=== PATIENT | male | born 1945 | race Caucasian/White ===

== ENCOUNTER → 2017-07-12 12:26 | Outpatient (CLI) | payer OTHER, SELFPAY ==
--- NOTE | 2017-07-12 | DI.ECHO.S_ITS ---
[facility] +---------+ : : [address] : : : : [id number] : : : : Phone: [phone]+ Echocardiogram Report + + :Name: KAMALA STRANGE Study Date: 07/12/2017 Height: 67 in : :[facility] Weight: 193 lb : : Gender: Male BSA: 2.0 m2 : :: 1945 Age: 72 yrs BP: 110/68 mmHg: :Reason For Study: Murmur : :Ordering Physician: Dr. Vizcaino : :Sandrinege Performed By: Ade Romeo : + + Interpretation Summary The left ventricle is normal in size, wall thickness, and systolic function without any focal wall motion abnormalities. The ejection fraction is estimated to be 60-65%. Assessment of diastolic parameters indicates a relaxation abnormality of the left ventricle, consistent with normal filling pressures. The right ventricle is at the upper limits of normal in size. The right ventricular systolic function is normal. The right ventricular systolic pressure is estimated at 30 mmHg assuming a right atrial pressure of 8 mm Hg. There is mild biatrial enlargement. There is an eccentric jet of aortic insufficiency directed against the anterior mitral leaflet which makes it difficult to assess. There is aortic regurgitation probably in the range of moderate. There is no other significant valvular heart disease. The aortic root is mildly dilated. The ascending aorta is mild-moderately enlarged. The aortic arch is mildly enlarged. Procedure: A two-dimensional transthoracic echocardiogram with color flow and Doppler was performed. The study quality was technically adequate. There is no prior echocardiogram noted for this patient. The patient was in normal sinus rhythm during the exam. Left Ventricle: The left ventricle is normal in size, wall thickness, and systolic function without any focal wall motion abnormalities. The ejection fraction is estimated to be 60-65%. Assessment of diastolic parameters indicates a relaxation abnormality of the left ventricle, consistent with normal filling pressures. Right Ventricle: The right ventricle is at the upper limits of normal in size. The right ventricular systolic function is normal. Atria: There is mild biatrial enlargement. There is no Doppler evidence for an interatrial shunt. Mitral Valve: The mitral valve leaflets appear mildly thickened, but open well. There is trace mitral regurgitation. Aortic Valve: The aortic valve is trileaflet. The aortic valve opens well. There is an eccentric jet of aortic insufficiency directed against the anterior mitral leaflet. There is aortic regurgitation probably in the range of moderate. Tricuspid Valve: The tricuspid valve is normal in structure and function. There is a trace or physiologic amount of tricuspid regurgitation. The right ventricular systolic pressure is estimated at 30 mmHg assuming a right atrial pressure of 8 mm Hg. Pulmonic Valve: The pulmonic valve is not well visualized. There is a trace or physiologic amount of pulmonic regurgitation. There is no other significant valvular heart disease. Great Vessels: The aortic root is mildly dilated. The ascending aorta is mild-moderately enlarged. The aortic arch is mildly enlarged. The IVC is dilated (diameter is greater than 2.1 cm) yet it collapses greater than 50% with a sniff. This suggests a right atrial pressure of 8 mm Hg. Pericardium/ Pleura There is no pericardial effusion. MMode/2D Measurements & Calculations LVIDd: 4.5 cm LVOT diam: 2.3 cm LVIDs: 2.1 cm Ao root diam: 4.4 cm FS: 53.6 % Aortic Jxn: 3.1 cm EPSS: 0.23 cm asc Aorta Diam: 4.0 cm IVSd: 1.1 cm Ao Arch Diam (Prox Trans): 3.5 cm LVPWd: 0.90 cm LV ackerman. diameter/BSA (cm/m^2): 2.3 LV sys. diameter/BSA (cm/m^2): 1.0 LA A2 area: 24.0 cm2 RA long axis: 6.0 cm LA A4 area: 24.6 cm2 RA area: 21.5 cm2 LA length (vol): 6.1 cm RA vol: 65.3 ml LA vol: 81.7 ml RA : 32.8 ml/m2 LA vol index: 41.0 ml/m2 IVC diam: 2.9 cm RVD1 (basal): 4.3 cm RVD2 (mid): 2.9 cm TAPSE: 3.2 cm Doppler Measurements & Calculations Ao V2 max: 154.0 cm/sec LVOT Max Kirill: 129.4 cm/sec Ao V2 mean: 81.8 cm/sec LV V1 max P.7 mmHg Ao max P.5 mmHg LV V1 VTI: 23.3 cm Ao mean P.6 mmHg GAYLE(I,D): 3.8 cm2 Ao V2 VTI: 26.0 cm GAYLE(V,D): 3.6 cm2 sev ratio: 0.90 GAYLE indexed to BSA (cm^2/m^2): 1.9 MV E max kirill: 61.4 cm/sec TR max kirill: 233.0 cm/sec MV A max kirill: 72.0 cm/sec TR max P.7 mmHg MV E/A: 0.85 PA V2 max: 75.3 cm/sec Med Peak E' Kirill: 5.8 cm/sec PA V2 mean: 53.1 cm/sec E/E' med: 10.7 PA mean P.3 mmHg Lat Peak E' Kirill: 6.6 cm/sec PA Accel Time: 0.07 sec E/E' lat: 9.3 E/e' average: 10.0 MV dec time: 0.31 sec MV P1/2t: 91.7 msec MV P1/2t max kirill: 62.1 cm/sec MVA(P1/2t): 2.4 cm2 Reading Physician:JOVON
== END ==
PROVIDERS: Family Provider Family Medicine; PCP Family Medicine; Visit Provider Family Medicine
DX: R01.1 Cardiac murmur, unspecified (principal)
CPT/HCPCS: 93306

== ENCOUNTER → 2017-07-23 08:30 | Outpatient (CLI) | payer OTHER, SELFPAY ==
[2017-07-23 10:01] LABS: Add Manual Diff / Slide Review NO; Basophils Percent Auto 0.9 % (0-2); Hematocrit 41.5 % (41-53); Hemoglobin 14.3 g/dL (13.5-17.5); Lymphocytes Percent Auto 23.3 % (25-40); Mean Corpuscular HGB Conc 34.4 % (30-36); Mean Corpuscular Hemoglobin 31.4 PG (26-34); Mean Corpuscular Volume 91.4 fL (80-100); Monocytes Percent Auto 9.8 % (3-14); Neutrophils Absolute Auto 3900 /uL (3000-5900); Platelet Count 254 X10^3/uL (150-400); Red Blood Cell Count 4.54 X10^6/uL (4.5-5.9); Red Cell Distribution Width 13.7 % (11.6-14.8); White Blood Cell Count 6.3 X10^3/uL (4.5-11.0)
[2017-07-23 10:12] LABS: Alanine Aminotransferase 27 IU/L (21-72); Albumin 4.1 g/dL (3.5-5.0); Albumin Globulin Ratio 1.3 (1.0-2.8); Alkaline Phosphatase 48 U/L (38-126); Aspartate Aminotransferase 26 IU/L (17-59); Bilirubin Total 0.7 mg/dL (0.2-1.3); Blood Urea Nitrogen 18 mg/dL (9-20); Calcium 9.1 mg/dL (8.4-10.2); Carbon Dioxide 32 mmol/L (22-32); Chloride 101 mmol/L (98-107); Cholesterol 202 mg/dL (140-199); Estimated Glomerular Filt Rate > 60.0 mL/min (>60); Globulin 3.1 g/dL (1.7-4.1); Glucose 94 mg/dL (80-110); HDL Cholesterol 47 mg/dL (40-60); HEMOLYSIS < 15 (0-50); LDL Cholesterol Calculated 132 mg/dL (<100); Potassium 4.6 mmol/L (3.4-5.1); Sodium 140 mmol/L (137-145); Total Protein 7.2 g/dL (6.3-8.2); Triglycerides 114 mg/dL (35-150)
[2017-07-23 10:40] LABS: TSH w/ Reflex to FT4 1.86 uIU/mL (0.47-4.68)
[2017-07-23 10:42] LABS: Prostate Specific Antigen Scrn 1.69 ng/mL (0.1-4.0)
== END ==
PROVIDERS: PCP Family Medicine; Visit Provider Family Medicine
DX: Z12.5 Encounter for screening for malignant neoplasm of prostate (principal); E78.5 Hyperlipidemia, unspecified
CPT/HCPCS: 36415; 80053; 80061; 84443; 85025; G0103

== ENCOUNTER → 2018-08-12 12:45 | Outpatient (CLI) | payer OTHER, SELFPAY ==
[2018-08-12 13:26] LABS: Add Manual Diff / Slide Review NO; Basophils Absolute Auto 100 /uL (0-100); Basophils Percent Auto 0.9 % (0-2); Eosinophils Absolute Auto 300 /uL (0-450); Eosinophils Percent Auto 4.2 % (2-4); Hematocrit 43.1 % (41-53); Hemoglobin 14.5 g/dL (13.5-17.5); Lymphocytes Absolute Auto 1500 /uL (1100-4500); Lymphocytes Percent Auto 24.2 % (25-40); Mean Corpuscular HGB Conc 33.6 % (30-36); Mean Corpuscular Hemoglobin 31.1 PG (26-34); Mean Corpuscular Volume 92.6 fL (80-100); Monocytes Absolute Auto 700 /uL (0-900); Neutrophils Absolute Auto 3700 /uL (1500-7000); Neutrophils Percent Auto 59.7 % (50-75); Platelet Count 268 X10^3/uL (150-400); Red Blood Cell Count 4.66 X10^6/uL (4.5-5.9); Red Cell Distribution Width 13.7 % (11.6-14.8); White Blood Cell Count 6.3 X10^3/uL (4.5-11.0)
[2018-08-12 13:37] LABS: Bacteria Urine None Seen
[2018-08-12 13:58] LABS: Appearance Urine UA CLEAR; Bilirubin Urine UA NEGATIVE (NEGATIVE); Color Urine UA YELLOW; Glucose Urine UA NEGATIVE (Negative); Ketones Urine UA NEGATIVE (NEGATIVE); Leukocyte Esterase Urine UA TRACE (NEGATIVE); Nitrite Urine UA NEGATIVE (Negative); Occult Blood Urine UA TRACE-LYSED (Negative); Protein Urine UA NEGATIVE (Negative); Urobilinogen Urine UA 0.2 E.U./dL (0.2)
[2018-08-12 14:38] LABS: RBC Urine 1-5/HPF (0-5/HPF); WBC Urine 1-5/HPF (0-5/HPF)
[2018-08-12 14:39] LABS: Culture Indicated Urine Specimen Cultured
[2018-08-12 14:55] LABS: Prostate Specific Antigen Scrn 1.49 ng/mL (0.1-4.0)
[2018-08-12 15:45] LABS: TSH w/ Reflex to FT4 1.63 uIU/mL (0.47-4.68)
== END ==
PROVIDERS: Family Provider Family Medicine; PCP Family Medicine; Visit Provider Family Medicine
DX: E78.5 Hyperlipidemia, unspecified (principal); I35.0 Nonrheumatic aortic (valve) stenosis; K21.9 Gastro-esophageal reflux disease without esophagitis; N40.0 Benign prostatic hyperplasia without lower urinary tract symptoms
CPT/HCPCS: 36415; 81001; 84443; 85025; 87086; G0103

== ENCOUNTER 2018-12-10 07:33 | Day surgery (SDC) | payer OTHER, SELFPAY ==
[2018-12-08 10:41] VITALS: BMI 26.2
[2018-12-10] VITALS (12 sets, daily range): BP systolic 113–127; BP diastolic 57–64; PULSE 56–78; RESP 12–16; TEMP 36.2–37.7; O2SAT 92–99; BMI 26.2
--- NOTE | 2018-12-10 06:00 | DI.RAD.S_ITS ---
PROCEDURE: XR CHEST 1V INDICATIONS: pre operative TECHNIQUE: One view of the chest was acquired. COMPARISON: [facility], , CHEST 2 VIEW, 01/18/2010, 8:10. FINDINGS: Surgical changes and devices: None. Lungs and pleura: There is a linear opacity in the left midlung compatible with atelectasis or scarring. No definite acute consolidation. No pleural effusions or pneumothorax. Mediastinum: Mediastinal contours appear normal. Heart size is normal. Bones and chest wall: No suspicious bony lesions. Overlying soft tissues appear unremarkable. IMPRESSION: 1. No definite acute cardiopulmonary disease. Dictated by: Tim Negrete M.D. on 12/10/2018 at 9:25 Approved by: Tim Negrete M.D. on 12/10/2018 at 9:26
[2018-12-10] MEDS: LACTATED RINGERS 1,000 ML 100 ML IV (08:00)
--- NOTE | 2018-12-10 08:41 | PM.PREOP ---
Pre-operative Note Interval Note History & Physical reviewed/Exam performed by Physician: Yes Changes to H&P: No H&P completed within 30 days and has changed as indicated here:: No changes since last visit. Risks and benefits of laparoscopic, possible open right and possible left inguinal hernia were discussed. The patient desires to proceed with surgery.
[2018-12-10] MEDS: CEFAZOLIN 2 GM/100 ML FROZ.PIGGY IV (08:48)
--- NOTE | 2018-12-10 09:23 | SUR.OPER ---
Supine on padded OR bed, head on pillow, bilateral arms padded and tucked at side, legs uncrossed, safety belt at thigh, tape over blanket over lower legs .
[2018-12-10] MEDS: BUPIVACAINE 0.25% W/ EPI 30 ML VIAL INJ (09:47)
[2018-12-10] MEDS: LACTATED RINGERS 1,000 ML 42 ML IV (10:31)
[2018-12-10] MEDS: ACETAMINOPHEN IV 1,000 MG/100 ML VIAL 400 MG IV (11:30)
--- NOTE | 2018-12-10 11:58 | PM.OP.1 ---
Operative Date/Time/Diagnoses Date of procedure: 12/10/18 Time of procedure: 11:58 Pre-op diagnosis: right side recurrent inguinal hernia; left side possible inguinal hernia. Post-op diagnosis: other (right side recurrent indirect inguinal hernia; left side indirect inguinal hernia) Procedure & Clinicians Procedure: Laparoscopic repair of recurrent right inguinal hernia without obstruction or gangrene; laparoscopic repair of non recurrent left inguinal hernia without obstruction or gangrene Same procedure as scheduled: Yes Indications: Symptomatic right inguinal hernia, suspected left inguinal hernia Surgeon: Marisol Gomez Click Yes if Unassisted: Yes Anesthesia Type: General and Local Operative Notes Findings: Large right were current indirect inguinal hernia, moderate-sized left non her current indirect inguinal hernia Closure Type: primary Specimen(s): none sent Applied: catheter Estimated Blood Loss (mL): 15 Blood products transfused: none Procedure in detail: Patient was brought to the operating room and placed supine on the OR table. Appropriate perioperative antibiotics were given and sequential compression devices placed on both legs and turned on. General anesthesia was induced the patient was intubated by Dr. Barnhart. The patient was then positioned with both arms tucked, and a Villalba was placed in sterile fashion. The groin hair was clipped, and the abdomen and bilateral groins were prepped and draped in sterile fashion. Surgical time-out was conducted. Local anesthetic with cord% Marcaine with epi was injected just superior to the umbilicus. A 1 cm vertical incision was made in the skin at this site and the umbilical stalk was grasped with a Woo and elevated Veress needle was passed through the fascia and a saline drop test was performed which was consistent with intra-abdominal positioning without obstruction. The abdomen was then insufflated with CO2 up to 15 mm of mercury. The patient tolerated this well. Once adequate insufflation was achieved the supraumbilical port was placed using a 5 mm optical trocar with a 5 mm 30 degree scope inside of it. Once the initial port was in good position and used the camera to take a look around the abdomen there were no injuries from port placement. There were some adhesions seen down in the pelvis. There was a deep indirect hernia defect seen on the right and a moderate indirect hernia defect seen on the left. At this point a 2nd 5 mm port was placed in the same fashion in the right midclavicular line at the level of the umbilicus. The umbilical port was then upsized to a 12 mm port, and an additional 5 mm port was placed on the left side in the midclavicular line at the level of the umbilicus and in the same fashion. Once all of our ports were placed in the patient was put into Trendelenburg position local anesthetic was injected in the inguinal canal and in the area of the proposed peritoneal incision using 0.25% Marcaine with epi, 30 cc on each side. Metzenbaum scissors with cautery was then used to open the peritoneum about 10 cm superior to the ASIS. A transverse incision was made from the midline laterally across the abdominal wall. The peritoneal flap was then dissected down to the level of the internal ring. This is a significant amount of scarring in this area consistent with her current inguinal hernia. Tedious dissection was carried out for about another 45 minutes to dissect down the hernia sac and surrounding adhesions. Once the entire myopectineal orifice was exposed I was able to examine the direct and femoral spaces and there was not a hernia seen in either space. At this point a right-sided anatomical hydrophilic Covidien mesh was placed into the abdomen and positioned in the defect covering the entire myopectineal orifice completely. The absorbable tacking device was used to secure it to the pubic tubercle with 2 tacks. Attention was then turned to the left groin. Local anesthetic was infiltrated in the same manner. A transverse peritoneal incision was made using Metzenbaum scissors and cautery in the same fashion as was done on the right this flap was developed all the way down to the inguinal canal, and the indirect hernia defect was exposed. The hernia sac was dissected down with relative ease. There was not nearly as significant scarring and adhesions as on the recurrence side. Once the entire myopectineal orifice was exposed, we were able to see there was no direct defect or femoral defect. A large 3DMax lightweight mesh was brought into the field it was soaked in saline and then placed through the umbilical port in the left groin defect. It was secured to the pubic tubercle with 2 absorbable tacks it was spread out entirely covering all potential defects in the entire myopectineal orifice. I then closed both peritoneal flaps using the absorbable tacking device with good mesh coverage, no bleeding, and no exposed mesh. On the right side there was a significant hernia sac which was hanging out of the center of the peritoneal flap. Used to a PDS endoloop to secure the neck of the hernia sac so that it would not invaginate and make a placed for bowel to become incarcerated. At the conclusion of the case both flaps were in good position with good mesh coverage and good hemostasis. The umbilical port site was then closed using transfascial 0 Vicryl sutures. The abdomen was desufflated. Local anesthetic was infiltrated at this umbilical port site as well as the other 2 port sites. The skin was closed with 3 0 Vicryl and 4 0 Monocryl. The skin edges were sealed with Dermabond. The patient was then awakened from anesthesia and extubated. He was transferred to the PACU in stable condition. Needle, sponge, and instrument counts were correct x2 at the end of the case. The Villalba catheter was removed prior to transfer to the PACU. Complications: none Post-operative Condition: stable Disposition: PACU
[2018-12-10] MEDS: fentaNYL 100 MCG/2 ML INJ 50 MCG IV ×2 (12:25→12:30)
[2018-12-10] MEDS: OXYCODONE IR 5 MG TABLET PO (12:45)
[2018-12-10] MEDS: ONDANSETRON 4 MG/2 ML INJ IV (13:01)
[2018-12-10] MEDS: ALBUTEROL 2.5 MG/3 ML NEB (ADULT) INH (13:55)
== END 2018-12-10 15:57 | disposition home or self-care (01) ==
PROVIDERS: PCP Family Medicine; Visit Provider Surgery
PROC: 0YQ54ZZ Repair Right Inguinal Region, Percutaneous Endoscopic Approach (ICD-10-PCS; CPT 49651; principal; 2018-12-10 08:45)
DX: K40.21 Bilateral inguinal hernia, without obstruction or gangrene, recurrent (principal); N40.0 Benign prostatic hyperplasia without lower urinary tract symptoms; K21.9 Gastro-esophageal reflux disease without esophagitis
CPT/HCPCS: 49651; 71045; 94640; 94762; C1781; J0131; J0330; J0690; J1100; J1885; J2250; J2405; J2704; J3010; J7613

== ENCOUNTER 2018-12-13 00:16 | Emergency (ER) | payer OTHER, SELFPAY ==
[2018-12-13 00:25] VITALS: BP 137/69; PULSE 77; RESP 16; TEMP 36.6; O2SAT 99; BMI 24.3
--- NOTE | 2018-12-13 00:31 | ED_ITS ---
HPI - SOB/Dyspnea General Chief Complaint: Shortness of Breath/Dyspnea Stated Complaint: operation on wed/when lay down cant breathe Time Seen by Provider: 12/13/18 00:16 Source: patient Mode of arrival: Family Vehicle Limitations: no limitations History of Present Illness HPI Narrative: 73-year-old male former smoker with history of GERD presents with multiple family members in the chief complaint of some difficulty in breathing over the past few days. He was recently seen and a hernia repaired. In the aftermath he denies any fever chills nor any abdominal pain, he is passing gas and having bowel movements. He does state that any time he lays flat he has difficulty breathing, when more questions are asked it becomes clear that it is not trouble breathing as much as he feels like he is choking on his secretions. He did have a brief endotracheal intubation during his procedure. He denies any weight gain or lower extremity edema. He denies any chest pain. He denies any sore throat but feels like the secretions pool at the back of his throat when he lays flat. MD Complaint: shortness of breath Onset (ago): day(s) Severity: mild Consistency/Duration: intermittent Exacerbating factors: lying flat Associated symptoms: denies other symptoms Treatment prior to arrival: none Related Data Home Medications Medication Instructions Recorded Confirmed lansoprazole 15 mg capsule,delayed 15 mg PO DAILY 12/04/18 12/10/18 release alprazolam [Xanax] 25 mg PO DAILY PRN 12/09/18 12/10/18 hydrocodone-acetaminophen [Vicodin] 1 tab PO Q4-6H PRN 12/09/18 12/10/18 Previous Rx's Medication Instructions Recorded naproxen 500 mg tablet 500 mg PO BID PRN #60 tab 02/28/18 docusate sodium 100 mg PO BID #60 cap 12/10/18 oxycodone 5 mg PO Q4H PRN #30 cap MDD 12 12/10/18 prednisone 20 mg PO DAILY #5 tab 12/13/18 Allergies Allergy/AdvReac Type Severity Reaction Status Date / Time No Known Drug Allergies Allergy Verified 12/04/18 10:16 Review of Systems Constitutional Constitutional: Denies chills, Denies fatigue, Denies fever(s), Denies frequent falls, Denies lethargy and Denies weakness Eyes Eyes: Denies change in vision, Denies eye discharge, Denies irritation and Denies loss of vision ENT Ears, Nose, Mouth, and Throat: Denies change in voice, Denies dizziness, Denies neck pain, Denies sore throat and Denies throat swelling Comments: Choking sensation Cardiovascular Cardiovascular: Denies chest pain, Denies irregular heart rhythm, Denies lightheadedness, Denies palpitations, Denies dyspnea, Denies dyspnea on exertion and Denies orthopnea Respiratory Respiratory: Denies cough, Denies dyspnea, Denies dyspnea on exertion and Denies wheezing Gastrointestinal Gastrointestinal: Denies abdominal pain, Denies change in bowel habits, Denies diarrhea, Denies nausea and Denies vomiting Genitourinary Genitourinary: Denies hematuria, Denies flank pain, Denies urinary incontinence and Denies urinary urgency Musculoskeletal Musculoskeletal: Denies back pain, Denies muscle weakness, Denies neck pain, Denies numbness and Denies tingling Integumentary/Breasts Skin/Breast: Denies pruritus, Denies erythema, Denies rash and Denies wounds Neurologic Neurologic: Denies behavioral changes, Denies confusion, Denies dizziness, Denies frequent falls, Denies loss of vision, Denies numbness, Denies tingling and Denies weakness Psychiatric Psychiatric: Denies anxiety, Denies behavioral changes, Denies confusion, Denies depression, Denies homicidal ideation and Denies suicidal ideation Endocrine Endocrine: Denies fatigue, Denies flushing and Denies palpitations Hematologic/Lymphatic Hematologic/Lymphatic: Denies easy bruising Allergic/Immunologic Allergic/Immunologic: Denies urticaria, Denies throat swelling and Denies wheezing Patient History Medical History (Updated 12/13/18 @ 00:46 by Mohsen Cervantes DO) Cervical spine disease (Chronic) Degenerative joint disease (DJD) of lumbar spine (Chronic) GERD (gastroesophageal reflux disease) (Chronic) Pneumonia (Acute) Scoliosis (Chronic) Surgical History (Updated 12/08/18 @ 10:50 by Chantelle Zhao RN) Anesthesia (Resolved) Anesthesia (Resolved) Status post hernia repair (Resolved 1987) Family History Brother Age: 76 Malignant neoplasm of liver, unspecified liver malignancy type Father Macular degeneration Mother GERD (gastroesophageal reflux disease) Throat cancer Sister Age: 75 Abdominal aortic aneurysm (AAA) without rupture Heart disease Social History marital status: household members: spouse occupational status: previously employed Smoking Status: Former smoker alcohol intake: current substance use type: does not use Social History marital status: household members: spouse occupational status: previously employed Smoking Status: Former smoker alcohol intake: current substance use type: does not use alcohol intake frequency: 0-2 drinks per day Substance Use Type: does not use Exam Narrative Exam Narrative: GEN: AOx3 and in mild distress EYES: Pupils are equal, round, and reactive to light and accommodation. Extraoccular muscles are intact bilaterally. There is no subconjunctival hemorrhage or exudate. ENT: Mild edema of uvula, no tonsillar swelling. No pharyngeal edema CHEST: Lungs are clear to auscultation bilaterally and free of wheezes, rales, or rhonchi. Heart rate is regular rhythm, there are no murmurs, clicks, rubs, or gallops. There is no chest wall tenderness. ABD: Abdomen is soft and nontender. There is no guarding or rebound. Bowel sounds are normal in all 4 quadrants. There is no mass or organomegaly. EXT: Full painless ROM of all extremities with no loss of sensation or strength. SKIN: Warm, pink, and dry. No erythema or rash Initial Vital Signs Initial Vital Signs: Vital Signs Temperature 98 F 12/13/18 00:25 Pulse Rate 77 12/13/18 00:25 Respiratory Rate 16 12/13/18 00:25 Blood Pressure 137/69 12/13/18 00:25 Pulse Oximetry 99 12/13/18 00:25 Course Orders Ordered: ED Orders 12/13/18 00:31 EKG-12 Lead Routine Discontinued Medications Prednisone (Deltasone) 40 mg PO NOW ONE Stop: 12/13/18 00:45 Last Admin: 12/13/18 01:08 Dose: 40 mg Documented by: LISA Vital Signs Vital signs: Vital Signs - 8 hr 12/13/18 00:25 Temperature 98 F Pulse Rate 77 Respiratory Rate 16 Blood Pressure 137/69 Pulse Oximetry 99 MDM - SOB/Dyspnea MDM Narrative Medical decision making narrative: Initially patient complains of shortness of breath but after quick discussion he has a choking sensation when he lays flat. He has no pain and no true shortness of breath. On exam he has no crackles and no lower extremity edema. He does have a slightly swollen uvula and my suspicion is that he has some pharyngeal irritation after his intubation. He is very stable, has a reassuring exam. Return precautions given and questions answered to their apparent satisfaction Discharge Plan Departure Patient Disposition: Home Clinical Impression: Uvulitis Discharge Date/Time: 12/13/18 01:20 Instructions: DI for Uvulitis Activity Restrictions/Additional Instructions: *You have been diagnosed with [ choking sensation due to mildly swollen uvula ] *What to do: *Take medications as directed: Over the counter antihistamines, decongestants. [facility] *Follow up with your primary care provider in 2-3 days, call for an appointment. Let them know you were seen in the Emergency Department and that we ask that you be seen in follow up *Return to ER if you should have any new, worsening or concerning symptoms such as worsening trouble with swallowing, breathing or other troublesome sym ptoms Prescriptions: New prednisone 20 mg tablet 20 mg PO DAILY Qty: 5 RF: 0 No Action naproxen 500 mg tablet 500 mg PO BID PRN (Reason: pain) Qty: 60 RF: 5 lansoprazole 15 mg capsule,delayed release(DR/EC) 15 mg PO DAILY RF: 0 alprazolam [Xanax] 2 mg tablet 25 mg PO DAILY PRN (Reason: Anxiety) RF: 0 hydrocodone-acetaminophen [Vicodin] 5-300 mg Tablet 1 tab PO Q4-6H PRN (Reason: Pain) RF: 0 oxycodone 5 mg capsule 5 mg PO Q4H MDD 12 PRN (Reason: pain) Qty: 30 RF: 0 docusate sodium 100 mg capsule 100 mg PO BID Qty: 60 RF: 0 Referrals: Carrillo Roberts MD [Primary Care Provider] -
[2018-12-13] MEDS: predniSONE 20 MG TABLET 40 MG PO (01:08)
== END 2018-12-13 01:20 | disposition home or self-care (01) ==
PROVIDERS: Emergency Provider Emergency Medicine; PCP Family Medicine
DX: K12.2 Cellulitis and abscess of mouth (principal); R06.02 Shortness of breath
CPT/HCPCS: 93005; 99282; 99283

== ENCOUNTER → 2019-07-10 11:32 | Outpatient (CLI) | payer MEDICARE, SELFPAY ==
--- NOTE | 2019-07-10 12:04 | DI.CT.S_ITS ---
PROCEDURE: CT HEAD/BRAIN WO CON INDICATIONS: head injury with head TECHNIQUE: Noncontrast 4.5 mm thick angled axial sections acquired from the foramen magnum to the vertex, with coronal and sagittal reformats. For radiation dose reduction, the following was used: automated exposure control, adjustment of mA and/or kV according to patient size. COMPARISON: [facility], CT, HEAD WITHOUT CONTRAST, 12/27/2013, 19:57. FINDINGS: Image quality: Excellent. CSF spaces: Basal cisterns are patent. No extra-axial fluid collections. The ventricles are symmetric in size and shape. Brain: No intracranial bleeds or masses. There is cerebral volume loss for age, with resultant ventricular and sulcal prominence. There are periventricular and deep white matter chronic small vessel ischemic changes. There is intracranial internal carotid artery atherosclerosis. Skull and face: Calvarium and visualized facial bones appear intact, without suspicious lesions. Sinuses: Visualized sinuses and mastoids are clear. IMPRESSION: Normal for age, source of current persistent headaches symptoms is not seen. Dictated by: David Adair M.D. on 07/10/2019 at 12:30 Approved by: David Adair M.D. on 07/10/2019 at 12:31
== END ==
PROVIDERS: PCP Family Medicine; Referring Provider Family Medicine; Visit Provider Family Medicine
DX: S09.90XA Unspecified injury of head, initial encounter (principal); R51 Headache; X58.XXXA Exposure to other specified factors, initial encounter
CPT/HCPCS: 70450

== ENCOUNTER → 2019-11-27 09:16 | Outpatient (CLI) | payer MEDICARE, SELFPAY ==
[2019-11-29 09:27] LABS: COVID19 Sendout Not Detected (Not Detect)
== END ==
PROVIDERS: PCP Family Medicine; Visit Provider Physician Assistant
DX: Z11.59 Encounter for screening for other viral diseases (principal)
CPT/HCPCS: 87635

== ENCOUNTER → 2020-04-05 07:46 | Outpatient (CLI) | payer MEDICARE, SELFPAY ==
[2020-04-05 08:50] LABS: Add Manual Diff / Slide Review NO; Basophils Absolute Auto 100 /uL (0-100); Basophils Percent Auto 1.4 % (0-2); Eosinophils Absolute Auto 300 /uL (0-450); Eosinophils Percent Auto 5.5 % (2-4); Hematocrit 44.3 % (41-53); Hemoglobin 14.4 g/dL (13.5-17.5); Lymphocytes Absolute Auto 1800 /uL (1100-4500); Lymphocytes Percent Auto 31.9 % (25-40); Mean Corpuscular HGB Conc 32.6 % (30-36); Mean Corpuscular Hemoglobin 30.4 PG (26-34); Mean Corpuscular Volume 93.4 fL (80-100); Monocytes Absolute Auto 600 /uL (0-900); Neutrophils Absolute Auto 2900 /uL (1500-7000); Neutrophils Percent Auto 50.2 % (50-75); Platelet Count 276 X10^3/uL (150-400); Red Blood Cell Count 4.74 X10^6/uL (4.5-5.9); Red Cell Distribution Width 13.8 % (11.6-14.8); White Blood Cell Count 5.7 X10^3/uL (4.5-11.0)
[2020-04-05 08:56] LABS: Cholesterol 202 mg/dL (140-199); HDL Cholesterol 52 mg/dL (40-60); LDL Cholesterol Calculated 131 mg/dL (<100); Triglycerides 97 mg/dL (35-150)
[2020-04-05 09:26] LABS: Thyroid Stimulating Hormone 3.69 uIU/mL (0.47-4.68)
== END ==
PROVIDERS: PCP Family Medicine; Referring Provider Family Medicine; Visit Provider Family Medicine
DX: E78.5 Hyperlipidemia, unspecified (principal); N40.0 Benign prostatic hyperplasia without lower urinary tract symptoms; Z12.5 Encounter for screening for malignant neoplasm of prostate
CPT/HCPCS: 36415; 80061; 84443; 85025

== ENCOUNTER 2020-08-05 11:39 | Emergency (ER) | payer MEDICARE, SELFPAY ==
[2020-08-05 11:50] VITALS: BP 131/77; PULSE 71; RESP 14; TEMP 36.2; O2SAT 97; BMI 25.1
--- NOTE | 2020-08-05 12:26 | DI.RAD.S_ITS ---
PROCEDURE: XR ACUTE ABDOMEN SERIES INDICATIONS: abd pain TECHNIQUE: One view chest and two views of the abdomen were acquired. COMPARISON: [facility], CR, XR CHEST 1V, 12/10/2018, 7:45. FINDINGS: Surgical changes and devices: None. Chest: Left hemidiaphragm elevation and left basilar atelectasis. Lungs are clear. Heart size is normal. No pleural effusions. No pneumoperitoneum. Abdomen: Mildly distended small bowel loop is noted in left upper abdomen. There is paucity of distal small bowel gas and colonic gas. Moderate amount of stool in colon. No suspicious calcifications. Visualized solid organ contours appear normal. Bones: No suspicious bony lesions. Scoliosis and degenerative changes in thoracic and lumbar spine. IMPRESSION: Possible small bowel obstruction. Dictated by: Bailee Pierre M.D. on 08/05/2020 at 13:48 Approved by: Bailee Pierre M.D. on 08/05/2020 at 13:50
[2020-08-05 13:56] VITALS: BP 140/71; PULSE 58; O2SAT 98
--- NOTE | 2020-08-05 14:06 | ED.ABDPAIN ---
HPI - Abdominal Pain General Chief Complaint: Abdominal Pain Stated Complaint: bowel blockage/[facility] wants CT scan Time Seen by Provider: 08/05/20 14:06 Source: patient Mode of arrival: Ambulatory Limitations: no limitations History of Present Illness HPI narrative: 75-year-old male former smoker with history of aortic stenosis, hernia repair, hyperlipidemia, GERD presents with a chief complaint of lower abdominal pain over the past 5 days. He states the pain is become increasingly intense and seems to be intermittent without any obvious provocation or palliation. He denies radiation. His last bowel movement was this morning. He is nauseated but denies any vomiting. Denies any fever or chills. He has had no urinary complaints such as this urea, frequency or urgency. He was seen at the walk-in clinic and sent here for evaluation of a possible bowel obstruction MD complaint: abdominal pain Onset (ago): day(s) Pain Consistency: intermittent Location: RLQ Severity: moderate Quality: cramping and aching Radiation: none Migration to: no migration Relieving factors: nothing Exacerbating factors: nothing Associated symptoms: denies other symptoms Related Data Home Medications Medication Instructions Recorded Confirmed lansoprazole 15 mg capsule,delayed 15 mg PO DAILY 12/04/18 08/05/20 release cetirizine 10 mg capsule mg PO PRN 04/07/20 08/05/20 Previous Rx's Medication Instructions Recorded alprazolam 2 mg tablet 0.5 mg PO DAILY PRN #20 tab 11/10/19 naproxen 500 mg tablet 500 mg PO BID PRN #60 tab 04/07/20 tamsulosin 0.4 mg capsule 0.4 mg PO BEDTIME #60 cap 04/07/20 Allergies Allergy/AdvReac Type Severity Reaction Status Date / Time No Known Drug Allergies Allergy Verified 08/05/20 11:56 Review of Systems Constitutional Constitutional: Denies chills, Denies fatigue, Denies fever(s), Denies frequent falls, Denies lethargy and Denies weakness Eyes Eyes: Denies change in vision, Denies eye discharge, Denies irritation and Denies loss of vision ENT Ears, Nose, Mouth, and Throat: Denies change in voice, Denies dizziness, Denies neck pain, Denies sore throat and Denies throat swelling Cardiovascular Cardiovascular: Denies chest pain, Denies irregular heart rhythm, Denies lightheadedness, Denies palpitations, Denies dyspnea, Denies dyspnea on exertion and Denies orthopnea Respiratory Respiratory: Denies cough, Denies dyspnea, Denies dyspnea on exertion and Denies wheezing Gastrointestinal Gastrointestinal: Reports abdominal pain, Denies change in bowel habits, Denies diarrhea, Denies nausea and Denies vomiting Musculoskeletal Musculoskeletal: Denies neck pain and Denies numbness Integumentary/Breasts Skin/Breast: Denies pruritus, Denies erythema, Denies rash and Denies wounds Neurologic Neurologic: Denies behavioral changes, Denies confusion, Denies dizziness, Denies frequent falls, Denies loss of vision, Denies numbness and Denies weakness Psychiatric Psychiatric: Denies anxiety, Denies behavioral changes, Denies confusion, Denies depression, Denies homicidal ideation and Denies suicidal ideation Endocrine Endocrine: Denies fatigue, Denies flushing and Denies palpitations Hematologic/Lymphatic Hematologic/Lymphatic: Denies easy bruising Allergic/Immunologic Allergic/Immunologic: Denies urticaria, Denies throat swelling and Denies wheezing Patient History Medical History 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 GERD (gastroesophageal reflux disease) Pneumonia Scoliosis Surgical History Anesthesia Anesthesia Status post hernia repair (1987) Family History Brother Age: 78 Malignant neoplasm of liver, unspecified liver malignancy type Father Macular degeneration Mother GERD (gastroesophageal reflux disease) Throat cancer Sister Age: 77 Abdominal aortic aneurysm (AAA) without rupture Heart disease Social History marital status: household members: spouse occupational status: previously employed Smoking Status: Former smoker alcohol intake: current substance use type: does not use Smoking Status: Former smoker alcohol intake frequency: 0-2 drinks per day Substance Use Type: does not use Exam Narrative Exam Narrative: GENERAL: [75] year old patient appears stated age. Well-developed patient, in mild distress. HEAD: Atraumatic. Normocephalic. EYES: Pupils equal round and reactive. Extraocular motions intact. No scleral icterus. No injection or drainage. ENT: Nose without bleeding, purulent drainage. Throat without erythema, tonsillar hypertrophy or exudate. Airway patent. NECK: Trachea midline. Non tender CARDIOVASCULAR: Regular rate and rhythm without murmurs, gallops, or rubs. RESPIRATORY: Clear to auscultation. Breath sounds equal bilaterally. No wheezes, rales, or rhonchi. GASTROINTESTINAL: Abdomen soft, non-tender, nondistended. EXTREMITIES: No edema or joint tenderness. BACK: Nontender without deformity or crepitance. No flank tenderness. NEURO: AOx3. SKIN: No rash or erythema of visible areas Initial Vital Signs Initial Vital Signs: Vital Signs Temperature 97.2 F L 08/05/20 11:50 Pulse Rate 71 08/05/20 11:50 Respiratory Rate 14 08/05/20 11:50 Blood Pressure 131/77 08/05/20 11:50 Pulse Oximetry 97 08/05/20 11:50 Course Orders Ordered: Discontinued Medications Lactated Ringer's (Lactated Ringers) 1,000 mls @ 1,000 mls/hr IV BOLUS ONE Stop: 08/05/20 15:11 Last Infusion: 08/05/20 15:46 Dose: 0 mls/hr Documented by: [email or web address] Admin: 08/05/20 14:19 Dose: 1,000 mls/hr Documented by: [email or web address] Vital Signs Vital signs: Vital Signs - 8 hr 08/05/20 11:50 Temperature 97.2 F L Pulse Rate 71 Respiratory Rate 14 Blood Pressure 131/77 Pulse Oximetry 97 MDM - Abdominal Pain Lab Data Result diagrams: 08/05/20 14:07 08/05/20 14:07 Labs: Lab Results 08/05/20 08/05/20 Range/Units 14:07 14:07 WBC 7.6 (4.5-11.0) X10^3/uL RBC 4.90 (4.5-5.9) X10^6/uL Hgb 15.0 (13.5-17.5) g/dL Hct 45.1 (41-53) % MCV 92.1 (80-100) fL MCH 30.6 (26-34) PG MCHC 33.2 (30-36) % RDW 13.6 (11.6-14.8) % Plt Count 273 (150-400) X10^3/uL Neut % (Auto) 66.7 (50-75) % Lymph % (Auto) 19.3 L (25-40) % [place] % (Auto) 10.3 (3-14) % Eos % (Auto) 2.9 (2-4) % Baso % (Auto) 0.8 (0-2) % Neut # (Auto) 5100 (6801-2212) /uL Lymph # (Auto) 1500 (4235-1367) /uL [place] # (Auto) 800 (0-900) /uL Eos # (Auto) 200 (0-450) /uL Baso # (Auto) 100 (0-100) /uL Sodium 137 (137-145) mmol/L Potassium 4.3 (3.4-5.1) mmol/L Chloride 101 (98-107) mmol/L Carbon Dioxide 31 (22-32) mmol/L BUN 17 (9-20) mg/dL Creatinine 0.84 (0.66-1.25) mg/dL Estimated GFR > 60.0 (>60) mL/min BUN/Creatinine Ratio 20.2 (6-22) Glucose 89 (80-110) mg/dL Calcium 9.3 (8.4-10.2) mg/dL Total Bilirubin 0.6 (0.2-1.3) mg/dL AST 32 (17-59) IU/L ALT 19 (<50) IU/L Alkaline Phosphatase 48 (38-126) U/L Total Protein 7.7 (6.3-8.2) g/dL Albumin 4.3 (3.5-5.0) g/dL Globulin 3.4 (1.7-4.1) g/dL Albumin/Globulin Ratio 1.3 (1.0-2.8) Lipase 172 (23-300) U/L Point of care testing: Urine Dip Bedside Urine Glucose Negative Bedside Urine Bilirubin - Negative Bedside Urine Ketone - Negative Urine Specific [place] 1.030 Bedside Urine Occult Blood - Negative Bedside Urine pH 6 Bedside Urine Protein - Negative Bedside Urine Urobilinogen - Negative Bedside Urine Nitrite - Negative Bedside Urine Leukocytes - Negative Esterase Imaging Data Abdominal x-ray: Radiologist's Impression: Chart Viewer Diagnostics DATE TYPE STATUS REF RANGE/AUTHOR Hx Today 12:26 Yanet Pierre 07/10/19 12:04 David Adair 12/10/18 06:00 NegreteTim 07/12/17 00:00 Carlos EnriqueAdarsh Morton R 75, M0 1945 [facility] ER, Main ED R07 175.26cm 77.111kg BMI: 25.1kg/m? Abdominal Pain Search Chart No Data to Display ONSET Today 11:50 Adarsh Fritz 75 M [address] [address]HTdr ReportSigned Patient: Adarsh Fritz RMR#: [id number]: 5Acct:[id number]/Sex: 75 / MDate of Service: 08/05/20Loc: EDAccession Number: [id number] Procedure: XR acute abdomen series Ordering Provider: Elvira Mora D.O. PROCEDURE: XR ACUTE ABDOMEN SERIES INDICATIONS: abd pain TECHNIQUE: One view chest and two views of the abdomen were acquired. COMPARISON: [facility], CR, XR CHEST 1V, 12/10/2018, 7:45. FINDINGS: Surgical changes and devices: None. Chest: Left hemidiaphragm elevation and left basilar atelectasis. Lungs are clear. Heart size is normal. No pleural effusions. No pneumoperitoneum. Abdomen: Mildly distended small bowel loop is noted in left upper abdomen. There is paucity of distal small bowel gas and colonic gas. Moderate amount of stool in colon. No suspicious calcifications. Visualized solid organ contours appear normal. Bones: No suspicious bony lesions. Scoliosis and degenerative changes in thoracic and lumbar spine. IMPRESSION: Possible small bowel obstruction. Dictated by: Bailee Pierre M.D. on 08/05/2020 at 13:48 Approved by: Bailee Pierre M.D. on 08/05/2020 at 13:50 Discharge Plan Departure Patient Disposition: Home Clinical Impression: Abdominal pain Qualifiers: Abdominal location: generalized Qualified Code(s): R10.84 - Generalized abdominal pain Instructions: DI for Abdominal Pain-Adult Activity Restrictions/Additional Instructions: *You have been diagnosed with [abdominal pain. Your history, physical exam, labs and CT scan would suggest this is not a bowel obstruction and more likely another less concerning diagnosis called enteritis or ileus.] *What to do: *Please continue to take your regular medications as directed. [ ] New medication prescriptions sent to your pharmacy: [ ] [ ] New medication written as a paper prescription [x] No new medications given *Please follow up with your primary care provider in 2-3 days, call for an appointment. Let them know you were seen in the Emergency Department and that we ask that you be seen in follow up. We will electronically transmit a record of today's note if your PCP is in our system * please consider a clear liquid diet for the next 24-48 hours and then advance slowly as tolerated. *If you do not have a primary care provider please contact the [facility] Resource line at [phone]. They will ask some questions about your medical history and help get you set up with a doctor in the community. *Return to Emergency Department if you should have any new, worsening or concerning symptoms, such as [fever greater than 101 F, shaking chills, worsening pain, persistent vomiting or other bothersome symptoms] Prescriptions: No Action All Day Allergy (cetirizine) 10 mg capsule PO PRN (Reason: allergy symptoms) RF: 0 naproxen 500 mg tablet 500 mg PO BID PRN (Reason: pain) Qty: 60 RF: 1 tamsulosin [Flomax] 0.4 mg capsule 0.4 mg PO BEDTIME Qty: 60 RF: 3 alprazolam [Xanax] 2 mg tablet 0.5 mg PO DAILY PRN (Reason: Anxiety) Qty: 20 RF: 0 lansoprazole 15 mg capsule,delayed release(DR/EC) 15 mg PO DAILY RF: 0 Referrals: Carrillo Roberts MD [Primary Care Provider] -
--- NOTE | 2020-08-05 14:07 | DI.CT.S_ITS ---
PROCEDURE: CT ABDOMEN PELVIS W CON INDICATIONS: severe abdominal pain, concern for SBO TECHNIQUE: After the administration of intravenous contrast, 5 mm thick sections acquired from the diaphragm to the symphysis. 5 mm coronal and sagittal reformats were acquired. For radiation dose reduction, the following was used: automated exposure control, adjustment of mA and/or kV according to patient size. COMPARISON: [facility], CR, XR ACUTE ABDOMEN SERIES, 08/05/2020, 12:27. FINDINGS: Image quality: Excellent. ABDOMEN: Lung bases: 4 mm ground-glass nodule in the right lower lobe. Mild atelectatic change at the left lung base. Normal size heart. Small hiatal hernia. Solid organs: Liver is normal in size and enhancement. Gallbladder is unremarkable. Biliary system is non dilated. Pancreas enhances normally. Spleen is normal in size and enhancement. No adrenal nodules. Kidneys demonstrate normal size and enhancement, without hydronephrosis. Peritoneum and bowel: . There are few loops of mildly prominent central small bowel which demonstrate normal wall thickness and air-fluid levels. Increased quantity of solid stool is present in the proximal colon. No free fluid or air. Normal appendix. Nodes and vessels: No retroperitoneal or mesenteric adenopathy by size criteria. Subtle, nonspecific haziness in the central small bowel mesentery. No significant adenopathy. Aorta and inferior vena cava are normal in size. Mild abdominal aortic atherosclerotic calcification. Miscellaneous: No ventral hernias. PELVIS: Genitourinary: Bladder wall thickness is normal. Mild prostatomegaly. Probable prior left hernia repair. Miscellaneous: No inguinal hernias or adenopathy. Bones: No suspicious bony lesions. Moderate degenerative change in the hip joints, left worse than right and mild degenerative changes throughout the spine. No vertebral body compression fractures. IMPRESSION: 1. Air-fluid levels in minimally prominent distal small bowel loops but without wall thickening. Findings are most likely due to enteritis or ileus. Early or partial small bowel obstruction is less likely given lack of acute transition point or more proximal dilated bowel loops. 2. Increased colonic stool proximally. 3. Non-specific 4 mm ground-glass right lower lobe lung nodule. Recommend routine chest CT as an outpatient. 4. Prostatomegaly. 5. Hiatal hernia. Dictated by: Mehreen Anand M.D. on 08/05/2020 at 15:07 Approved by: Mehreen Anand M.D. on 08/05/2020 at 15:16
[2020-08-05 14:13] LABS: Add Manual Diff / Slide Review NO; Basophils Absolute Auto 100 /uL (0-100); Basophils Percent Auto 0.8 % (0-2); Eosinophils Absolute Auto 200 /uL (0-450); Eosinophils Percent Auto 2.9 % (2-4); Hematocrit 45.1 % (41-53); Lymphocytes Absolute Auto 1500 /uL (1100-4500); Lymphocytes Percent Auto 19.3 % (25-40); Mean Corpuscular HGB Conc 33.2 % (30-36); Mean Corpuscular Hemoglobin 30.6 PG (26-34); Mean Corpuscular Volume 92.1 fL (80-100); Monocytes Absolute Auto 800 /uL (0-900); Monocytes Percent Auto 10.3 % (3-14); Neutrophils Absolute Auto 5100 /uL (1500-7000); Neutrophils Percent Auto 66.7 % (50-75); Platelet Count 273 X10^3/uL (150-400); Red Cell Distribution Width 13.6 % (11.6-14.8); White Blood Cell Count 7.6 X10^3/uL (4.5-11.0)
[2020-08-05] MEDS: LACTATED RINGERS 1,000 ML 1000 ML IV (14:19)
[2020-08-05 14:31] LABS: Alanine Aminotransferase 19 IU/L (<50); Albumin 4.3 g/dL (3.5-5.0); Albumin Globulin Ratio 1.3 (1.0-2.8); Alkaline Phosphatase 48 U/L (38-126); Aspartate Aminotransferase 32 IU/L (17-59); BUN Creatinine Ratio 20.2 (6-22); Bilirubin Total 0.6 mg/dL (0.2-1.3); Blood Urea Nitrogen 17 mg/dL (9-20); Calcium 9.3 mg/dL (8.4-10.2); Carbon Dioxide 31 mmol/L (22-32); Chloride 101 mmol/L (98-107); Estimated Glomerular Filt Rate > 60.0 mL/min (>60); Globulin 3.4 g/dL (1.7-4.1); Glucose 89 mg/dL (80-110); HEMOLYSIS 25 (0-50); Lipase 172 U/L (23-300); Potassium 4.3 mmol/L (3.4-5.1); Sodium 137 mmol/L (137-145); Total Protein 7.7 g/dL (6.3-8.2)
== END 2020-08-05 15:51 | disposition home or self-care (01) ==
PROVIDERS: Emergency Medicine; Emergency Provider Emergency Medicine; PCP Family Medicine
DX: R10.84 Generalized abdominal pain (principal); R11.0 Nausea
CPT/HCPCS: 36415; 74022; 74177; 80053; 81003; 83690; 85025; 96360; 99284

== ENCOUNTER → 2021-03-09 10:50 | Outpatient (CLI) | payer MEDICARE, SELFPAY ==
[2021-03-09 11:33] LABS: Add Manual Diff / Slide Review NO; Basophils Absolute Auto 0 /uL (0-100); Basophils Percent Auto 0.8 % (0-2); Eosinophils Absolute Auto 200 /uL (0-450); Eosinophils Percent Auto 3.7 % (2-4); Hematocrit 42.4 % (41-53); Hemoglobin 14.3 g/dL (13.5-17.5); Lymphocytes Absolute Auto 1400 /uL (1100-4500); Lymphocytes Percent Auto 23.9 % (25-40); Mean Corpuscular HGB Conc 33.8 % (30-36); Mean Corpuscular Hemoglobin 30.8 PG (26-34); Monocytes Absolute Auto 600 /uL (0-900); Monocytes Percent Auto 10.1 % (3-14); Neutrophils Absolute Auto 3600 /uL (1500-7000); Neutrophils Percent Auto 61.5 % (50-75); Platelet Count 289 X10^3/uL (150-400); Red Blood Cell Count 4.66 X10^6/uL (4.5-5.9); Red Cell Distribution Width 13.9 % (11.6-14.8); White Blood Cell Count 5.9 X10^3/uL (4.5-11.0)
[2021-03-09 11:53] LABS: Alanine Aminotransferase 16 IU/L (<50); Albumin 4.3 g/dL (3.5-5.0); Albumin Globulin Ratio 1.4 (1.0-2.8); Alkaline Phosphatase 48 U/L (38-126); Aspartate Aminotransferase 25 IU/L (17-59); BUN Creatinine Ratio 15.2 (6-22); Bilirubin Total 0.5 mg/dL (0.2-1.3); Blood Urea Nitrogen 15 mg/dL (9-20); Calcium 9.4 mg/dL (8.4-10.2); Carbon Dioxide 30 mmol/L (22-32); Chloride 105 mmol/L (98-107); Cholesterol 241 mg/dL (140-199); Estimated Glomerular Filt Rate > 60.0 mL/min (>60); Glucose 107 mg/dL (80-110); HDL Cholesterol 57 mg/dL (40-60); HEMOLYSIS < 15 (0-50); LDL Cholesterol Calculated 147 mg/dL (<100); Potassium 4.2 mmol/L (3.4-5.1); Sodium 139 mmol/L (137-145); Total Protein 7.3 g/dL (6.3-8.2); Triglycerides 183 mg/dL (35-150)
[2021-03-09 12:23] LABS: Prostate Specific Antigen Scrn 1.86 ng/mL (0.1-4.0)
[2021-03-09 12:38] LABS: Thyroid Stimulating Hormone 1.94 uIU/mL (0.47-4.68)
== END ==
PROVIDERS: PCP Family Medicine; Referring Provider Family Medicine; Visit Provider Family Medicine
DX: E78.2 Mixed hyperlipidemia (principal); Z12.5 Encounter for screening for malignant neoplasm of prostate; N40.1 Benign prostatic hyperplasia with lower urinary tract symptoms; R35.0 Frequency of micturition
CPT/HCPCS: 36415; 80053; 80061; 84443; 85025; G0103

== ENCOUNTER → 2021-12-20 13:08 | Outpatient (CLI) | payer MEDICARE, SELFPAY ==
--- NOTE | 2022-01-03 10:11 | PM.CARDMON.1 ---
[facility] Report Referral & Results Date Patient Seen: 12/20/21 Requesting provider: Carrillo Roberts Indication: Dizziness Duration of monitoring (days): 7 Diary information: There were 2 patient triggered events associated with sinus rhythm and PVCs Data: Minimum heart rate identified was 45 beats per minute at 02:02 on 12/23/2021 Maximum sinus heart rate was 145 beats per minute at 17:28 on 12/20/2021 Maximum overall heart rate was 160 beats per minute at 13:36 on 12/14/2021 during a run of SVT Less than 1% of identified beats were ventricular or supraventricular ectopic in origin, which would classify them as rare. There were 7 runs of SVT the fastest being a 7 beat run at the above rate of 160 beats per minute, the longest lasting 14 beats at a rate of 108 beats per minute which suggest more atrial tachycardia rather than true SVT There were no episodes of atrial fibrillation or pauses of 3 seconds or longer identified on this study Impression: 6+ day quality assurance monitor body demonstrating rare brief runs of SVT as well as rare PACs and PVCs No clear etiology for dizziness identified on this study but clinical correlation is suggested
== END ==
PROVIDERS: PCP Family Medicine; Referring Provider Family Medicine; Visit Provider Family Medicine
DX: R42 Dizziness and giddiness (principal)
CPT/HCPCS: 93242; 93244

== ENCOUNTER → 2022-05-01 07:41 | Outpatient (CLI) | payer MEDICARE, SELFPAY ==
[2022-05-01 09:24] LABS: Add Manual Diff / Slide Review NO; Basophils Absolute Auto 100 /uL (0-100); Eosinophils Absolute Auto 200 /uL (0-450); Hematocrit 42.2 % (41-53); Lymphocytes Absolute Auto 1400 /uL (1100-4500); Mean Corpuscular HGB Conc 33.2 % (30-36); Mean Corpuscular Hemoglobin 30.6 PG (26-34); Mean Corpuscular Volume 92.2 fL (80-100); Monocytes Absolute Auto 700 /uL (0-900); Monocytes Percent Auto 12.8 % (3-14); Neutrophils Absolute Auto 2900 /uL (1500-7000); Neutrophils Percent Auto 55.2 % (50-75); Platelet Count 288 X10^3/uL (150-400); Red Blood Cell Count 4.57 X10^6/uL (4.5-5.9); Red Cell Distribution Width 13.7 % (11.6-14.8); White Blood Cell Count 5.3 X10^3/uL (4.5-11.0)
[2022-05-01 09:29] LABS: Alanine Aminotransferase 23 IU/L (<50); Albumin Globulin Ratio 1.4 (1.0-2.8); Alkaline Phosphatase 49 U/L (38-126); Aspartate Aminotransferase 29 IU/L (17-59); BUN Creatinine Ratio 18.8 (6-22); Bilirubin Total 0.8 mg/dL (0.2-1.3); Blood Urea Nitrogen 16 mg/dL (9-20); Calcium 8.9 mg/dL (8.4-10.2); Carbon Dioxide 29 mmol/L (22-32); Chloride 101 mmol/L (98-107); Cholesterol 202 mg/dL (140-199); Estimated Glomerular Filt Rate > 60 mL/min (>60); Globulin 2.8 g/dL (1.7-4.1); Glucose 87 mg/dL (80-110); HDL Cholesterol 60 mg/dL (40-60); HEMOLYSIS < 15 (0-50); LDL Cholesterol Calculated 129 mg/dL (<100); Potassium 4.2 mmol/L (3.4-5.1); Sodium 137 mmol/L (137-145); Total Protein 6.8 g/dL (6.3-8.2); Triglycerides 66 mg/dL (35-150)
[2022-05-01 10:26] LABS: TSH w/ Reflex to FT4 2.49 uIU/mL (0.47-4.68)
== END ==
PROVIDERS: PCP Family Medicine; Referring Provider Family Medicine; Visit Provider Family Medicine
DX: E78.2 Mixed hyperlipidemia (principal)
CPT/HCPCS: 36415; 80053; 80061; 84443; 85025

== ENCOUNTER → 2022-07-27 07:28 | Outpatient (CLI) | payer MEDICARE, SELFPAY ==
--- NOTE | 2022-07-27 07:29 | DI.RAD.S_ITS ---
PROCEDURE: XR LUMBAR SPINE 2-3V INDICATIONS: low back pain with radiculopathy TECHNIQUE: 3 views of the lumbar spine were acquired. COMPARISON: [facility], , L-SPINE 2-3 VIEWS, 07/16/2013, 4:23. FINDINGS: Bones: 5 [id number] vertebrae are present. There is normal bony alignment. No vertebral body compression fractures. No suspicious bony lesions. Convex left lumbar scoliosis present. Degenerative disc space narrowing hypertrophic facet joints noted throughout the exam particularly in the lower lumbar spine. Soft tissues: Overlying bowel gas pattern is normal. No suspicious soft tissue calcifications. IMPRESSION: Degenerative disc disease, arthropathy and lumbar levoscoliosis Approved by: Elian Baeza M.D. on 07/27/2022 at 10:42
== END ==
PROVIDERS: PCP Family Medicine; Referring Provider Family Medicine; Visit Provider Family Medicine
DX: M51.16 Intervertebral disc disorders with radiculopathy, lumbar region (principal); M47.26 Other spondylosis with radiculopathy, lumbar region; M41.9 Scoliosis, unspecified; M54.50 Low back pain, unspecified
CPT/HCPCS: 72100

== ENCOUNTER → 2023-05-07 08:35 | Outpatient (CLI) | payer MEDICARE, SELFPAY ==
[2023-05-07 09:05] LABS: Add Manual Diff / Slide Review NO; Basophils Absolute Auto 100 /uL (0-100); Basophils Percent Auto 1.4 % (0-2); Eosinophils Absolute Auto 300 /uL (0-450); Eosinophils Percent Auto 5.1 % (2-4); Hematocrit 41.1 % (41-53); Lymphocytes Absolute Auto 1800 /uL (1100-4500); Lymphocytes Percent Auto 32.1 % (25-40); Mean Corpuscular HGB Conc 34.1 % (30-36); Mean Corpuscular Hemoglobin 30.9 PG (26-34); Mean Corpuscular Volume 90.6 fL (80-100); Monocytes Absolute Auto 700 /uL (0-900); Monocytes Percent Auto 12.6 % (3-14); Neutrophils Absolute Auto 2700 /uL (1500-7000); Neutrophils Percent Auto 48.8 % (50-75); Platelet Count 304 X10^3/uL (150-400); Red Blood Cell Count 4.54 X10^6/uL (4.5-5.9); Red Cell Distribution Width 13.8 % (11.6-14.8); White Blood Cell Count 5.5 X10^3/uL (4.5-11.0)
[2023-05-07 09:18] LABS: HEMOLYSIS < 15 (0-50)
[2023-05-07 09:25] LABS: Alanine Aminotransferase 22 IU/L (<50); Albumin 3.9 g/dL (3.5-5.0); Albumin Globulin Ratio 1.2 (1.0-2.8); Alkaline Phosphatase 49 U/L (38-126); Aspartate Aminotransferase 31 IU/L (17-59); BUN Creatinine Ratio 22.6 (6-22); Bilirubin Total 0.6 mg/dL (0.2-1.3); Blood Urea Nitrogen 21 mg/dL (9-20); Calcium 9.6 mg/dL (8.4-10.2); Carbon Dioxide 33 mmol/L (22-32); Chloride 104 mmol/L (98-107); Cholesterol 208 mg/dL (140-199); Estimated Glomerular Filt Rate > 60 mL/min (>60); Globulin 3.2 g/dL (1.7-4.1); Glucose 86 mg/dL (80-110); HDL Cholesterol 58 mg/dL (40-60); LDL Cholesterol Calculated 136 mg/dL (<100); Potassium 4.4 mmol/L (3.4-5.1); Sodium 139 mmol/L (137-145); Total Protein 7.1 g/dL (6.3-8.2); Triglycerides 71 mg/dL (35-150)
[2023-05-07 09:57] LABS: Prostate Specific Antigen Scrn 2.32 ng/mL (0.1-4.0)
[2023-05-07 10:03] LABS: TSH w/ Reflex to FT4 2.37 uIU/mL (0.47-4.68)
== END ==
PROVIDERS: PCP Family Medicine; Referring Provider Family Medicine; Visit Provider Family Medicine
DX: Z12.5 Encounter for screening for malignant neoplasm of prostate (principal); E78.2 Mixed hyperlipidemia; N40.1 Benign prostatic hyperplasia with lower urinary tract symptoms; R35.0 Frequency of micturition
CPT/HCPCS: 36415; 80053; 80061; 84443; 85025; G0103

== ENCOUNTER → 2023-12-26 11:29 | Outpatient (CLI) | payer MEDICARE, SELFPAY ==
--- NOTE | 2023-12-26 11:30 | DI.RAD.S_ITS ---
PROCEDURE: XR KNEE RT 3V INDICATIONS: rt knee pain TECHNIQUE: 3 views of the knee were acquired. COMPARISON: None. FINDINGS: Bones: There are no osseous abnormalities. Joints: Mild degeneration of the medial tibial femoral joint appreciated. There is severe lateral facet of the patellofemoral joint degeneration of the lateral facet patellofemoral Facet of the patellofemoral joint. Small effusion noted. Soft tissues: Normal IMPRESSION: Degeneration. Small effusion Dictated by: Scott Quintero M.D. on 12/27/2023 at 8:15 Approved by: Scott Quintero M.D. on 12/27/2023 at 8:16
== END ==
PROVIDERS: Family Provider Family Medicine; PCP Family Medicine; Referring Provider Family Medicine; Visit Provider Family Medicine
DX: M17.11 Unilateral primary osteoarthritis, right knee (principal); M25.561 Pain in right knee; M25.461 Effusion, right knee
CPT/HCPCS: 73562

== ENCOUNTER 2023-12-31 08:15 | Outpatient (RCR) | payer MEDICARE, SELFPAY ==
--- NOTE | 2023-10-02 13:50 | PT.OTN ---
Current Diagnoses Other chronic pain (10/01/23) Pain in unspecified knee (10/01/23) Other spondylosis with radiculopathy, lumbar region (10/01/23) Low back pain, unspecified (10/01/23) Physical Therapy Treatment Note PT-OP-A Visit Information Start: 09/30/23 16:22 Freq: Status: Active Protocol: Document 10/01/23 08:13 [facility] (Rec: 10/01/23 09:11 [facility] [id number]) Out-Patient Physical Therapy Visit Information Visit Information Visit Type Initial Evaluation Visit Start Time 08:13 Visit Number 1 Evaluation Information Evaluation Date 10/01/23 PT-OP-B Current Condition Start: 09/30/23 16:22 Freq: Status: Active Protocol: Document 10/01/23 08:13 [facility] (Rec: 10/01/23 09:11 [facility] [id number]) Current Condition History of Current Condition Onset Date 3 years Current Complaints back pain, knee pain History of Current Condition Gradual onset back pain 3 years ago. Pain sharp at times, inc when stands up from sitting takes about 30 seconds for him to be comfortable. Pain starts often in left lower leg and runs all the way up to his back, numbness and occasional tingling. Left leg has occasionally given way, on stairs has to hold on very tightly. Right knee bothers him as well, especially on stairs; injured knee while riding motorized scooter and was pushing off with right leg to get up a hill and fell over in excrutiating pain 8-9 years ago. Right knee occasionally gives out. Never pursued any evaluation or treatment right knee. Now feels intensely going up and down stairs. Occasionally PMH: Levoscoliosis Pneumonia Reports diagnosed with scoliosis when he was 19 in the service, states 3 years painful. 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 Cervical spine disease Status post hernia repair ( 1987) Prior Treatments and Tests x-rays of spine: Degenerative disc disease, arthropathy and lumbar levoscoliosis Treatment Goals Patient/Caregiver Goals Decrease pain, improve function Prior Functional Status Baseline Function- ADL's Independent Baseline Function- Mobility Independent Baseline Function- Gait indep no device Baseline Function- Work/School retired Baseline Function- Other scoliosis Current Functional Impairments (Reported) Functional Limitations- ADL's painful Functional Limitations- Mobility/Gait decreased distance due to pain Functional Limitations- Work/School retired PT-OP-C Subjective Start: 09/30/23 16:22 Freq: Status: Active Protocol: Document 10/01/23 08:13 [facility] (Rec: 10/01/23 09:11 [facility] [id number]) Patient Questionnaires Lower Extremity Functional Scale LEFS Score 58 Oswestry Low Back Index Oswestry Score 42 OP-PT Pain Assessment Pain Assessment Grid Paper Pain Assessment Grid Completed Yes Location left lumbar spine and post/lat left leg Intensity 5 Description Aching,Radiating,Sharp Frequency Frequent Pain Aggravating Factors Changing Position,Activity, Exercise,Walking Pain Alleviating Factors Inactivity Pain Behaviors Pain Behaviors Facial Grimacing,Wincing PT-OP-G Mobility & Gait Start: 09/30/23 16:22 Freq: Status: Active Protocol: Document 10/01/23 08:13 [facility] (Rec: 10/02/23 13:49 [facility] [id number]) OP Mobility Evaluation Bed Mobility Rolling cues for logroll Transfers Sit to Stand decreased weight bearing right Floor Transfers unable Functional Movements Squats decreased weight bearing right OP Gait Assessment Gait Gait Assistance Required: Independent Assistive Devices Assistive Device None Gait Deviations General Gait Pattern Antalgic,Decreased Stride Length,Decreased Feet Clearance,Flexed Trunk Factors Limiting Gait Function Factors Limiting Gait Function Decreased Strength,Pain Stair Climbing Evaluation Evaluation Level of Assist On Stairs Independent Devices Stair Climbing Assistive Devices Left Railing,Right Railing Technique/Endurance Stair Climbing Technique Step Over Step PT-OP-H Neuro Start: 09/30/23 16:22 Freq: Status: Active Protocol: Document 10/01/23 08:13 [facility] (Rec: 10/02/23 13:49 [facility] [id number]) Sensation Evaluation Gross Sensation Gross Sensation WNL PT-OP-J Posture/Palpation/Skin Start: 09/30/23 16:22 Freq: Status: Active Protocol: Document 10/01/23 08:13 [facility] (Rec: 10/01/23 09:11 [facility] [id number]) Posture Evaluation Position Standing Head/C-Spine Posture Forward Head T-Spine Posture Increased Kyphosis L-Spine Posture Fixed Scoliosis on (L),Fixed Scoliosis on (R),Shifted Left Shoulder Posture (L) Rounded,(R) Rounded Weight Distribution Weight Shifted Left Hip Posture (L) Externally Rotated,(R) Externally Rotated Knee Posture (R) Genu Valgus Palpation Assessment Location left lumbar Palpation Findings Soft Tissue Tightness, Tenderness Palpation Details paraspinals, QL PT-OP-K Range of Motion Start: 09/30/23 16:22 Freq: Status: Active Protocol: Document 10/01/23 08:13 [facility] (Rec: 10/02/23 13:49 [facility] [id number]) Lumbar Spine Range of Motion Lumbar Spine Active Testing Position Standing Flexion 40 Extension 10 Rotation Left 30 Rotation Right 30 Lateral Flexion Left 25 Lateral Flexion Right 20 ROM Limitations Soft Tissue Tightness Hip Goniometric Range of Motion Hip acrloz Testing Position Supine Flexion w/Knee Flexed 100 Straight Leg Raise 50 Extension 0 Abduction 20 Internal Rotation 10 External Rotation 45 Hip ROM Limitations Hip ROM Limitations Soft Tissue Tightness,Pain PT-OP-L Special Tests Start: 09/30/23 16:22 Freq: Status: Active Protocol: Document 10/01/23 08:13 [facility] (Rec: 10/02/23 13:49 [facility] [id number]) Special Tests Lumbar Spine Special Tests Straight Leg Raise Test Results - Slump Test Results + inc pain Compression Test Results + inc pain Knee Special Tests Varus- 0 Degrees Test Results - Valgus- 0 Degrees Test Results - Mcgregor Chondromalacia Test Results - Anterior Draw Test Results - Neural Special Tests- Lower Body Sciatic Nerve Tension Test Results + L PT-OP-M Strength Start: 09/30/23 16:22 Freq: Status: Active Protocol: Document 10/01/23 08:13 [facility] (Rec: 10/02/23 13:49 [facility] [id number]) Trunk Strength Trunk Manual Muscle Testing Flexion 3+ Fair+ Extension 3- Fair- Core Stabilization poor Hip Strength Hip Manual Muscle Testing Left Flexion (L2) 4- Good- Extension (S1) 3- Fair- Abduction 3+ Fair+ External Rotation 4- Good- Internal Rotation 4- Good- Right Flexion (L2) 4 Good Extension (S1) 3- Fair- Abduction 3+ Fair+ External Rotation 3+ Fair+ Internal Rotation 4- Good- Knee Strength Knee Manual Muscle Testing Right Flexion (S2) 4 Good Extension (L3) 4 Good Left Flexion (S2) 4+ Good+ Extension (L3) 4+ Good+ Ankle/Foot Strength Ankle and Foot Manual Muscle Testing carloz Dorsiflexion (L4) 4+ Good+ Plantarflexion (S1) 4+ Good+ PT-OP-Q Treatments Start: 09/30/23 16:22 Freq: Status: Active Protocol: Document 10/01/23 08:13 [facility] (Rec: 10/02/23 13:50 [facility] [id number]) Self-Care/Home Management Treatment Education Patient Education Home Exercise Program,Posture PT-OP-T Assessment and Plan Start: 09/30/23 16:22 Freq: Status: Active Protocol: Document 10/01/23 08:13 [facility] (Rec: 10/01/23 09:11 [facility] [id number]) Physical Therapy Assessment Rehab Potential Rehabilitation Potential Good Evaluation Complexity Number of Personal Factors/Comorbidities 1-2 Number of Body Systems Impaired 3 Clinical Presentation at Evaluation Evolving Impairments Impairments Activity Tolerance,Gait,Pain, ROM,Strength Assessment Summary Assessment Patient presents to PT with function-limiting pain in his left lower back and SI with radicular symptoms posterior/ lateral left LE to ankle. Evaluation reveals scoliosis with left convexity lumbar, right thoracic with imparments in flexibility and strength throughout his trunk and LE's. Feel he will benefit from PT to address his impairments and help him return to more active and painfree function at home and in the community. POC was discussed and patient was in agreement. Physical Therapy Plan Frequency and Duration Frequency of Treatment 2x/Week Duration of treatment (weeks) 8 Plan of Care Start Date 10/01/23 Plan of Care End Date 12/01/23 Therapeutic Interventions Therapeutic Interventions Gait Training,Home Exercise Program,Manual Therapy, Neuromuscular Re-education, Patient/Caregiver Education, Self-Care/Home Management,Soft Tissue Mobilization,Taping, Therapeutic Activities, Therapeutic Exercises Modalities Cold Pack/Ice Massage,Electric Stimulation,Hot Packs, Infrared Therapy,Iontophoresis ,Ultrasound Next Visit Focus/Plan Next Note Type Treatment Note Next Visit Plan Review HEP, progress with ther ex for core and LE strengthening and flexibility, update written HEP as indicated.
--- NOTE | 2023-10-02 13:52 | PT.OPPOC ---
Physical, Occupational & Speech Therapy At [facility] Current Diagnoses Other chronic pain (10/01/23) Pain in unspecified knee (10/01/23) Other spondylosis with radiculopathy, lumbar region (10/01/23) Low back pain, unspecified (10/01/23) Visit Care Team Role Provider Type Carrillo Roberts MD Attending Provider Physician Family Provider Primary Care Provider Referring Provider Specialty: Family Practice Address: [address] [place] [address], [address], [facility] Email: [email or web address] Plan Of Care PT-OP-B Current Condition Start: 09/30/23 16:22 Freq: Status: Active Protocol: Document 10/01/23 08:13 JULIA (Rec: 10/01/23 09:11 SAK [id number]) Current Condition History of Current Condition Onset Date 3 years Current Complaints back pain, knee pain History of Current Condition Gradual onset back pain 3 years ago. Pain sharp at times, inc when stands up from sitting takes about 30 seconds for him to be comfortable. Pain starts often in left lower leg and runs all the way up to his back, numbness and occasional tingling. Left leg has occasionally given way, on stairs has to hold on very tightly. Right knee bothers him as well, especially on stairs; injured knee while riding motorized scooter and was pushing off with right leg to get up a hill and fell over in excrutiating pain 8-9 years ago. Right knee occasionally gives out. Never pursued any evaluation or treatment right knee. Now feels intensely going up and down stairs. Occasionally PMH: Levoscoliosis Pneumonia Reports diagnosed with scoliosis when he was 19 in the service, states 3 years painful. 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 Cervical spine disease Status post hernia repair ( 1987) Prior Treatments and Tests x-rays of spine: Degenerative disc disease, arthropathy and lumbar levoscoliosis Treatment Goals Patient/Caregiver Goals Decrease pain, improve function Prior Functional Status Baseline Function- ADL's Independent Baseline Function- Mobility Independent Baseline Function- Gait indep no device Baseline Function- Work/School retired Baseline Function- Other scoliosis Current Functional Impairments (Reported) Functional Limitations- ADL's painful Functional Limitations- Mobility/Gait decreased distance due to pain Functional Limitations- Work/School retired PT-OP-T Assessment and Plan Start: 09/30/23 16:22 Freq: Status: Active Protocol: Document 10/01/23 08:13 [facility] (Rec: 10/01/23 09:11 [facility] [id number]) Physical Therapy Assessment Rehab Potential Rehabilitation Potential Good Evaluation Complexity Number of Personal Factors/Comorbidities 1-2 Number of Body Systems Impaired 3 Clinical Presentation at Evaluation Evolving Impairments Impairments Activity Tolerance,Gait,Pain, ROM,Strength Assessment Summary Assessment Patient presents to PT with function-limiting pain in his left lower back and SI with radicular symptoms posterior/ lateral left LE to ankle. Evaluation reveals scoliosis with left convexity lumbar, right thoracic with imparments in flexibility and strength throughout his trunk and LE's. Feel he will benefit from PT to address his impairments and help him return to more active and painfree function at home and in the community. POC was discussed and patient was in agreement. Physical Therapy Plan Frequency and Duration Frequency of Treatment 2x/Week Duration of treatment (weeks) 8 Plan of Care Start Date 10/01/23 Plan of Care End Date 12/01/23 Therapeutic Interventions Therapeutic Interventions Gait Training,Home Exercise Program,Manual Therapy, Neuromuscular Re-education, Patient/Caregiver Education, Self-Care/Home Management,Soft Tissue Mobilization,Taping, Therapeutic Activities, Therapeutic Exercises Modalities Cold Pack/Ice Massage,Electric Stimulation,Hot Packs, Infrared Therapy,Iontophoresis ,Ultrasound Next Visit Focus/Plan Next Note Type Treatment Note Next Visit Plan Review HEP, progress with ther ex for core and LE strengthening and flexibility, update written HEP as indicated. Plan of Care Dates Plan of Care Start Date 10/01/23 Plan of Care End Date 12/01/23 Electronically Signed by: Betty De La Torre, PT 10/02/23 [id number] If you are in agreement with this Plan of Care, please return a signed and dated copy. I have reviewed this Plan of Care and certify that the skilled therapy services above are required to meet the patient?s needs. Physician Signature Date Printed Name and Credentials Clinical Instructor Signature Printed Name and Credentials
--- NOTE | 2023-10-02 14:24 | PT.OPPOC ---
Physical, Occupational & Speech Therapy At [facility] Current Diagnoses Other chronic pain (10/01/23) Pain in unspecified knee (10/01/23) Other spondylosis with radiculopathy, lumbar region (10/01/23) Low back pain, unspecified (10/01/23) Visit Care Team Role Provider Type Carrillo Roberts MD Attending Provider Physician Family Provider Primary Care Provider Referring Provider Specialty: Family Practice Address: [address] [place] [address], [address], [facility] Email: [email or web address] Plan Of Care PT-OP-B Current Condition Start: 09/30/23 16:22 Freq: Status: Active Protocol: Document 10/01/23 08:13 JULIA (Rec: 10/01/23 09:11 SAK [id number]) Current Condition History of Current Condition Onset Date 3 years Current Complaints back pain, knee pain History of Current Condition Gradual onset back pain 3 years ago. Pain sharp at times, inc when stands up from sitting takes about 30 seconds for him to be comfortable. Pain starts often in left lower leg and runs all the way up to his back, numbness and occasional tingling. Left leg has occasionally given way, on stairs has to hold on very tightly. Right knee bothers him as well, especially on stairs; injured knee while riding motorized scooter and was pushing off with right leg to get up a hill and fell over in excrutiating pain 8-9 years ago. Right knee occasionally gives out. Never pursued any evaluation or treatment right knee. Now feels intensely going up and down stairs. Occasionally PMH: Levoscoliosis Pneumonia Reports diagnosed with scoliosis when he was 19 in the service, states 3 years painful. 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 Cervical spine disease Status post hernia repair ( 1987) Prior Treatments and Tests x-rays of spine: Degenerative disc disease, arthropathy and lumbar levoscoliosis Treatment Goals Patient/Caregiver Goals Decrease pain, improve function Prior Functional Status Baseline Function- ADL's Independent Baseline Function- Mobility Independent Baseline Function- Gait indep no device Baseline Function- Work/School retired Baseline Function- Other scoliosis Current Functional Impairments (Reported) Functional Limitations- ADL's painful Functional Limitations- Mobility/Gait decreased distance due to pain Functional Limitations- Work/School retired PT-OP-T Assessment and Plan Start: 09/30/23 16:22 Freq: Status: Active Protocol: Document 10/01/23 08:13 [facility] (Rec: 10/01/23 09:11 [facility] [id number]) Physical Therapy Assessment Rehab Potential Rehabilitation Potential Good Evaluation Complexity Number of Personal Factors/Comorbidities 1-2 Number of Body Systems Impaired 3 Clinical Presentation at Evaluation Evolving Impairments Impairments Activity Tolerance,Gait,Pain, ROM,Strength Goals Four Impairment LEFS-lower extremity functional scale score 58% Short Term Goal (STG) Improve LEFS to at least 68% as measure of improved function and quality of life STG Duration 11/15/23 Linderman Machine Operator Goal (LTG) Improve LEFS to at least 80% as measure of improved function and quality of life LTG Duration 01/01/24 Three Impairment Oswestry disability index score 42% Short Term Goal (STG) Decrease Oswestry to no greater than 30% STG Duration 11/15/23 Alf Goal (LTG) Decrease Oswestry to no greater than 20% Two Impairment Impairments in strength, flexibility, and posture Short Term Goal (STG) Patient to be instructed in HEP for purposes of strength, flexibility, and postural correction STG Duration 11/15/23 Alf Goal (LTG) Patient to be independent and compliant with HEP and demonstrate improved postural awareness and ability to self correct without cues LTG Duration 01/01/24 One Impairment pain lumbar spine, SI with radicular symptoms left LE Short Term Goal (STG) Decrease pain by at least 50% with all ususal activities STG Duration 11/15/23 Alf Goal (LTG) Decrease pain by at least 75% with all usual activities. LTG Duration 01/01/24 Assessment Summary Assessment Patient presents to PT with function-limiting pain in his left lower back and SI with radicular symptoms posterior/ lateral left LE to ankle. Evaluation reveals scoliosis with left convexity lumbar, right thoracic with imparments in flexibility and strength throughout his trunk and LE's. Feel he will benefit from PT to address his impairments and help him return to more active and painfree function at home and in the community. POC was discussed and patient was in agreement. Physical Therapy Plan Frequency and Duration Frequency of Treatment 2x/Week Duration of treatment (weeks) 8 Plan of Care Start Date 10/01/23 Plan of Care End Date 12/01/23 Therapeutic Interventions Therapeutic Interventions Gait Training,Home Exercise Program,Manual Therapy, Neuromuscular Re-education, Patient/Caregiver Education, Self-Care/Home Management,Soft Tissue Mobilization,Taping, Therapeutic Activities, Therapeutic Exercises Modalities Cold Pack/Ice Massage,Electric Stimulation,Hot Packs, Infrared Therapy,Iontophoresis ,Ultrasound Next Visit Focus/Plan Next Note Type Treatment Note Next Visit Plan Review HEP, progress with ther ex for core and LE strengthening and flexibility, update written HEP as indicated. Plan of Care Dates Plan of Care Start Date 10/01/23 Plan of Care End Date 12/01/23 Electronically Signed by: Betty De La Torre, PT 10/02/23 1041 If you are in agreement with this Plan of Care, please return a signed and dated copy. I have reviewed this Plan of Care and certify that the skilled therapy services above are required to meet the patient?s needs. Physician Signature Date Printed Name and Credentials Clinical Instructor Signature Printed Name and Credentials
--- NOTE | 2023-10-15 09:02 | PT.OTN ---
Current Diagnoses Other chronic pain (10/15/23) Pain in unspecified knee (10/15/23) Other spondylosis with radiculopathy, lumbar region (10/15/23) Low back pain, unspecified (10/15/23) Physical Therapy Treatment Note PT-OP-A Visit Information Start: 09/30/23 16:22 Freq: Status: Active Protocol: Document 10/15/23 08:15 [facility] (Rec: 10/15/23 09:02 [facility] [id number]) Out-Patient Physical Therapy Visit Information Visit Information Visit Type Treatment Note Visit Start Time 08:16 Visit Number 2 Evaluation Information Evaluation Date 10/01/23 PT-OP-B Current Condition Start: 09/30/23 16:22 Freq: Status: Active Protocol: Document 10/15/23 08:15 SAK (Rec: 10/15/23 09:02 [facility] [id number]) Current Condition History of Current Condition Onset Date 3 years Current Complaints back pain, knee pain History of Current Condition Gradual onset back pain 3 years ago. Pain sharp at times, inc when stands up from sitting takes about 30 seconds for him to be comfortable. Pain starts often in left lower leg and runs all the way up to his back, numbness and occasional tingling. Left leg has occasionally given way, on stairs has to hold on very tightly. Right knee bothers him as well, especially on stairs; injured knee while riding motorized scooter and was pushing off with right leg to get up a hill and fell over in excrutiating pain 8-9 years ago. Right knee occasionally gives out. Never pursued any evaluation or treatment right knee. Now feels intensely going up and down stairs. Occasionally PMH: Levoscoliosis Pneumonia Reports diagnosed with scoliosis when he was 19 in the service, states 3 years painful. 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 Has been doing the exercises, also a couple exercises from a friend who is a PT. Feels he needs to make lsure he understands the exercises but states when he does the exercises he is more comfortable all day. PT-OP-G Mobility & Gait Start: 09/30/23 16:22 Freq: Status: Active Protocol: Document 10/01/23 08:13 [facility] (Rec: 10/02/23 13:49 [facility] [id number]) OP Mobility Evaluation Bed Mobility Rolling cues for logroll Transfers Sit to Stand decreased weight bearing right Floor Transfers unable Functional Movements Squats decreased weight bearing right OP Gait Assessment Gait Gait Assistance Required: Independent Assistive Devices Assistive Device None Gait Deviations General Gait Pattern Antalgic,Decreased Stride Length,Decreased Feet Clearance,Flexed Trunk Factors Limiting Gait Function Factors Limiting Gait Function Decreased Strength,Pain Stair Climbing Evaluation Evaluation Level of Assist On Stairs Independent Devices Stair Climbing Assistive Devices Left Railing,Right Railing Technique/Endurance Stair Climbing Technique Step Over Step PT-OP-H Neuro Start: 09/30/23 16:22 Freq: Status: Active Protocol: Document 10/01/23 08:13 [facility] (Rec: 10/02/23 13:49 [facility] [id number]) Sensation Evaluation Gross Sensation Gross Sensation WNL PT-OP-J Posture/Palpation/Skin Start: 09/30/23 16:22 Freq: Status: Active Protocol: Document 10/01/23 08:13 [facility] (Rec: 10/01/23 09:11 [facility] [id number]) Posture Evaluation Position Standing Head/C-Spine Posture Forward Head T-Spine Posture Increased Kyphosis L-Spine Posture Fixed Scoliosis on (L),Fixed Scoliosis on (R),Shifted Left Shoulder Posture (L) Rounded,(R) Rounded Weight Distribution Weight Shifted Left Hip Posture (L) Externally Rotated,(R) Externally Rotated Knee Posture (R) Genu Valgus Palpation Assessment Location left lumbar Palpation Findings Soft Tissue Tightness, Tenderness Palpation Details paraspinals, QL PT-OP-K Range of Motion Start: 09/30/23 16:22 Freq: Status: Active Protocol: Document 10/01/23 08:13 [facility] (Rec: 10/02/23 13:49 [facility] [id number]) Lumbar Spine Range of Motion Lumbar Spine Active Testing Position Standing Flexion 40 Extension 10 Rotation Left 30 Rotation Right 30 Lateral Flexion Left 25 Lateral Flexion Right 20 ROM Limitations Soft Tissue Tightness Hip Goniometric Range of Motion Hip carloz Testing Position Supine Flexion w/Knee Flexed 100 Straight Leg Raise 50 Extension 0 Abduction 20 Internal Rotation 10 External Rotation 45 Hip ROM Limitations Hip ROM Limitations Soft Tissue Tightness,Pain PT-OP-L Special Tests Start: 09/30/23 16:22 Freq: Status: Active Protocol: Document 10/01/23 08:13 [facility] (Rec: 10/02/23 13:49 [facility] [id number]) Special Tests Lumbar Spine Special Tests Straight Leg Raise Test Results - Slump Test Results + inc pain Compression Test Results + inc pain Knee Special Tests Varus- 0 Degrees Test Results - Valgus- 0 Degrees Test Results - Mcgregor Chondromalacia Test Results - Anterior Draw Test Results - Neural Special Tests- Lower Body Sciatic Nerve Tension Test Results + L PT-OP-M Strength Start: 09/30/23 16:22 Freq: Status: Active Protocol: Document 10/01/23 08:13 [facility] (Rec: 10/02/23 13:49 [facility] [id number]) Trunk Strength Trunk Manual Muscle Testing Flexion 3+ Fair+ Extension 3- Fair- Core Stabilization poor Hip Strength Hip Manual Muscle Testing Left Flexion (L2) 4- Good- Extension (S1) 3- Fair- Abduction 3+ Fair+ External Rotation 4- Good- Internal Rotation 4- Good- Right Flexion (L2) 4 Good Extension (S1) 3- Fair- Abduction 3+ Fair+ External Rotation 3+ Fair+ Internal Rotation 4- Good- Knee Strength Knee Manual Muscle Testing Right Flexion (S2) 4 Good Extension (L3) 4 Good Left Flexion (S2) 4+ Good+ Extension (L3) 4+ Good+ Ankle/Foot Strength Ankle and Foot Manual Muscle Testing carloz Dorsiflexion (L4) 4+ Good+ Plantarflexion (S1) 4+ Good+ PT-OP-Q Treatments Start: 09/30/23 16:22 Freq: Status: Active Protocol: Document 10/15/23 08:15 [facility]AK (Rec: 10/15/23 09:02 [facility] [id number]) Cardio Equipment Recumbent Stepper (Sci-Fit) Duration (Minutes) 5 Resistance 1 Seat Position 12 Other cues for neutral LE alignment Gym Equipment Shuttle Recovery Unilateral Squats Details pain right knee, dec to 25# Resistance 37 Reps/Time 10x2 Bilateral Squats Resistance 50 Reps/Time 10x2 Therapeutic Exercises Supine Exercises IT band stretch Reps/Minutes 2x30 Comments strap hamstring stretch Reps/Minutes 2x30 Comments with ankle pumps PPT Reps/Minutes 10x Sidelying Exercises sidebend stretch Sidelying Exercise Name laying on right, arm overhead Equipment Used towel roll under right side Reps/Minutes 2x30 Standing Exercises HC stretch Reps/Minutes 30 x 2 hamstring curl Reps/Minutes 10x Comments cues for upright posture, thighs parallel Manual Therapy Treatment Consent Patient gave verbal consent for manual Yes treatment Soft Tissue Mobilization left IT band, lateral quad Mobilization Type Instrument Assisted Body Position right sidelying Comments rolling pin Self-Care/Home Management Treatment Education Patient Education Home Exercise Program,Posture Other Education review HEP, with cues for correct performance, written cues on patient HEP PT-OP-T Assessment and Plan Start: 09/30/23 16:22 Freq: Status: Active Protocol: Document 10/15/23 08:15 [facility] (Rec: 10/15/23 09:02 [facility] [id number]) Physical Therapy Assessment Evaluation Complexity Clinical Presentation at Evaluation Evolving Impairments Impairments Activity Tolerance,Gait,Pain, ROM,Strength Goals Four Impairment LEFS-lower extremity functional scale score 58% Short Term Goal (STG) Improve LEFS to at least 68% as measure of improved function and quality of life STG Duration 11/15/23 Residential Goal (LTG) Improve LEFS to at least 80% as measure of improved function and quality of life LTG Duration 01/01/24 Three Impairment Oswestry disability index score 42% Short Term Goal (STG) Decrease Oswestry to no greater than 30% STG Duration 11/15/23 Residential Goal (LTG) Decrease Oswestry to no greater than 20% Two Impairment Impairments in strength, flexibility, and posture Short Term Goal (STG) Patient to be instructed in HEP for purposes of strength, flexibility, and postural correction STG Duration 11/15/23 Residential Goal (LTG) Patient to be independent and compliant with HEP and demonstrate improved postural awareness and ability to self correct without cues LTG Duration 01/01/24 One Impairment pain lumbar spine, SI with radicular symptoms left LE Short Term Goal (STG) Decrease pain by at least 50% with all ususal activities STG Duration 11/15/23 Supervisor Painting Shipyard Goal (LTG) Decrease pain by at least 75% with all usual activities. LTG Duration 01/01/24 Assessment Summary Assessment Patient needed moderate cues and corrections to HEP, improved understanding after review. Trial STM left IT band and lateral quad with rolling pin with good tolerance, patient expressing that it felt good and he will try to get one at [employer] store today. Physical Therapy Plan Frequency and Duration Frequency of Treatment 2x/Week Duration of treatment (weeks) 8 Plan of Care Start Date 10/01/23 Plan of Care End Date 12/01/23 Therapeutic Interventions Therapeutic Interventions Gait Training,Home Exercise Program,Manual Therapy, Neuromuscular Re-education, Patient/Caregiver Education, Self-Care/Home Management,Soft Tissue Mobilization,Taping, Therapeutic Activities, Therapeutic Exercises Modalities Cold Pack/Ice Massage,Electric Stimulation,Hot Packs, Infrared Therapy,Iontophoresis ,Ultrasound Next Visit Focus/Plan Next Note Type Treatment Note Next Visit Plan Assess response to today's treatment, progress as indicated with core strengthening, flexibility, and soft tissue mobilization
--- NOTE | 2023-10-17 09:07 | PT.OTN ---
Current Diagnoses Other chronic pain (10/17/23) Pain in unspecified knee (10/17/23) Other spondylosis with radiculopathy, lumbar region (10/17/23) Low back pain, unspecified (10/17/23) Physical Therapy Treatment Note PT-OP-A Visit Information Start: 09/30/23 16:22 Freq: Status: Active Protocol: Document 10/17/23 08:14 SAK (Rec: 10/17/23 08:59 SAK [id number]) Out-Patient Physical Therapy Visit Information Visit Information Visit Type Treatment Note Visit Start Time 08:15 Visit Number 3 Evaluation Information Evaluation Date 10/01/23 PT-OP-B Current Condition Start: 09/30/23 16:22 Freq: Status: Active Protocol: Document 10/17/23 08:14 SAK (Rec: 10/17/23 08:59 SAK [id number]) Current Condition History of Current Condition Onset Date 3 years Current Complaints back pain, knee pain History of Current Condition Gradual onset back pain 3 years ago. Pain sharp at times, inc when stands up from sitting takes about 30 seconds for him to be comfortable. Pain starts often in left lower leg and runs all the way up to his back, numbness and occasional tingling. Left leg has occasionally given way, on stairs has to hold on very tightly. Right knee bothers him as well, especially on stairs; injured knee while riding motorized scooter and was pushing off with right leg to get up a hill and fell over in excrutiating pain 8-9 years ago. Right knee occasionally gives out. Never pursued any evaluation or treatment right knee. Now feels intensely going up and down stairs. Occasionally PMH: Levoscoliosis Pneumonia Reports diagnosed with scoliosis when he was 19 in the service, states 3 years painful. 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 Got his rolling pin our, definitely feels need for it more on left side vs right. PT-OP-G Mobility & Gait Start: 09/30/23 16:22 Freq: Status: Active Protocol: Document 10/01/23 08:13 [facility] (Rec: 10/02/23 13:49 [facility] [id number]) OP Mobility Evaluation Bed Mobility Rolling cues for logroll Transfers Sit to Stand decreased weight bearing right Floor Transfers unable Functional Movements Squats decreased weight bearing right OP Gait Assessment Gait Gait Assistance Required: Independent Assistive Devices Assistive Device None Gait Deviations General Gait Pattern Antalgic,Decreased Stride Length,Decreased Feet Clearance,Flexed Trunk Factors Limiting Gait Function Factors Limiting Gait Function Decreased Strength,Pain Stair Climbing Evaluation Evaluation Level of Assist On Stairs Independent Devices Stair Climbing Assistive Devices Left Railing,Right Railing Technique/Endurance Stair Climbing Technique Step Over Step PT-OP-H Neuro Start: 09/30/23 16:22 Freq: Status: Active Protocol: Document 10/01/23 08:13 [facility] (Rec: 10/02/23 13:49 [facility] [id number]) Sensation Evaluation Gross Sensation Gross Sensation WNL PT-OP-J Posture/Palpation/Skin Start: 09/30/23 16:22 Freq: Status: Active Protocol: Document 10/01/23 08:13 [facility] (Rec: 10/01/23 09:11 [facility] [id number]) Posture Evaluation Position Standing Head/C-Spine Posture Forward Head T-Spine Posture Increased Kyphosis L-Spine Posture Fixed Scoliosis on (L),Fixed Scoliosis on (R),Shifted Left Shoulder Posture (L) Rounded,(R) Rounded Weight Distribution Weight Shifted Left Hip Posture (L) Externally Rotated,(R) Externally Rotated Knee Posture (R) Genu Valgus Palpation Assessment Location left lumbar Palpation Findings Soft Tissue Tightness, Tenderness Palpation Details paraspinals, QL PT-OP-K Range of Motion Start: 09/30/23 16:22 Freq: Status: Active Protocol: Document 10/01/23 08:13 [facility] (Rec: 10/02/23 13:49 [facility] [id number]) Lumbar Spine Range of Motion Lumbar Spine Active Testing Position Standing Flexion 40 Extension 10 Rotation Left 30 Rotation Right 30 Lateral Flexion Left 25 Lateral Flexion Right 20 ROM Limitations Soft Tissue Tightness Hip Goniometric Range of Motion Hip carloz Testing Position Supine Flexion w/Knee Flexed 100 Straight Leg Raise 50 Extension 0 Abduction 20 Internal Rotation 10 External Rotation 45 Hip ROM Limitations Hip ROM Limitations Soft Tissue Tightness,Pain PT-OP-L Special Tests Start: 09/30/23 16:22 Freq: Status: Active Protocol: Document 10/01/23 08:13 [facility] (Rec: 10/02/23 13:49 [facility] [id number]) Special Tests Lumbar Spine Special Tests Straight Leg Raise Test Results - Slump Test Results + inc pain Compression Test Results + inc pain Knee Special Tests Varus- 0 Degrees Test Results - Valgus- 0 Degrees Test Results - Mcgregor Chondromalacia Test Results - Anterior Draw Test Results - Neural Special Tests- Lower Body Sciatic Nerve Tension Test Results + L PT-OP-M Strength Start: 09/30/23 16:22 Freq: Status: Active Protocol: Document 10/01/23 08:13 [facility]AK (Rec: 10/02/23 13:49 [facility] [id number]) Trunk Strength Trunk Manual Muscle Testing Flexion 3+ Fair+ Extension 3- Fair- Core Stabilization poor Hip Strength Hip Manual Muscle Testing Left Flexion (L2) 4- Good- Extension (S1) 3- Fair- Abduction 3+ Fair+ External Rotation 4- Good- Internal Rotation 4- Good- Right Flexion (L2) 4 Good Extension (S1) 3- Fair- Abduction 3+ Fair+ External Rotation 3+ Fair+ Internal Rotation 4- Good- Knee Strength Knee Manual Muscle Testing Right Flexion (S2) 4 Good Extension (L3) 4 Good Left Flexion (S2) 4+ Good+ Extension (L3) 4+ Good+ Ankle/Foot Strength Ankle and Foot Manual Muscle Testing carloz Dorsiflexion (L4) 4+ Good+ Plantarflexion (S1) 4+ Good+ PT-OP-Q Treatments Start: 09/30/23 16:22 Freq: Status: Active Protocol: Document 10/17/23 08:14 [facility]AK (Rec: 10/17/23 08:59 [facility] [id number]) Cardio Equipment Recumbent Stepper (Sci-Fit) Duration (Minutes) 6 Resistance 2 Seat Position 12 Other cues for neutral LE alignment Gym Equipment Cable Column (Body Solid) HS curl Resistance 40 Reps/Time 10x2 Shuttle Recovery Unilateral Squats Resistance 37 Reps/Time 10x2 Bilateral Squats Resistance 62 Reps/Time 10x2 Therapeutic Exercises Supine Exercises tarik stretch Reps/Minutes 2x30 bridge Reps/Minutes 10x SAQ Reps/Minutes 10x SLR Reps/Minutes 10x Sidelying Exercises hip ab Reps/Minutes 10x Comments cues for core activation, leg lift straight up Self-Care/Home Management Treatment Education Patient Education Home Exercise Program,Posture Other Education self massage with use of tennis ball PT-OP-T Assessment and Plan Start: 09/30/23 16:22 Freq: Status: Active Protocol: Document 10/17/23 08:14 [facility] (Rec: 10/17/23 08:59 [facility] [id number]) Physical Therapy Assessment Impairments Impairments Activity Tolerance,Gait,Pain, ROM,Strength Goals Four Impairment LEFS-lower extremity functional scale score 58% Short Term Goal (STG) Improve LEFS to at least 68% as measure of improved function and quality of life STG Duration 11/15/23 [facility] Goal (LTG) Improve LEFS to at least 80% as measure of improved function and quality of life LTG Duration 01/01/24 Three Impairment Oswestry disability index score 42% Short Term Goal (STG) Decrease Oswestry to no greater than 30% STG Duration 11/15/23 [facility] Goal (LTG) Decrease Oswestry to no greater than 20% Two Impairment Impairments in strength, flexibility, and posture Short Term Goal (STG) Patient to be instructed in HEP for purposes of strength, flexibility, and postural correction STG Duration 11/15/23 Knife Setter Goal (LTG) Patient to be independent and compliant with HEP and demonstrate improved postural awareness and ability to self correct without cues LTG Duration 01/01/24 One Impairment pain lumbar spine, SI with radicular symptoms left LE Short Term Goal (STG) Decrease pain by at least 50% with all ususal activities STG Duration 11/15/23 Knife Setter Goal (LTG) Decrease pain by at least 75% with all usual activities. LTG Duration 01/01/24 Assessment Summary Assessment Good tolerance for progression of ther ex, demonstrated good understanding of new exercises and self massage. Physical Therapy Plan Frequency and Duration Frequency of Treatment 2x/Week Duration of treatment (weeks) 8 Plan of Care Start Date 10/01/23 Plan of Care End Date 12/01/23 Therapeutic Interventions Therapeutic Interventions Gait Training,Home Exercise Program,Manual Therapy, Neuromuscular Re-education, Patient/Caregiver Education, Self-Care/Home Management,Soft Tissue Mobilization,Taping, Therapeutic Activities, Therapeutic Exercises Modalities Cold Pack/Ice Massage,Electric Stimulation,Hot Packs, Infrared Therapy,Iontophoresis ,Ultrasound Next Visit Focus/Plan Next Note Type Treatment Note Next Visit Plan Continue ther ex progression as tolerated. REview new HEP from last sesison.
--- NOTE | 2023-10-17 09:08 | PT.OTN ---
Current Diagnoses Other chronic pain (10/17/23) Pain in unspecified knee (10/17/23) Other spondylosis with radiculopathy, lumbar region (10/17/23) Low back pain, unspecified (10/17/23) Physical Therapy Treatment Note PT-OP-A Visit Information Start: 09/30/23 16:22 Freq: Status: Active Protocol: Document 10/17/23 08:14 [facility] (Rec: 10/17/23 08:59 SAK [id number]) Out-Patient Physical Therapy Visit Information Visit Information Visit Type Treatment Note Visit Start Time 08:15 Visit Number 3 Evaluation Information Evaluation Date 10/01/23 PT-OP-B Current Condition Start: 09/30/23 16:22 Freq: Status: Active Protocol: Document 10/17/23 08:14 [facility]AK (Rec: 10/17/23 08:59 SAK [id number]) Current Condition History of Current Condition Onset Date 3 years Current Complaints back pain, knee pain History of Current Condition Gradual onset back pain 3 years ago. Pain sharp at times, inc when stands up from sitting takes about 30 seconds for him to be comfortable. Pain starts often in left lower leg and runs all the way up to his back, numbness and occasional tingling. Left leg has occasionally given way, on stairs has to hold on very tightly. Right knee bothers him as well, especially on stairs; injured knee while riding motorized scooter and was pushing off with right leg to get up a hill and fell over in excrutiating pain 8-9 years ago. Right knee occasionally gives out. Never pursued any evaluation or treatment right knee. Now feels intensely going up and down stairs. Occasionally PMH: Levoscoliosis Pneumonia Reports diagnosed with scoliosis when he was 19 in the service, states 3 years painful. 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 Got his rolling pin our, definitely feels need for it more on left side vs right. PT-OP-G Mobility & Gait Start: 09/30/23 16:22 Freq: Status: Active Protocol: Document 10/01/23 08:13 [facility] (Rec: 10/02/23 13:49 [facility] [id number]) OP Mobility Evaluation Bed Mobility Rolling cues for logroll Transfers Sit to Stand decreased weight bearing right Floor Transfers unable Functional Movements Squats decreased weight bearing right OP Gait Assessment Gait Gait Assistance Required: Independent Assistive Devices Assistive Device None Gait Deviations General Gait Pattern Antalgic,Decreased Stride Length,Decreased Feet Clearance,Flexed Trunk Factors Limiting Gait Function Factors Limiting Gait Function Decreased Strength,Pain Stair Climbing Evaluation Evaluation Level of Assist On Stairs Independent Devices Stair Climbing Assistive Devices Left Railing,Right Railing Technique/Endurance Stair Climbing Technique Step Over Step PT-OP-H Neuro Start: 09/30/23 16:22 Freq: Status: Active Protocol: Document 10/01/23 08:13 [facility] (Rec: 10/02/23 13:49 [facility] [id number]) Sensation Evaluation Gross Sensation Gross Sensation WNL PT-OP-J Posture/Palpation/Skin Start: 09/30/23 16:22 Freq: Status: Active Protocol: Document 10/01/23 08:13 [facility] (Rec: 10/01/23 09:11 [facility] [id number]) Posture Evaluation Position Standing Head/C-Spine Posture Forward Head T-Spine Posture Increased Kyphosis L-Spine Posture Fixed Scoliosis on (L),Fixed Scoliosis on (R),Shifted Left Shoulder Posture (L) Rounded,(R) Rounded Weight Distribution Weight Shifted Left Hip Posture (L) Externally Rotated,(R) Externally Rotated Knee Posture (R) Genu Valgus Palpation Assessment Location left lumbar Palpation Findings Soft Tissue Tightness, Tenderness Palpation Details paraspinals, QL PT-OP-K Range of Motion Start: 09/30/23 16:22 Freq: Status: Active Protocol: Document 10/01/23 08:13 [facility] (Rec: 10/02/23 13:49 [facility] [id number]) Lumbar Spine Range of Motion Lumbar Spine Active Testing Position Standing Flexion 40 Extension 10 Rotation Left 30 Rotation Right 30 Lateral Flexion Left 25 Lateral Flexion Right 20 ROM Limitations Soft Tissue Tightness Hip Goniometric Range of Motion Hip carloz Testing Position Supine Flexion w/Knee Flexed 100 Straight Leg Raise 50 Extension 0 Abduction 20 Internal Rotation 10 External Rotation 45 Hip ROM Limitations Hip ROM Limitations Soft Tissue Tightness,Pain PT-OP-L Special Tests Start: 09/30/23 16:22 Freq: Status: Active Protocol: Document 10/01/23 08:13 [facility] (Rec: 10/02/23 13:49 [facility] [id number]) Special Tests Lumbar Spine Special Tests Straight Leg Raise Test Results - Slump Test Results + inc pain Compression Test Results + inc pain Knee Special Tests Varus- 0 Degrees Test Results - Valgus- 0 Degrees Test Results - Mcgregor Chondromalacia Test Results - Anterior Draw Test Results - Neural Special Tests- Lower Body Sciatic Nerve Tension Test Results + L PT-OP-M Strength Start: 09/30/23 16:22 Freq: Status: Active Protocol: Document 10/01/23 08:13 [facility] (Rec: 10/02/23 13:49 [facility] [id number]) Trunk Strength Trunk Manual Muscle Testing Flexion 3+ Fair+ Extension 3- Fair- Core Stabilization poor Hip Strength Hip Manual Muscle Testing Left Flexion (L2) 4- Good- Extension (S1) 3- Fair- Abduction 3+ Fair+ External Rotation 4- Good- Internal Rotation 4- Good- Right Flexion (L2) 4 Good Extension (S1) 3- Fair- Abduction 3+ Fair+ External Rotation 3+ Fair+ Internal Rotation 4- Good- Knee Strength Knee Manual Muscle Testing Right Flexion (S2) 4 Good Extension (L3) 4 Good Left Flexion (S2) 4+ Good+ Extension (L3) 4+ Good+ Ankle/Foot Strength Ankle and Foot Manual Muscle Testing carloz Dorsiflexion (L4) 4+ Good+ Plantarflexion (S1) 4+ Good+ PT-OP-Q Treatments Start: 09/30/23 16:22 Freq: Status: Active Protocol: Document 10/17/23 08:14 [facility] (Rec: 10/17/23 08:59 [facility] [id number]) Cardio Equipment Recumbent Stepper (Sci-Fit) Duration (Minutes) 6 Resistance 2 Seat Position 12 Other cues for neutral LE alignment Gym Equipment Cable Column (Body Solid) HS curl Resistance 40 Reps/Time 10x2 Shuttle Recovery Unilateral Squats Resistance 37 Reps/Time 10x2 Bilateral Squats Resistance 62 Reps/Time 10x2 Therapeutic Exercises Supine Exercises marlon stretch Reps/Minutes 2x30 Comments side of table, PT manual stretch, try end of table next session bridge Reps/Minutes 10x SAQ Reps/Minutes 10x SLR Reps/Minutes 10x Sidelying Exercises hip ab Reps/Minutes 10x Comments cues for core activation, leg lift straight up sidebend stretch Sidelying Exercise Name HEP Self-Care/Home Management Treatment Education Patient Education Home Exercise Program,Posture Other Education self massage with use of tennis ball PT-OP-T Assessment and Plan Start: 09/30/23 16:22 Freq: Status: Active Protocol: Document 10/17/23 08:14 [facility] (Rec: 10/17/23 08:59 [facility] [id number]) Physical Therapy Assessment Impairments Impairments Activity Tolerance,Gait,Pain, ROM,Strength Goals Four Impairment LEFS-lower extremity functional scale score 58% Short Term Goal (STG) Improve LEFS to at least 68% as measure of improved function and quality of life STG Duration 11/15/23 Master Control Engineer Goal (LTG) Improve LEFS to at least 80% as measure of improved function and quality of life LTG Duration 01/01/24 Three Impairment Oswestry disability index score 42% Short Term Goal (STG) Decrease Oswestry to no greater than 30% STG Duration 11/15/23 [facility] Goal (LTG) Decrease Oswestry to no greater than 20% Two Impairment Impairments in strength, flexibility, and posture Short Term Goal (STG) Patient to be instructed in HEP for purposes of strength, flexibility, and postural correction STG Duration 11/15/23 Master Control Engineer Goal (LTG) Patient to be independent and compliant with HEP and demonstrate improved postural awareness and ability to self correct without cues LTG Duration 01/01/24 One Impairment pain lumbar spine, SI with radicular symptoms left LE Short Term Goal (STG) Decrease pain by at least 50% with all ususal activities STG Duration 11/15/23 [facility] Goal (LTG) Decrease pain by at least 75% with all usual activities. LTG Duration 01/01/24 Assessment Summary Assessment Good tolerance for progression of ther ex, demonstrated good understanding of new exercises and self massage. Physical Therapy Plan Frequency and Duration Frequency of Treatment 2x/Week Duration of treatment (weeks) 8 Plan of Care Start Date 10/01/23 Plan of Care End Date 12/01/23 Therapeutic Interventions Therapeutic Interventions Gait Training,Home Exercise Program,Manual Therapy, Neuromuscular Re-education, Patient/Caregiver Education, Self-Care/Home Management,Soft Tissue Mobilization,Taping, Therapeutic Activities, Therapeutic Exercises Modalities Cold Pack/Ice Massage,Electric Stimulation,Hot Packs, Infrared Therapy,Iontophoresis ,Ultrasound Next Visit Focus/Plan Next Note Type Treatment Note Next Visit Plan Continue ther ex progression as tolerated. REview new HEP from last sesison. Try Marlon stretch end of table. Consider trial
--- NOTE | 2023-10-21 16:30 | PT.OTN ---
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 Pain sharp at times, inc when stands up from sitting takes about 30 seconds for him to be comfortable. Pain starts often in left lower leg and runs all the way up to his back, numbness and occasional tingling. Left leg has occasionally given way, on stairs has to hold on very tightly. Right knee bothers him as well, especially on stairs; injured knee while riding motorized scooter and was pushing off with right leg to get up a hill and fell over in excrutiating pain 8-9 years ago. Right knee occasionally gives out. Never pursued any evaluation or treatment right knee. Now feels intensely going up and down stairs. Occasionally PMH: Levoscoliosis Pneumonia Reports diagnosed with scoliosis when he was 19 in the service, states 3 years painful. 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 Patient reports he has not had the pain in his left side like it was before, reports pain is once in a while and not as bad. PT-OP-G Mobility & Gait Start: 09/30/23 16:22 Freq: Status: Active Protocol: Document 10/01/23 08:13 SAK (Rec: 10/02/23 13:49 SAK [id number]) OP Mobility Evaluation Bed Mobility Rolling cues for logroll Transfers Sit to Stand decreased weight bearing right Floor Transfers unable Functional Movements Squats decreased weight bearing right OP Gait Assessment Gait Gait Assistance Required: Independent Assistive Devices Assistive Device None Gait Deviations General Gait Pattern Antalgic,Decreased Stride Length,Decreased Feet Clearance,Flexed Trunk Factors Limiting Gait Function Factors Limiting Gait Function Decreased Strength,Pain Stair Climbing Evaluation Evaluation Level of Assist On Stairs Independent Devices Stair Climbing Assistive Devices Left Railing,Right Railing Technique/Endurance Stair Climbing Technique Step Over Step PT-OP-H Neuro Start: 09/30/23 16:22 Freq: Status: Active Protocol: Document 10/01/23 08:13 SAK (Rec: 10/02/23 13:49 [facility] [id number]) Sensation Evaluation Gross Sensation Gross Sensation WNL PT-OP-J Posture/Palpation/Skin Start: 09/30/23 16:22 Freq: Status: Active Protocol: Document 10/01/23 08:13 SAK (Rec: 10/01/23 09:11 SAK [id number]) Posture Evaluation Position Standing Head/C-Spine Posture Forward Head T-Spine Posture Increased Kyphosis L-Spine Posture Fixed Scoliosis on (L),Fixed Scoliosis on (R),Shifted Left Shoulder Posture (L) Rounded,(R) Rounded Weight Distribution Weight Shifted Left Hip Posture (L) Externally Rotated,(R) Externally Rotated Knee Posture (R) Genu Valgus Palpation Assessment Location left lumbar Palpation Findings Soft Tissue Tightness, Tenderness Palpation Details paraspinals, QL PT-OP-K Range of Motion Start: 09/30/23 16:22 Freq: Status: Active Protocol: Document 10/01/23 08:13 SAK (Rec: 10/02/23 13:49 SAK [id number]) Lumbar Spine Range of Motion Lumbar Spine Active Testing Position Standing Flexion 40 Extension 10 Rotation Left 30 Rotation Right 30 Lateral Flexion Left 25 Lateral Flexion Right 20 ROM Limitations Soft Tissue Tightness Hip Goniometric Range of Motion Hip carloz Testing Position Supine Flexion w/Knee Flexed 100 Straight Leg Raise 50 Extension 0 Abduction 20 Internal Rotation 10 External Rotation 45 Hip ROM Limitations Hip ROM Limitations Soft Tissue Tightness,Pain PT-OP-L Special Tests Start: 09/30/23 16:22 Freq: Status: Active Protocol: Document 10/01/23 08:13 SAK (Rec: 10/02/23 13:49 SAK [id number]) Special Tests Lumbar Spine Special Tests Straight Leg Raise Test Results - Slump Test Results + inc pain Compression Test Results + inc pain Knee Special Tests Varus- 0 Degrees Test Results - Valgus- 0 Degrees Test Results - Mcgregor Chondromalacia Test Results - Anterior Draw Test Results - Neural Special Tests- Lower Body Sciatic Nerve Tension Test Results + L PT-OP-M Strength Start: 09/30/23 16:22 Freq: Status: Active Protocol: Document 10/01/23 08:13 [facility] (Rec: 10/02/23 13:49 [facility] [id number]) Trunk Strength Trunk Manual Muscle Testing Flexion 3+ Fair+ Extension 3- Fair- Core Stabilization poor Hip Strength Hip Manual Muscle Testing Left Flexion (L2) 4- Good- Extension (S1) 3- Fair- Abduction 3+ Fair+ External Rotation 4- Good- Internal Rotation 4- Good- Right Flexion (L2) 4 Good Extension (S1) 3- Fair- Abduction 3+ Fair+ External Rotation 3+ Fair+ Internal Rotation 4- Good- Knee Strength Knee Manual Muscle Testing Right Flexion (S2) 4 Good Extension (L3) 4 Good Left Flexion (S2) 4+ Good+ Extension (L3) 4+ Good+ Ankle/Foot Strength Ankle and Foot Manual Muscle Testing carloz Dorsiflexion (L4) 4+ Good+ Plantarflexion (S1) 4+ Good+ PT-OP-Q Treatments Start: 09/30/23 16:22 Freq: Status: Active Protocol: Document 10/21/23 08:05 AB (Rec: 10/21/23 09:49 AB [id number]) Therapeutic Exercises Supine Exercises marlon stretch Supine Exercise Name HEP Reps/Minutes 2x60 side of bed 60 X 1 edge of bed Comments With AROM knee flex X 10 bridge Reps/Minutes 10x SLR Reps/Minutes 10x hamstring stretch Reps/Minutes 1x30 Comments with ankle pumps Sidelying Exercises sidebend stretch Sidelying Exercise Name HEP Equipment Used towel roll under right side Reps/Minutes 1x30 Sitting Exercises seated hip abd with band Sitting Exercise Name HEP Side bilateral Resistance level 2 band Reps/Minutes one min x1 Standing Exercises hamstring curl Reps/Minutes 10x Comments cues for upright posture, thighs parallel Manual Therapy Treatment Soft Tissue Mobilization left IT band, lateral quad Body Location left quad and hip flexor at groin Mobilization Type Cross-Friction,Rolling PT-OP-T Assessment and Plan Start: 09/30/23 16:22 Freq: Status: Active Protocol: Document 10/21/23 08:05 AB (Rec: 10/21/23 09:49 AB [id number]) Physical Therapy Assessment Goals Four Impairment LEFS-lower extremity functional scale score 58% Short Term Goal (STG) Improve LEFS to at least 68% as measure of improved function and quality of life STG Duration 11/15/23 Transportation Security Screener Goal (LTG) Improve LEFS to at least 80% as measure of improved function and quality of life LTG Duration 01/01/24 Three Impairment Oswestry disability index score 42% Short Term Goal (STG) Decrease Oswestry to no greater than 30% STG Duration 11/15/23 Half-Way Goal (LTG) Decrease Oswestry to no greater than 20% Two Impairment Impairments in strength, flexibility, and posture Short Term Goal (STG) Patient to be instructed in HEP for purposes of strength, flexibility, and postural correction STG Duration 11/15/23 Transportation Security Screener Goal (LTG) Patient to be independent and compliant with HEP and demonstrate improved postural awareness and ability to self correct without cues LTG Duration 01/01/24 One Impairment pain lumbar spine, SI with radicular symptoms left LE Short Term Goal (STG) Decrease pain by at least 50% with all ususal activities STG Duration 11/15/23 Half-Way Goal (LTG) Decrease pain by at least 75% with all usual activities. LTG Duration 01/01/24 Assessment Summary Assessment Patient report having no pain end of session, good celina to Marlon stretches. Physical Therapy Plan Frequency and Duration Frequency of Treatment 2x/Week Duration of treatment (weeks) 8 Plan of Care Start Date 10/01/23 Plan of Care End Date 12/01/23 Next Visit Focus/Plan Next Note Type Treatment Note Next Visit Plan Continue ther ex progression as tolerated. REview new HEP from last session. assess to to HEP Marlon stretch end of table vs edge of bed. Consider trial sit to stand with band
--- NOTE | 2023-10-24 09:03 | PT.OTN ---
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 Pain sharp at times, inc when stands up from sitting takes about 30 seconds for him to be comfortable. Pain starts often in left lower leg and runs all the way up to his back, numbness and occasional tingling. Left leg has occasionally given way, on stairs has to hold on very tightly. Right knee bothers him as well, especially on stairs; injured knee while riding motorized scooter and was pushing off with right leg to get up a hill and fell over in excrutiating pain 8-9 years ago. Right knee occasionally gives out. Never pursued any evaluation or treatment right knee. Now feels intensely going up and down stairs. Occasionally PMH: Levoscoliosis Pneumonia Reports diagnosed with scoliosis when he was 19 in the service, states 3 years painful. 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 But many times pain would go into lower leg but not today. PT-OP-G Mobility & Gait Start: 09/30/23 16:22 Freq: Status: Active Protocol: Document 10/01/23 08:13 SAK (Rec: 10/02/23 13:49 [facility] [id number]) OP Mobility Evaluation Bed Mobility Rolling cues for logroll Transfers Sit to Stand decreased weight bearing right Floor Transfers unable Functional Movements Squats decreased weight bearing right OP Gait Assessment Gait Gait Assistance Required: Independent Assistive Devices Assistive Device None Gait Deviations General Gait Pattern Antalgic,Decreased Stride Length,Decreased Feet Clearance,Flexed Trunk Factors Limiting Gait Function Factors Limiting Gait Function Decreased Strength,Pain Stair Climbing Evaluation Evaluation Level of Assist On Stairs Independent Devices Stair Climbing Assistive Devices Left Railing,Right Railing Technique/Endurance Stair Climbing Technique Step Over Step PT-OP-H Neuro Start: 09/30/23 16:22 Freq: Status: Active Protocol: Document 10/01/23 08:13 SAK (Rec: 10/02/23 13:49 [facility] [id number]) Sensation Evaluation Gross Sensation Gross Sensation WNL PT-OP-J Posture/Palpation/Skin Start: 09/30/23 16:22 Freq: Status: Active Protocol: Document 10/01/23 08:13 SAK (Rec: 10/01/23 09:11 [facility] [id number]) Posture Evaluation Position Standing Head/C-Spine Posture Forward Head T-Spine Posture Increased Kyphosis L-Spine Posture Fixed Scoliosis on (L),Fixed Scoliosis on (R),Shifted Left Shoulder Posture (L) Rounded,(R) Rounded Weight Distribution Weight Shifted Left Hip Posture (L) Externally Rotated,(R) Externally Rotated Knee Posture (R) Genu Valgus Palpation Assessment Location left lumbar Palpation Findings Soft Tissue Tightness, Tenderness Palpation Details paraspinals, QL PT-OP-K Range of Motion Start: 09/30/23 16:22 Freq: Status: Active Protocol: Document 10/01/23 08:13 SAK (Rec: 10/02/23 13:49 [facility] [id number]) Lumbar Spine Range of Motion Lumbar Spine Active Testing Position Standing Flexion 40 Extension 10 Rotation Left 30 Rotation Right 30 Lateral Flexion Left 25 Lateral Flexion Right 20 ROM Limitations Soft Tissue Tightness Hip Goniometric Range of Motion Hip carloz Testing Position Supine Flexion w/Knee Flexed 100 Straight Leg Raise 50 Extension 0 Abduction 20 Internal Rotation 10 External Rotation 45 Hip ROM Limitations Hip ROM Limitations Soft Tissue Tightness,Pain PT-OP-L Special Tests Start: 09/30/23 16:22 Freq: Status: Active Protocol: Document 10/01/23 08:13 SAK (Rec: 10/02/23 13:49 SAK [id number]) Special Tests Lumbar Spine Special Tests Straight Leg Raise Test Results - Slump Test Results + inc pain Compression Test Results + inc pain Knee Special Tests Varus- 0 Degrees Test Results - Valgus- 0 Degrees Test Results - Mcgregor Chondromalacia Test Results - Anterior Draw Test Results - Neural Special Tests- Lower Body Sciatic Nerve Tension Test Results + L PT-OP-M Strength Start: 09/30/23 16:22 Freq: Status: Active Protocol: Document 10/01/23 08:13 SAK (Rec: 10/02/23 13:49 [facility] [id number]) Trunk Strength Trunk Manual Muscle Testing Flexion 3+ Fair+ Extension 3- Fair- Core Stabilization poor Hip Strength Hip Manual Muscle Testing Left Flexion (L2) 4- Good- Extension (S1) 3- Fair- Abduction 3+ Fair+ External Rotation 4- Good- Internal Rotation 4- Good- Right Flexion (L2) 4 Good Extension (S1) 3- Fair- Abduction 3+ Fair+ External Rotation 3+ Fair+ Internal Rotation 4- Good- Knee Strength Knee Manual Muscle Testing Right Flexion (S2) 4 Good Extension (L3) 4 Good Left Flexion (S2) 4+ Good+ Extension (L3) 4+ Good+ Ankle/Foot Strength Ankle and Foot Manual Muscle Testing carolz Dorsiflexion (L4) 4+ Good+ Plantarflexion (S1) 4+ Good+ PT-OP-Q Treatments Start: 09/30/23 16:22 Freq: Status: Active Protocol: Document 10/24/23 08:18 SP (Rec: 10/24/23 09:05 SP [id number]) Therapeutic Exercises Supine Exercises marlon stretch Supine Exercise Name HEP Side left Reps/Minutes 2x60 side of bed 60 X 1 edge of bed Comments RLE into KTC bridge Reps/Minutes 5 SH x10 Comments ed TA and not arch LB recruitment-good response IT band stretch Side left Equipment Used strap Reps/Minutes 2x30 Comments cues for knee straight, ankle neutral for isolateion ITB hamstring stretch Side left Reps/Minutes 1x30 then AP Comments with ankle pumps Sitting Exercises sit to stands Sitting Exercise Name initiated in PT- asked to perform- hand written on pre Reps/Minutes 5 reps Comments cued scoot fwd, hip hindge sit slower descend. Other Exercises quadruped child's pose /c SB Other Exercise Name reviewed self Side bilateral Reps/Minutes 30 Manual Therapy Treatment Consent Patient gave verbal consent for manual Yes treatment Soft Tissue Mobilization L hip Body Location glut med, piriformis Mobilization Type Rolling Self-Care/Home Management Treatment Education Patient Education Home Exercise Program,Joint Protection,Pain Management, Posture Other Education Ed side sleeping use pillow between BLEs for pelvic and hip neutral positioning for back health. Good response more comfortable PT-OP-T Assessment and Plan Start: 09/30/23 16:22 Freq: Status: Active Protocol: Document 10/24/23 08:18 SP (Rec: 10/24/23 09:05 SP [id number]) Physical Therapy Assessment Goals Four Impairment LEFS-lower extremity functional scale score 58% Short Term Goal (STG) Improve LEFS to at least 68% as measure of improved function and quality of life STG Duration 11/15/23 Senior Care Goal (LTG) Improve LEFS to at least 80% as measure of improved function and quality of life LTG Duration 01/01/24 Three Impairment Oswestry disability index score 42% Short Term Goal (STG) Decrease Oswestry to no greater than 30% STG Duration 11/15/23 [employer] Wheeler Goal (LTG) Decrease Oswestry to no greater than 20% Two Impairment Impairments in strength, flexibility, and posture Short Term Goal (STG) Patient to be instructed in HEP for purposes of strength, flexibility, and postural correction STG Duration 11/15/23 [employer] Wheeler Goal (LTG) Patient to be independent and compliant with HEP and demonstrate improved postural awareness and ability to self correct without cues LTG Duration 01/01/24 One Impairment pain lumbar spine, SI with radicular symptoms left LE Short Term Goal (STG) Decrease pain by at least 50% with all ususal activities STG Duration 11/15/23 Senior Care Goal (LTG) Decrease pain by at least 75% with all usual activities. LTG Duration 01/01/24 Assessment Summary Assessment Pt responded well to stretching HEP review. Reports decreased tension and more mobility post manual and stretching review for carryover home proficiency. Pt would benefit from addition of band to STS. Physical Therapy Plan Frequency and Duration Frequency of Treatment 2x/Week Duration of treatment (weeks) 8 Plan of Care Start Date 10/01/23 Plan of Care End Date 12/01/23 Therapeutic Interventions Therapeutic Interventions Gait Training,Home Exercise Program,Manual Therapy, Neuromuscular Re-education, Patient/Caregiver Education, Self-Care/Home Management,Soft Tissue Mobilization,Taping, Therapeutic Activities, Therapeutic Exercises Modalities Cold Pack/Ice Massage,Electric Stimulation,Hot Packs, Infrared Therapy,Iontophoresis ,Ultrasound Next Visit Focus/Plan Next Note Type Treatment Note Next Visit Plan Continue ther ex progression as tolerated. REview new HEP from last session. assess to to HEP Marlon stretch end of table vs edge of bed. Consider trial sit to stand with band PRogress functional progression ther ex with proper body mechanics
--- NOTE | 2023-10-29 12:30 | PT.OTN ---
Current Diagnoses Other chronic pain (10/29/23) Pain in unspecified knee (10/29/23) Other spondylosis with radiculopathy, lumbar region (10/29/23) Low back pain, unspecified (10/29/23) Physical Therapy Treatment Note PT-OP-A Visit Information Start: 09/30/23 16:22 Freq: Status: Active Protocol: Document 10/29/23 08:11 SAK (Rec: 10/29/23 09:03 SAK [id number]) Out-Patient Physical Therapy Visit Information Visit Information Visit Type Treatment Note Visit Start Time 08:12 Visit Number 6 Number of NEIGHBORHOOD CONSERVATION OFFICER Visits 0 Evaluation Information Evaluation Date 10/01/23 PT-OP-B Current Condition Start: 09/30/23 16:22 Freq: Status: Active Protocol: Document 10/29/23 08:11 SAK (Rec: 10/29/23 09:03 SAK [id number]) Current Condition History of Current Condition Onset Date 3 years Current Complaints back pain, knee pain History of Current Condition Gradual onset back pain 3 years ago. Pain sharp at times, inc when stands up from sitting takes about 30 seconds for him to be comfortable. Pain starts often in left lower leg and runs all the way up to his back, numbness and occasional tingling. Left leg has occasionally given way, on stairs has to hold on very tightly. Right knee bothers him as well, especially on stairs; injured knee while riding motorized scooter and was pushing off with right leg to get up a hill and fell over in excrutiating pain 8-9 years ago. Right knee occasionally gives out. Never pursued any evaluation or treatment right knee. Now feels intensely going up and down stairs. Occasionally PMH: Levoscoliosis Pneumonia Reports diagnosed with scoliosis when he was 19 in the service, states 3 years painful. 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 Overall improved. Reporting slight pain in his left foot/ ankle. Using a rolling pin on thigh PT-OP-G Mobility & Gait Start: 09/30/23 16:22 Freq: Status: Active Protocol: Document 10/01/23 08:13 [facility] (Rec: 10/02/23 13:49 [facility] [id number]) OP Mobility Evaluation Bed Mobility Rolling cues for logroll Transfers Sit to Stand decreased weight bearing right Floor Transfers unable Functional Movements Squats decreased weight bearing right OP Gait Assessment Gait Gait Assistance Required: Independent Assistive Devices Assistive Device None Gait Deviations General Gait Pattern Antalgic,Decreased Stride Length,Decreased Feet Clearance,Flexed Trunk Factors Limiting Gait Function Factors Limiting Gait Function Decreased Strength,Pain Stair Climbing Evaluation Evaluation Level of Assist On Stairs Independent Devices Stair Climbing Assistive Devices Left Railing,Right Railing Technique/Endurance Stair Climbing Technique Step Over Step PT-OP-H Neuro Start: 09/30/23 16:22 Freq: Status: Active Protocol: Document 10/01/23 08:13 [facility] (Rec: 10/02/23 13:49 [facility] [id number]) Sensation Evaluation Gross Sensation Gross Sensation WNL PT-OP-J Posture/Palpation/Skin Start: 09/30/23 16:22 Freq: Status: Active Protocol: Document 10/01/23 08:13 [facility] (Rec: 10/01/23 09:11 [facility] [id number]) Posture Evaluation Position Standing Head/C-Spine Posture Forward Head T-Spine Posture Increased Kyphosis L-Spine Posture Fixed Scoliosis on (L),Fixed Scoliosis on (R),Shifted Left Shoulder Posture (L) Rounded,(R) Rounded Weight Distribution Weight Shifted Left Hip Posture (L) Externally Rotated,(R) Externally Rotated Knee Posture (R) Genu Valgus Palpation Assessment Location left lumbar Palpation Findings Soft Tissue Tightness, Tenderness Palpation Details paraspinals, QL PT-OP-K Range of Motion Start: 09/30/23 16:22 Freq: Status: Active Protocol: Document 10/01/23 08:13 [facility] (Rec: 10/02/23 13:49 [facility] [id number]) Lumbar Spine Range of Motion Lumbar Spine Active Testing Position Standing Flexion 40 Extension 10 Rotation Left 30 Rotation Right 30 Lateral Flexion Left 25 Lateral Flexion Right 20 ROM Limitations Soft Tissue Tightness Hip Goniometric Range of Motion Hip carloz Testing Position Supine Flexion w/Knee Flexed 100 Straight Leg Raise 50 Extension 0 Abduction 20 Internal Rotation 10 External Rotation 45 Hip ROM Limitations Hip ROM Limitations Soft Tissue Tightness,Pain PT-OP-L Special Tests Start: 09/30/23 16:22 Freq: Status: Active Protocol: Document 10/01/23 08:13 [facility] (Rec: 10/02/23 13:49 [facility] [id number]) Special Tests Lumbar Spine Special Tests Straight Leg Raise Test Results - Slump Test Results + inc pain Compression Test Results + inc pain Knee Special Tests Varus- 0 Degrees Test Results - Valgus- 0 Degrees Test Results - Mcgregor Chondromalacia Test Results - Anterior Draw Test Results - Neural Special Tests- Lower Body Sciatic Nerve Tension Test Results + L PT-OP-M Strength Start: 09/30/23 16:22 Freq: Status: Active Protocol: Document 10/01/23 08:13 [facility] (Rec: 10/02/23 13:49 [facility] [id number]) Trunk Strength Trunk Manual Muscle Testing Flexion 3+ Fair+ Extension 3- Fair- Core Stabilization poor Hip Strength Hip Manual Muscle Testing Left Flexion (L2) 4- Good- Extension (S1) 3- Fair- Abduction 3+ Fair+ External Rotation 4- Good- Internal Rotation 4- Good- Right Flexion (L2) 4 Good Extension (S1) 3- Fair- Abduction 3+ Fair+ External Rotation 3+ Fair+ Internal Rotation 4- Good- Knee Strength Knee Manual Muscle Testing Right Flexion (S2) 4 Good Extension (L3) 4 Good Left Flexion (S2) 4+ Good+ Extension (L3) 4+ Good+ Ankle/Foot Strength Ankle and Foot Manual Muscle Testing carloz Dorsiflexion (L4) 4+ Good+ Plantarflexion (S1) 4+ Good+ PT-OP-Q Treatments Start: 09/30/23 16:22 Freq: Status: Active Protocol: Document 10/29/23 08:11 [facility] (Rec: 10/29/23 09:03 [facility] [id number]) Cardio Equipment Recumbent Stepper (Sci-Fit) Duration (Minutes) 8 Resistance 2 Seat Position 12 Other cues for neutral LE alignment Gym Equipment Sport Cord green cord Exercise Details fwd, side Cord/Resistance green Reps/Duration 5x ea Comments cues for neutral posture, core activation Therapeutic Exercises Supine Exercises bridge Reps/Minutes 5 SH x10 Comments ed TA and not arch LB recruitment-good response Sidelying Exercises hip ab Sidelying Exercise Name added HEP Reps/Minutes 10x Comments cues for core activation, leg lift straight up sidebend stretch Sidelying Exercise Name HEP Equipment Used towel roll under right side Reps/Minutes 1x30 Sitting Exercises seated hamstring stretch Reps/Minutes 2x30 sit to stands Sitting Exercise Name added to HEP Resistance L2 band distal thighs Reps/Minutes 10x Comments cued scoot fwd, hip hindge sit slower descend. seated hip abd with band Reps/Minutes 2x30 Standing Exercises goalpost arms Reps/Minutes 2x5 trunk SB ro right Standing Exercise Name overhead reach, and right SB Reps/Minutes 2x30 Manual Therapy Treatment Soft Tissue Mobilization L hip Body Location glut med, piriformis Mobilization Type Rolling Self-Care/Home Management Treatment Education Patient Education Home Exercise Program,Joint Protection,Pain Management, Posture Other Education Ed side sleeping use pillow between BLEs for pelvic and hip neutral positioning for back health. Good response more comfortable PT-OP-T Assessment and Plan Start: 09/30/23 16:22 Freq: Status: Active Protocol: Document 10/29/23 08:11 [facility] (Rec: 10/29/23 09:03 [facility] [id number]) Physical Therapy Assessment Goals Four Impairment LEFS-lower extremity functional scale score 58% Short Term Goal (STG) Improve LEFS to at least 68% as measure of improved function and quality of life STG Duration 11/15/23 Long-Term Goal (LTG) Improve LEFS to at least 80% as measure of improved function and quality of life LTG Duration 01/01/24 Three Impairment Oswestry disability index score 42% Short Term Goal (STG) Decrease Oswestry to no greater than 30% STG Duration 11/15/23 Long-Term Goal (LTG) Decrease Oswestry to no greater than 20% Two Impairment Impairments in strength, flexibility, and posture Short Term Goal (STG) Patient to be instructed in HEP for purposes of strength, flexibility, and postural correction STG Duration 11/15/23 Learning Disabilities Resource Teacher Goal (LTG) Patient to be independent and compliant with HEP and demonstrate improved postural awareness and ability to self correct without cues LTG Duration 01/01/24 One Impairment pain lumbar spine, SI with radicular symptoms left LE Short Term Goal (STG) Decrease pain by at least 50% with all ususal activities STG Duration 11/15/23 Long-Term Goal (LTG) Decrease pain by at least 75% with all usual activities. LTG Duration 01/01/24 Assessment Summary Assessment Patient exhibiting improving understanding of HEP and ways to relieve his symptoms (right sidebending, stretching), and given seated options for stretching) Trial moist heat today to hip and buttock. Physical Therapy Plan Frequency and Duration Frequency of Treatment 2x/Week Duration of treatment (weeks) 8 Plan of Care Start Date 10/01/23 Plan of Care End Date 12/01/23 Therapeutic Interventions Therapeutic Interventions Gait Training,Home Exercise Program,Manual Therapy, Neuromuscular Re-education, Patient/Caregiver Education, Self-Care/Home Management,Soft Tissue Mobilization,Taping, Therapeutic Activities, Therapeutic Exercises Modalities Cold Pack/Ice Massage,Electric Stimulation,Hot Packs, Infrared Therapy,Iontophoresis ,Ultrasound Next Visit Focus/Plan Next Note Type Treatment Note Next Visit Plan Continue to progress ther ex for postural correction, flexibility through hips, core stab.
--- NOTE | 2023-10-31 16:30 | PT.OTN ---
Current Diagnoses Other chronic pain (10/31/23) Pain in unspecified knee (10/31/23) Other spondylosis with radiculopathy, lumbar region (10/31/23) Low back pain, unspecified (10/31/23) Physical Therapy Treatment Note PT-OP-A Visit Information Start: 09/30/23 16:22 Freq: Status: Active Protocol: Document 10/31/23 16:20 SAK (Rec: 10/31/23 16:29 [facility] [id number]) Out-Patient Physical Therapy Visit Information Visit Information Visit Type Treatment Note Visit Start Time 14:32 Visit Stop Time 15:30 Visit Number 7 Number of DEEP SUBMERGENCE VEHICLE OPERATOR Visits 0 Evaluation Information Evaluation Date 10/01/23 PT-OP-B Current Condition Start: 09/30/23 16:22 Freq: Status: Active Protocol: Document 10/31/23 16:20 SAK (Rec: 10/31/23 16:29 [facility] [id number]) Current Condition History of Current Condition Onset Date 3 years Current Complaints back pain, knee pain History of Current Condition Gradual onset back pain 3 years ago. Pain sharp at times, inc when stands up from sitting takes about 30 seconds for him to be comfortable. Pain starts often in left lower leg and runs all the way up to his back, numbness and occasional tingling. Left leg has occasionally given way, on stairs has to hold on very tightly. Right knee bothers him as well, especially on stairs; injured knee while riding motorized scooter and was pushing off with right leg to get up a hill and fell over in excrutiating pain 8-9 years ago. Right knee occasionally gives out. Never pursued any evaluation or treatment right knee. Now feels intensely going up and down stairs. Occasionally PMH: Levoscoliosis Pneumonia Reports diagnosed with scoliosis when he was 19 in the service, states 3 years painful. 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 States he feels he has a lot of exercises and agreed to bring them to next session to go through and discuss most important, consider eliminating some. Patient Reported Progress Improving PT-OP-G Mobility & Gait Start: 09/30/23 16:22 Freq: Status: Active Protocol: Document 10/01/23 08:13 SAK (Rec: 10/02/23 13:49 [facility] [id number]) OP Mobility Evaluation Bed Mobility Rolling cues for logroll Transfers Sit to Stand decreased weight bearing right Floor Transfers unable Functional Movements Squats decreased weight bearing right OP Gait Assessment Gait Gait Assistance Required: Independent Assistive Devices Assistive Device None Gait Deviations General Gait Pattern Antalgic,Decreased Stride Length,Decreased Feet Clearance,Flexed Trunk Factors Limiting Gait Function Factors Limiting Gait Function Decreased Strength,Pain Stair Climbing Evaluation Evaluation Level of Assist On Stairs Independent Devices Stair Climbing Assistive Devices Left Railing,Right Railing Technique/Endurance Stair Climbing Technique Step Over Step PT-OP-H Neuro Start: 09/30/23 16:22 Freq: Status: Active Protocol: Document 10/01/23 08:13 [facility]AK (Rec: 10/02/23 13:49 [facility] [id number]) Sensation Evaluation Gross Sensation Gross Sensation WNL PT-OP-J Posture/Palpation/Skin Start: 09/30/23 16:22 Freq: Status: Active Protocol: Document 10/01/23 08:13 SAK (Rec: 10/01/23 09:11 [facility] [id number]) Posture Evaluation Position Standing Head/C-Spine Posture Forward Head T-Spine Posture Increased Kyphosis L-Spine Posture Fixed Scoliosis on (L),Fixed Scoliosis on (R),Shifted Left Shoulder Posture (L) Rounded,(R) Rounded Weight Distribution Weight Shifted Left Hip Posture (L) Externally Rotated,(R) Externally Rotated Knee Posture (R) Genu Valgus Palpation Assessment Location left lumbar Palpation Findings Soft Tissue Tightness, Tenderness Palpation Details paraspinals, QL PT-OP-K Range of Motion Start: 09/30/23 16:22 Freq: Status: Active Protocol: Document 10/01/23 08:13 SAK (Rec: 10/02/23 13:49 [facility] [id number]) Lumbar Spine Range of Motion Lumbar Spine Active Testing Position Standing Flexion 40 Extension 10 Rotation Left 30 Rotation Right 30 Lateral Flexion Left 25 Lateral Flexion Right 20 ROM Limitations Soft Tissue Tightness Hip Goniometric Range of Motion Hip carloz Testing Position Supine Flexion w/Knee Flexed 100 Straight Leg Raise 50 Extension 0 Abduction 20 Internal Rotation 10 External Rotation 45 Hip ROM Limitations Hip ROM Limitations Soft Tissue Tightness,Pain PT-OP-L Special Tests Start: 09/30/23 16:22 Freq: Status: Active Protocol: Document 10/01/23 08:13 [facility] (Rec: 10/02/23 13:49 [facility] [id number]) Special Tests Lumbar Spine Special Tests Straight Leg Raise Test Results - Slump Test Results + inc pain Compression Test Results + inc pain Knee Special Tests Varus- 0 Degrees Test Results - Valgus- 0 Degrees Test Results - Mcgregor Chondromalacia Test Results - Anterior Draw Test Results - Neural Special Tests- Lower Body Sciatic Nerve Tension Test Results + L PT-OP-M Strength Start: 09/30/23 16:22 Freq: Status: Active Protocol: Document 10/01/23 08:13 [facility] (Rec: 10/02/23 13:49 [facility] [id number]) Trunk Strength Trunk Manual Muscle Testing Flexion 3+ Fair+ Extension 3- Fair- Core Stabilization poor Hip Strength Hip Manual Muscle Testing Left Flexion (L2) 4- Good- Extension (S1) 3- Fair- Abduction 3+ Fair+ External Rotation 4- Good- Internal Rotation 4- Good- Right Flexion (L2) 4 Good Extension (S1) 3- Fair- Abduction 3+ Fair+ External Rotation 3+ Fair+ Internal Rotation 4- Good- Knee Strength Knee Manual Muscle Testing Right Flexion (S2) 4 Good Extension (L3) 4 Good Left Flexion (S2) 4+ Good+ Extension (L3) 4+ Good+ Ankle/Foot Strength Ankle and Foot Manual Muscle Testing carloz Dorsiflexion (L4) 4+ Good+ Plantarflexion (S1) 4+ Good+ PT-OP-Q Treatments Start: 09/30/23 16:22 Freq: Status: Active Protocol: Document 10/31/23 16:20 [facility] (Rec: 10/31/23 16:29 [facility] [id number]) Cardio Equipment Recumbent Stepper (Sci-Fit) Duration (Minutes) 8 Resistance 2.3 Seat Position 12 Other cues for neutral LE alignment Therapeutic Exercises Supine Exercises tarik stretch Supine Exercise Name HEP Side left Reps/Minutes 2x30 end of bed, mod assist PT for LE alignment Comments RLE into KTC Sidelying Exercises hip ab Sidelying Exercise Name added HEP Reps/Minutes 10x Comments cues for core activation, leg lift straight up sidebend stretch Sidelying Exercise Name HEP Equipment Used towel roll under right side Reps/Minutes 1x30 Sitting Exercises sit to stands Resistance L2 band distal thighs Reps/Minutes 10x Comments cued scoot fwd, hip hindge sit slower descend. Standing Exercises row Equipment Used L2 TB Reps/Minutes 10x5 Comments verbal and tactile cues for rhomboid engagement and scap movement trunk SB ro right Standing Exercise Name overhead reach, and right SB Reps/Minutes 2x30 Other Exercises bird dog Side bilateral Reps/Minutes 5x5 ea Comments gave written option for standing Manual Therapy Treatment Consent Patient gave verbal consent for manual Yes treatment Soft Tissue Mobilization L hip Body Location glut med, piriformis Mobilization Type Rolling,Sustained Pressure Self-Care/Home Management Treatment Education Patient Education Home Exercise Program,Pain Management,Posture Other Education postural correction education using mirror with standing and walking, cues for inc arm swing right, neutral spine as able use of tennis ball for self massage. PT-OP-R Modalities Start: 09/30/23 16:22 Freq: Status: Active Protocol: Document 10/31/23 16:20 [facility] (Rec: 10/31/23 16:30 [facility] [id number]) Hot Pack/Cold Pack Treatment moist heat Location left glut med and piriformis Patient Position Sidelying PT-OP-T Assessment and Plan Start: 09/30/23 16:22 Freq: Status: Active Protocol: Document 10/31/23 16:20 [facility] (Rec: 10/31/23 16:29 [facility] [id number]) Physical Therapy Assessment Goals Four Impairment LEFS-lower extremity functional scale score 58% Short Term Goal (STG) Improve LEFS to at least 68% as measure of improved function and quality of life STG Duration 11/15/23 Supervisor Melt House Goal (LTG) Improve LEFS to at least 80% as measure of improved function and quality of life LTG Duration 01/01/24 Three Impairment Oswestry disability index score 42% Short Term Goal (STG) Decrease Oswestry to no greater than 30% STG Duration 11/15/23 Fpc Goal (LTG) Decrease Oswestry to no greater than 20% LTG Duration 01/01/24 Two Impairment Impairments in strength, flexibility, and posture Short Term Goal (STG) Patient to be instructed in HEP for purposes of strength, flexibility, and postural correction STG Duration 11/15/23 [facility] Goal (LTG) Patient to be independent and compliant with HEP and demonstrate improved postural awareness and ability to self correct without cues LTG Duration 01/01/24 One Impairment pain lumbar spine, SI with radicular symptoms left LE Short Term Goal (STG) Decrease pain by at least 50% with all ususal activities STG Duration 11/15/23 [facility]pc Goal (LTG) Decrease pain by at least 75% with all usual activities. LTG Duration 01/01/24 Assessment Summary Assessment Patient continues to improve with flexiblity and strength. Use of mirror helpful for patient, relief of pain symptoms with right sidebending. Physical Therapy Plan Frequency and Duration Frequency of Treatment 2x/Week Duration of treatment (weeks) 8 Plan of Care Start Date 10/01/23 Plan of Care End Date 12/01/23 Therapeutic Interventions Therapeutic Interventions Gait Training,Home Exercise Program,Manual Therapy, Neuromuscular Re-education, Patient/Caregiver Education, Self-Care/Home Management,Soft Tissue Mobilization,Taping, Therapeutic Activities, Therapeutic Exercises Modalities Cold Pack/Ice Massage,Electric Stimulation,Hot Packs, Infrared Therapy,Iontophoresis ,Ultrasound Next Visit Focus/Plan Next Note Type Treatment Note Next Visit Plan Continue to progress ther ex for postural correction, flexibility through hips, core stab. Review HEP HO, consider reduction number of exercises.
--- NOTE | 2023-11-05 08:16 | PT.OTN ---
Current Diagnoses Other chronic pain (11/05/23) Pain in unspecified knee (11/05/23) Other spondylosis with radiculopathy, lumbar region (11/05/23) Low back pain, unspecified (11/05/23) Physical Therapy Treatment Note PT-OP-A Visit Information Start: 09/30/23 16:22 Freq: Status: Active Protocol: Document 11/05/23 07:34 SP (Rec: 11/05/23 08:19 SP [id number]) Out-Patient Physical Therapy Visit Information Visit Information Visit Type Treatment Note Visit Note 10/04 since eval Visit Start Time 07:34 Visit Stop Time 08:16 Visit Number 8 Number of GOLD LEAF ROLLER Visits 1 Evaluation Information Evaluation Date 10/01/23 PT-OP-B Current Condition Start: 09/30/23 16:22 Freq: Status: Active Protocol: Document 10/31/23 16:20 SAK (Rec: 10/31/23 16:29 SAK [id number]) Current Condition History of Current Condition Onset Date 3 years Current Complaints back pain, knee pain History of Current Condition Gradual onset back pain 3 years ago. Pain sharp at times, inc when stands up from sitting takes about 30 seconds for him to be comfortable. Pain starts often in left lower leg and runs all the way up to his back, numbness and occasional tingling. Left leg has occasionally given way, on stairs has to hold on very tightly. Right knee bothers him as well, especially on stairs; injured knee while riding motorized scooter and was pushing off with right leg to get up a hill and fell over in excrutiating pain 8-9 years ago. Right knee occasionally gives out. Never pursued any evaluation or treatment right knee. Now feels intensely going up and down stairs. Occasionally PMH: Levoscoliosis Pneumonia Reports diagnosed with scoliosis when he was 19 in the service, states 3 years painful. 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 PT-OP-G Mobility & Gait Start: 09/30/23 16:22 Freq: Status: Active Protocol: Document 10/01/23 08:13 SAK (Rec: 10/02/23 13:49 [facility] [id number]) OP Mobility Evaluation Bed Mobility Rolling cues for logroll Transfers Sit to Stand decreased weight bearing right Floor Transfers unable Functional Movements Squats decreased weight bearing right OP Gait Assessment Gait Gait Assistance Required: Independent Assistive Devices Assistive Device None Gait Deviations General Gait Pattern Antalgic,Decreased Stride Length,Decreased Feet Clearance,Flexed Trunk Factors Limiting Gait Function Factors Limiting Gait Function Decreased Strength,Pain Stair Climbing Evaluation Evaluation Level of Assist On Stairs Independent Devices Stair Climbing Assistive Devices Left Railing,Right Railing Technique/Endurance Stair Climbing Technique Step Over Step PT-OP-H Neuro Start: 09/30/23 16:22 Freq: Status: Active Protocol: Document 10/01/23 08:13 SAK (Rec: 10/02/23 13:49 [facility] [id number]) Sensation Evaluation Gross Sensation Gross Sensation WNL PT-OP-J Posture/Palpation/Skin Start: 09/30/23 16:22 Freq: Status: Active Protocol: Document 10/01/23 08:13 SAK (Rec: 10/01/23 09:11 [facility] [id number]) Posture Evaluation Position Standing Head/C-Spine Posture Forward Head T-Spine Posture Increased Kyphosis L-Spine Posture Fixed Scoliosis on (L),Fixed Scoliosis on (R),Shifted Left Shoulder Posture (L) Rounded,(R) Rounded Weight Distribution Weight Shifted Left Hip Posture (L) Externally Rotated,(R) Externally Rotated Knee Posture (R) Genu Valgus Palpation Assessment Location left lumbar Palpation Findings Soft Tissue Tightness, Tenderness Palpation Details paraspinals, QL PT-OP-K Range of Motion Start: 09/30/23 16:22 Freq: Status: Active Protocol: Document 10/01/23 08:13 SAK (Rec: 10/02/23 13:49 [facility] [id number]) Lumbar Spine Range of Motion Lumbar Spine Active Testing Position Standing Flexion 40 Extension 10 Rotation Left 30 Rotation Right 30 Lateral Flexion Left 25 Lateral Flexion Right 20 ROM Limitations Soft Tissue Tightness Hip Goniometric Range of Motion Hip carloz Testing Position Supine Flexion w/Knee Flexed 100 Straight Leg Raise 50 Extension 0 Abduction 20 Internal Rotation 10 External Rotation 45 Hip ROM Limitations Hip ROM Limitations Soft Tissue Tightness,Pain PT-OP-L Special Tests Start: 09/30/23 16:22 Freq: Status: Active Protocol: Document 10/01/23 08:13 SAK (Rec: 10/02/23 13:49 SAK [id number]) Special Tests Lumbar Spine Special Tests Straight Leg Raise Test Results - Slump Test Results + inc pain Compression Test Results + inc pain Knee Special Tests Varus- 0 Degrees Test Results - Valgus- 0 Degrees Test Results - Mcgregor Chondromalacia Test Results - Anterior Draw Test Results - Neural Special Tests- Lower Body Sciatic Nerve Tension Test Results + L PT-OP-M Strength Start: 09/30/23 16:22 Freq: Status: Active Protocol: Document 10/01/23 08:13 SAK (Rec: 10/02/23 13:49 SAK [id number]) Trunk Strength Trunk Manual Muscle Testing Flexion 3+ Fair+ Extension 3- Fair- Core Stabilization poor Hip Strength Hip Manual Muscle Testing Left Flexion (L2) 4- Good- Extension (S1) 3- Fair- Abduction 3+ Fair+ External Rotation 4- Good- Internal Rotation 4- Good- Right Flexion (L2) 4 Good Extension (S1) 3- Fair- Abduction 3+ Fair+ External Rotation 3+ Fair+ Internal Rotation 4- Good- Knee Strength Knee Manual Muscle Testing Right Flexion (S2) 4 Good Extension (L3) 4 Good Left Flexion (S2) 4+ Good+ Extension (L3) 4+ Good+ Ankle/Foot Strength Ankle and Foot Manual Muscle Testing carloz Dorsiflexion (L4) 4+ Good+ Plantarflexion (S1) 4+ Good+ PT-OP-Q Treatments Start: 09/30/23 16:22 Freq: Status: Active Protocol: Document 11/05/23 07:34 SP (Rec: 11/05/23 08:19 SP [id number]) Cardio Equipment Recumbent Stepper (Sci-Fit) Duration (Minutes) 8 Resistance 2.3 Seat Position 12 Other cues for neutral LE alignment- 1.12 miles Therapeutic Exercises Supine Exercises bridge Supine Exercise Name segmental bridge Resistance AROM Reps/Minutes 5 SH x10 Comments ed TA, controlled segmental roll lift/lower-good response Sidelying Exercises hip ab Sidelying Exercise Name reviewed HEP Resistance kick stand top arm front on table- trunk alignment on side Reps/Minutes 10x Comments cues for core activation, DF, TKE lift/lower Standing Exercises row Side bilateral Resistance L2>[address] [place] TB Reps/Minutes 10x5 Comments cued for CS retraction neutral , scap retraction but level, elongation spine goalpost arms Standing Exercise Name Ys off wall added to HEP /c HO Side bilateral Resistance AROM Equipment Used body close facing wall (belly almost touching) Reps/Minutes 8 x3 SH Comments cued no LB arch- improved postural alignment/less LS ext Other Exercises bird dog Side bilateral Reps/Minutes 8x5 ea Comments gave written option for standing quadruped child's pose /c SB Other Exercise Name reviewed self Side bilateral Reps/Minutes 30 x2 Comments good form PT-OP-R Modalities Start: 09/30/23 16:22 Freq: Status: Active Protocol: Document 10/31/23 16:20 SAK (Rec: 10/31/23 16:30 SAK [id number]) Hot Pack/Cold Pack Treatment moist heat Location left glut med and piriformis Patient Position Sidelying PT-OP-T Assessment and Plan Start: 09/30/23 16:22 Freq: Status: Active Protocol: Document 11/05/23 07:34 SP (Rec: 11/05/23 08:19 SP [id number]) Physical Therapy Assessment Goals Four Impairment LEFS-lower extremity functional scale score 58% Short Term Goal (STG) Improve LEFS to at least 68% as measure of improved function and quality of life STG Duration 11/15/23 Field Service Representative Goal (LTG) Improve LEFS to at least 80% as measure of improved function and quality of life LTG Duration 01/01/24 Three Impairment Oswestry disability index score 42% Short Term Goal (STG) Decrease Oswestry to no greater than 30% STG Duration 11/15/23 [facility] Goal (LTG) Decrease Oswestry to no greater than 20% LTG Duration 01/01/24 Two Impairment Impairments in strength, flexibility, and posture Short Term Goal (STG) Patient to be instructed in HEP for purposes of strength, flexibility, and postural correction STG Duration 11/15/23 [facility] Goal (LTG) Patient to be independent and compliant with HEP and demonstrate improved postural awareness and ability to self correct without cues LTG Duration 01/01/24 One Impairment pain lumbar spine, SI with radicular symptoms left LE Short Term Goal (STG) Decrease pain by at least 50% with all ususal activities STG Duration 11/15/23 Field Service Representative Goal (LTG) Decrease pain by at least 75% with all usual activities. LTG Duration 01/01/24 Assessment Summary Assessment Pt responded well ther ex, focused more on active stretching into postural ext during bird dog, child's pose /c SB, changed to segmental bridging for core fac and LS mobility and resisted rows. cued for CS retraction neutral , scap retraction but level, elongation spine to allow improved postural corrections. Physical Therapy Plan Frequency and Duration Frequency of Treatment 2x/Week Duration of treatment (weeks) 8 Plan of Care Start Date 10/01/23 Plan of Care End Date 12/01/23 Therapeutic Interventions Therapeutic Interventions Gait Training,Home Exercise Program,Manual Therapy, Neuromuscular Re-education, Patient/Caregiver Education, Self-Care/Home Management,Soft Tissue Mobilization,Taping, Therapeutic Activities, Therapeutic Exercises Modalities Cold Pack/Ice Massage,Electric Stimulation,Hot Packs, Infrared Therapy,Iontophoresis ,Ultrasound Next Visit Focus/Plan Next Note Type Treatment Note Next Visit Plan Condense HEP. Check response to active postural ext activities last tx. Pt requested Add stairs, funcitonal ROM, lives in camper. Continue to progress ther ex for postural correction, flexibility through hips, core stab. Review HEP PETER
--- NOTE | 2023-11-08 11:19 | PT.OTN ---
Current Diagnoses Other chronic pain (11/08/23) Pain in unspecified knee (11/08/23) Other spondylosis with radiculopathy, lumbar region (11/08/23) Low back pain, unspecified (11/08/23) Physical Therapy Treatment Note PT-OP-A Visit Information Start: 09/30/23 16:22 Freq: Status: Active Protocol: Document 11/08/23 10:32 SP (Rec: 11/08/23 11:19 SP [id number]) Out-Patient Physical Therapy Visit Information Visit Information Visit Type Treatment Note Visit Note 11/04 since eval Visit Start Time 10:32 Visit Stop Time 11:19 Visit Number 9 Number of EXPLOSIVES ENGINEER Visits 2 Evaluation Information Evaluation Date 10/01/23 PT-OP-B Current Condition Start: 09/30/23 16:22 Freq: Status: Active Protocol: Document 10/31/23 16:20 SAK (Rec: 10/31/23 16:29 SAK [id number]) Current Condition History of Current Condition Onset Date 3 years Current Complaints back pain, knee pain History of Current Condition Gradual onset back pain 3 years ago. Pain sharp at times, inc when stands up from sitting takes about 30 seconds for him to be comfortable. Pain starts often in left lower leg and runs all the way up to his back, numbness and occasional tingling. Left leg has occasionally given way, on stairs has to hold on very tightly. Right knee bothers him as well, especially on stairs; injured knee while riding motorized scooter and was pushing off with right leg to get up a hill and fell over in excrutiating pain 8-9 years ago. Right knee occasionally gives out. Never pursued any evaluation or treatment right knee. Now feels intensely going up and down stairs. Occasionally PMH: Levoscoliosis Pneumonia Reports diagnosed with scoliosis when he was 19 in the service, states 3 years painful. 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 He noticed missed his HEP yesterday and noted later in day was sore so performed befored bed and felt good when woke up this am. He is getting tightness over anterior L thigh when out walking longer distances PT-OP-G Mobility & Gait Start: 09/30/23 16:22 Freq: Status: Active Protocol: Document 10/01/23 08:13 [facility] (Rec: 10/02/23 13:49 [facility] [id number]) OP Mobility Evaluation Bed Mobility Rolling cues for logroll Transfers Sit to Stand decreased weight bearing right Floor Transfers unable Functional Movements Squats decreased weight bearing right OP Gait Assessment Gait Gait Assistance Required: Independent Assistive Devices Assistive Device None Gait Deviations General Gait Pattern Antalgic,Decreased Stride Length,Decreased Feet Clearance,Flexed Trunk Factors Limiting Gait Function Factors Limiting Gait Function Decreased Strength,Pain Stair Climbing Evaluation Evaluation Level of Assist On Stairs Independent Devices Stair Climbing Assistive Devices Left Railing,Right Railing Technique/Endurance Stair Climbing Technique Step Over Step PT-OP-H Neuro Start: 09/30/23 16:22 Freq: Status: Active Protocol: Document 10/01/23 08:13 SAK (Rec: 10/02/23 13:49 [facility] [id number]) Sensation Evaluation Gross Sensation Gross Sensation WNL PT-OP-J Posture/Palpation/Skin Start: 09/30/23 16:22 Freq: Status: Active Protocol: Document 10/01/23 08:13 SAK (Rec: 10/01/23 09:11 [facility] [id number]) Posture Evaluation Position Standing Head/C-Spine Posture Forward Head T-Spine Posture Increased Kyphosis L-Spine Posture Fixed Scoliosis on (L),Fixed Scoliosis on (R),Shifted Left Shoulder Posture (L) Rounded,(R) Rounded Weight Distribution Weight Shifted Left Hip Posture (L) Externally Rotated,(R) Externally Rotated Knee Posture (R) Genu Valgus Palpation Assessment Location left lumbar Palpation Findings Soft Tissue Tightness, Tenderness Palpation Details paraspinals, QL PT-OP-K Range of Motion Start: 09/30/23 16:22 Freq: Status: Active Protocol: Document 10/01/23 08:13 SAK (Rec: 10/02/23 13:49 [facility] [id number]) Lumbar Spine Range of Motion Lumbar Spine Active Testing Position Standing Flexion 40 Extension 10 Rotation Left 30 Rotation Right 30 Lateral Flexion Left 25 Lateral Flexion Right 20 ROM Limitations Soft Tissue Tightness Hip Goniometric Range of Motion Hip torin Testing Position Supine Flexion w/Knee Flexed 100 Straight Leg Raise 50 Extension 0 Abduction 20 Internal Rotation 10 External Rotation 45 Hip ROM Limitations Hip ROM Limitations Soft Tissue Tightness,Pain PT-OP-L Special Tests Start: 09/30/23 16:22 Freq: Status: Active Protocol: Document 10/01/23 08:13 [facility] (Rec: 10/02/23 13:49 [facility] [id number]) Special Tests Lumbar Spine Special Tests Straight Leg Raise Test Results - Slump Test Results + inc pain Compression Test Results + inc pain Knee Special Tests Varus- 0 Degrees Test Results - Valgus- 0 Degrees Test Results - Mcgregor Chondromalacia Test Results - Anterior Draw Test Results - Neural Special Tests- Lower Body Sciatic Nerve Tension Test Results + L PT-OP-M Strength Start: 09/30/23 16:22 Freq: Status: Active Protocol: Document 10/01/23 08:13 [facility] (Rec: 10/02/23 13:49 [facility] [id number]) Trunk Strength Trunk Manual Muscle Testing Flexion 3+ Fair+ Extension 3- Fair- Core Stabilization poor Hip Strength Hip Manual Muscle Testing Left Flexion (L2) 4- Good- Extension (S1) 3- Fair- Abduction 3+ Fair+ External Rotation 4- Good- Internal Rotation 4- Good- Right Flexion (L2) 4 Good Extension (S1) 3- Fair- Abduction 3+ Fair+ External Rotation 3+ Fair+ Internal Rotation 4- Good- Knee Strength Knee Manual Muscle Testing Right Flexion (S2) 4 Good Extension (L3) 4 Good Left Flexion (S2) 4+ Good+ Extension (L3) 4+ Good+ Ankle/Foot Strength Ankle and Foot Manual Muscle Testing torin Dorsiflexion (L4) 4+ Good+ Plantarflexion (S1) 4+ Good+ PT-OP-Q Treatments Start: 09/30/23 16:22 Freq: Status: Active Protocol: Document 11/08/23 10:32 SP (Rec: 11/08/23 11:19 SP [id number]) Cardio Equipment Upper Body Ergometer (UBE) Duration (Minutes) 6 RPM 50 Height 2.5 Other 1 min f/b Therapeutic Exercises Supine Exercises marlon stretch Supine Exercise Name Doesn't have area home to perform Standing Exercises hip flexor stretch lunge position Standing Exercise Name initiated in PT- added to HEP PRN needed /c HO Side bilateral Equipment Used hands on wall (street sign/ tree out on walks)- tall posture Reps/Minutes 30 SH x2- good response Comments cued upright posture, back leg heel lift & wt shift into front leg Other Exercises 1/2 kneel hip flexor stretch Other Exercise Name trialed in PT as alternative to Marlon stretch Comments discomfort knees bird dog Other Exercise Name quadruped- alternate UE/ LE ext Side bilateral Reps/Minutes 8x5 ea Comments cued knee ext ft touch floor then lift if stable, improved stability &form quadruped child's pose /c SB Other Exercise Name reviewed self HEP: fwd and Torin SB Side bilateral Reps/Minutes 30 each position- tighter on L low back/lateral ribcage Comments good form, reports will hold longer off to R to give more time stretch on L Self-Care/Home Management Treatment Education Patient Education Home Exercise Program,Pain Management,Posture Other Education 20 min review mechanics of posture /c daily activities, including community aerobic walking, Postural corrections for more upright midline positioning for reduction back and hip recruitment. Improved understanding with use of Posture Pounds Image found online to show added pounds on spine via gravity. Education ask family/friends to assist him with recognizing forward posture so can help him be more conscious of self corrections midline. Added hip flexor stretch lunge position best vs 1/2 kneel ( discomfort R knee), no high surface home to perform Marlon Stretch. PT-OP-R Modalities Start: 09/30/23 16:22 Freq: Status: Active Protocol: Document 10/31/23 16:20 SAK (Rec: 10/31/23 16:30 SAK [id number]) Hot Pack/Cold Pack Treatment moist heat Location left glut med and piriformis Patient Position Sidelying PT-OP-T Assessment and Plan Start: 09/30/23 16:22 Freq: Status: Active Protocol: Document 11/08/23 10:32 SP (Rec: 11/08/23 11:19 SP [id number]) Physical Therapy Assessment Goals Four Impairment LEFS-lower extremity functional scale score 58% Short Term Goal (STG) Improve LEFS to at least 68% as measure of improved function and quality of life STG Duration 11/15/23 Retirement Goal (LTG) Improve LEFS to at least 80% as measure of improved function and quality of life LTG Duration 01/01/24 Three Impairment Oswestry disability index score 42% Short Term Goal (STG) Decrease Oswestry to no greater than 30% STG Duration 11/15/23 [employer] Machine Operator Goal (LTG) Decrease Oswestry to no greater than 20% LTG Duration 01/01/24 Two Impairment Impairments in strength, flexibility, and posture Short Term Goal (STG) Patient to be instructed in HEP for purposes of strength, flexibility, and postural correction STG Duration 11/15/23 [employer] Coiling Machine Operator Goal (LTG) Patient to be independent and compliant with HEP and demonstrate improved postural awareness and ability to self correct without cues LTG Duration 01/01/24 One Impairment pain lumbar spine, SI with radicular symptoms left LE Short Term Goal (STG) Decrease pain by at least 50% with all ususal activities STG Duration 11/15/23 [employer] Coiling Machine Operator Goal (LTG) Decrease pain by at least 75% with all usual activities. LTG Duration 01/01/24 Assessment Summary Assessment Extra time spent today on education on importance of postural alignment with active posterior chain strengthening and flexibility. Performed hip flexor stretch to incorporated with good feedback response can add during his walks for reduction L anterior thigh tightness and ability to increase distance/endurance. Pt improved stabiltiy during bird dog today with cues for knee extension touch ground and if stabille then lift to height can maintain balance, improved height with reps approx 4 from ground. Physical Therapy Plan Frequency and Duration Frequency of Treatment 2x/Week Duration of treatment (weeks) 8 Plan of Care Start Date 10/01/23 Plan of Care End Date 12/01/23 Therapeutic Interventions Therapeutic Interventions Gait Training,Home Exercise Program,Manual Therapy, Neuromuscular Re-education, Patient/Caregiver Education, Self-Care/Home Management,Soft Tissue Mobilization,Taping, Therapeutic Activities, Therapeutic Exercises Modalities Cold Pack/Ice Massage,Electric Stimulation,Hot Packs, Infrared Therapy,Iontophoresis ,Ultrasound Next Visit Focus/Plan Next Note Type Treatment Note Next Visit Plan PN/update POC in 2 tx or if pt feel ready to DC 11th visit. Condense HEP next appt, discussed bring all HOsm check form bird dog. Pt requested utilize stairs for strengthening, funcitonal ROM, lives in camper. Continue to progress ther ex for postural correction, flexibility through hips, core stab.
--- NOTE | 2023-11-15 11:18 | PT.OTN ---
Current Diagnoses Other chronic pain (11/15/23) Pain in unspecified knee (11/15/23) Other spondylosis with radiculopathy, lumbar region (11/15/23) Low back pain, unspecified (11/15/23) Physical Therapy Treatment Note PT-OP-A Visit Information Start: 09/30/23 16:22 Freq: Status: Active Protocol: Document 11/15/23 10:34 SP (Rec: 11/15/23 11:19 SP [id number]) Out-Patient Physical Therapy Visit Information Visit Information Visit Type Treatment Note Visit Note 12/04 since eval, PN next tx. Visit Start Time 10:34 Visit Stop Time 11:18 Visit Number 10 Number of PRODUCTION EDITOR Visits 3 Evaluation Information Evaluation Date 10/01/23 PT-OP-B Current Condition Start: 09/30/23 16:22 Freq: Status: Active Protocol: Document 10/31/23 16:20 SAK (Rec: 10/31/23 16:29 SAK [id number]) Current Condition History of Current Condition Onset Date 3 years Current Complaints back pain, knee pain History of Current Condition Gradual onset back pain 3 years ago. Pain sharp at times, inc when stands up from sitting takes about 30 seconds for him to be comfortable. Pain starts often in left lower leg and runs all the way up to his back, numbness and occasional tingling. Left leg has occasionally given way, on stairs has to hold on very tightly. Right knee bothers him as well, especially on stairs; injured knee while riding motorized scooter and was pushing off with right leg to get up a hill and fell over in excrutiating pain 8-9 years ago. Right knee occasionally gives out. Never pursued any evaluation or treatment right knee. Now feels intensely going up and down stairs. Occasionally PMH: Levoscoliosis Pneumonia Reports diagnosed with scoliosis when he was 19 in the service, states 3 years painful. 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 PT-OP-G Mobility & Gait Start: 09/30/23 16:22 Freq: Status: Active Protocol: Document 10/01/23 08:13 SAK (Rec: 10/02/23 13:49 [facility] [id number]) OP Mobility Evaluation Bed Mobility Rolling cues for logroll Transfers Sit to Stand decreased weight bearing right Floor Transfers unable Functional Movements Squats decreased weight bearing right OP Gait Assessment Gait Gait Assistance Required: Independent Assistive Devices Assistive Device None Gait Deviations General Gait Pattern Antalgic,Decreased Stride Length,Decreased Feet Clearance,Flexed Trunk Factors Limiting Gait Function Factors Limiting Gait Function Decreased Strength,Pain Stair Climbing Evaluation Evaluation Level of Assist On Stairs Independent Devices Stair Climbing Assistive Devices Left Railing,Right Railing Technique/Endurance Stair Climbing Technique Step Over Step PT-OP-H Neuro Start: 09/30/23 16:22 Freq: Status: Active Protocol: Document 10/01/23 08:13 SAK (Rec: 10/02/23 13:49 [facility] [id number]) Sensation Evaluation Gross Sensation Gross Sensation WNL PT-OP-J Posture/Palpation/Skin Start: 09/30/23 16:22 Freq: Status: Active Protocol: Document 10/01/23 08:13 SAK (Rec: 10/01/23 09:11 [facility] [id number]) Posture Evaluation Position Standing Head/C-Spine Posture Forward Head T-Spine Posture Increased Kyphosis L-Spine Posture Fixed Scoliosis on (L),Fixed Scoliosis on (R),Shifted Left Shoulder Posture (L) Rounded,(R) Rounded Weight Distribution Weight Shifted Left Hip Posture (L) Externally Rotated,(R) Externally Rotated Knee Posture (R) Genu Valgus Palpation Assessment Location left lumbar Palpation Findings Soft Tissue Tightness, Tenderness Palpation Details paraspinals, QL PT-OP-K Range of Motion Start: 09/30/23 16:22 Freq: Status: Active Protocol: Document 10/01/23 08:13 SAK (Rec: 10/02/23 13:49 [facility] [id number]) Lumbar Spine Range of Motion Lumbar Spine Active Testing Position Standing Flexion 40 Extension 10 Rotation Left 30 Rotation Right 30 Lateral Flexion Left 25 Lateral Flexion Right 20 ROM Limitations Soft Tissue Tightness Hip Goniometric Range of Motion Hip carloz Testing Position Supine Flexion w/Knee Flexed 100 Straight Leg Raise 50 Extension 0 Abduction 20 Internal Rotation 10 External Rotation 45 Hip ROM Limitations Hip ROM Limitations Soft Tissue Tightness,Pain PT-OP-L Special Tests Start: 09/30/23 16:22 Freq: Status: Active Protocol: Document 10/01/23 08:13 SAK (Rec: 10/02/23 13:49 SAK [id number]) Special Tests Lumbar Spine Special Tests Straight Leg Raise Test Results - Slump Test Results + inc pain Compression Test Results + inc pain Knee Special Tests Varus- 0 Degrees Test Results - Valgus- 0 Degrees Test Results - Mcgregor Chondromalacia Test Results - Anterior Draw Test Results - Neural Special Tests- Lower Body Sciatic Nerve Tension Test Results + L PT-OP-M Strength Start: 09/30/23 16:22 Freq: Status: Active Protocol: Document 10/01/23 08:13 SAK (Rec: 10/02/23 13:49 SAK [id number]) Trunk Strength Trunk Manual Muscle Testing Flexion 3+ Fair+ Extension 3- Fair- Core Stabilization poor Hip Strength Hip Manual Muscle Testing Left Flexion (L2) 4- Good- Extension (S1) 3- Fair- Abduction 3+ Fair+ External Rotation 4- Good- Internal Rotation 4- Good- Right Flexion (L2) 4 Good Extension (S1) 3- Fair- Abduction 3+ Fair+ External Rotation 3+ Fair+ Internal Rotation 4- Good- Knee Strength Knee Manual Muscle Testing Right Flexion (S2) 4 Good Extension (L3) 4 Good Left Flexion (S2) 4+ Good+ Extension (L3) 4+ Good+ Ankle/Foot Strength Ankle and Foot Manual Muscle Testing carloz Dorsiflexion (L4) 4+ Good+ Plantarflexion (S1) 4+ Good+ PT-OP-Q Treatments Start: 09/30/23 16:22 Freq: Status: Active Protocol: Document 11/15/23 10:34 SP (Rec: 11/15/23 11:19 SP [id number]) Cardio Equipment Recumbent Stepper (Sci-Fit) Duration (Minutes) 8 Resistance lvl 2.3> 3.5, 45-50 RPMs Seat Position 12 Other cues for neutral LE alignment- 1.15 miles Therapeutic Exercises Standing Exercises paloff press Standing Exercise Name trailed in PT for progress postural and core strengthening Resistance Tb #3- press out chest/navel Equipment Used standing on foam, floor Reps/Minutes x12 each side- reported discomfort/slight tingling lateral L lower leg duri Comments cued tall posture, maintain posture /c press out- good full body activity hip flexor stretch lunge position Standing Exercise Name reviewed HEP Side bilateral Equipment Used hands on TM rail (street sign/ tree out on walks) Reps/Minutes 30-60 SH x2- good response Comments cued upright posture, back leg heel lift & TKE [place], wt shift into front leg row Side bilateral Resistance 3 [place] green TB Equipment Used added standing on foam today Reps/Minutes 15x5 Comments cued no UT, improved elongation spine/rhomboid and LT fac, noted core engag goalpost arms Standing Exercise Name Ys off wall- reviewed Side bilateral Resistance AROM Equipment Used body close facing wall (belly almost touching) Reps/Minutes 8 x3 SH Comments cued no LB arch- improved postural alignment/less LS ext Gait Training Gait Activity stairs Description step over step sideway leading L Distance/Duration rail support Comments R knee pain tho eccentric PT-OP-R Modalities Start: 09/30/23 16:22 Freq: Status: Active Protocol: Document 10/31/23 16:20 SAK (Rec: 10/31/23 16:30 SAK [id number]) Hot Pack/Cold Pack Treatment moist heat Location left glut med and piriformis Patient Position Sidelying PT-OP-T Assessment and Plan Start: 09/30/23 16:22 Freq: Status: Active Protocol: Document 11/15/23 10:34 SP (Rec: 11/15/23 11:19 SP [id number]) Physical Therapy Assessment Goals Four Impairment LEFS-lower extremity functional scale score 58% Short Term Goal (STG) Improve LEFS to at least 68% as measure of improved function and quality of life STG Duration 11/15/23 [facility] Goal (LTG) Improve LEFS to at least 80% as measure of improved function and quality of life LTG Duration 01/01/24 Three Impairment Oswestry disability index score 42% Short Term Goal (STG) Decrease Oswestry to no greater than 30% STG Duration 11/15/23 [facility] Goal (LTG) Decrease Oswestry to no greater than 20% LTG Duration 01/01/24 Two Impairment Impairments in strength, flexibility, and posture Short Term Goal (STG) Patient to be instructed in HEP for purposes of strength, flexibility, and postural correction STG Duration 11/15/23 [facility] Goal (LTG) Patient to be independent and compliant with HEP and demonstrate improved postural awareness and ability to self correct without cues LTG Duration 01/01/24 One Impairment pain lumbar spine, SI with radicular symptoms left LE Short Term Goal (STG) Decrease pain by at least 50% with all ususal activities STG Duration 11/15/23 [employer] Goal (LTG) Decrease pain by at least 75% with all usual activities. LTG Duration 01/01/24 Assessment Summary Assessment Pt tolerated tx well. Tx focused on resisted HEP while incorporating uneven surface stance with good feedback found more core and increased good effort of continuous postural corrections to support spinal alignment to promote improved endurance upright posture and pain reduction for community trail walks. Trialed resisted paloff press for oblique recruitment to support strength trunk spinal stability with reports of adverse affect in L lateral lower leg of tingling. Pt continues to find pain reduction with HEP stretching daily. He still has complaints of R knee weakness and pain with stair mgt, trialed today and with requirement UE support and limited active R knee eccentric flexion, improves slightly with side stepping L leading RLE and limited reps lateral step ups due to pain. Pt would benefit from R LE strengthening and flexibility. Pt would like to try working on his own for approx 4 weeks after next appt and see if needs to progress appts in PT or truly ready to DC. PT will assess this next tx. Physical Therapy Plan Frequency and Duration Frequency of Treatment 2x/Week Duration of treatment (weeks) 8 Plan of Care Start Date 10/01/23 Plan of Care End Date 12/01/23 Therapeutic Interventions Therapeutic Interventions Gait Training,Home Exercise Program,Manual Therapy, Neuromuscular Re-education, Patient/Caregiver Education, Self-Care/Home Management,Soft Tissue Mobilization,Taping, Therapeutic Activities, Therapeutic Exercises Modalities Cold Pack/Ice Massage,Electric Stimulation,Hot Packs, Infrared Therapy,Iontophoresis ,Ultrasound Next Visit Focus/Plan Next Note Type Treatment Note Next Visit Plan PN: DC vs update POC next tx ( 11th visit), pt requests continue POC see how do own for approx 30 days before DC. Condense HEP next appt, discussed bring all HOs condense. Pt requests R knee strengthening to support stair mgt, lives in [facility]. Continue to progress ther ex for postural correction, flexibility through hips, core stab.
--- NOTE | 2023-12-31 09:04 | PT.OTN ---
Current Diagnoses Other chronic pain (12/31/23) Pain in unspecified knee (12/31/23) Other spondylosis with radiculopathy, lumbar region (12/31/23) Low back pain, unspecified (12/31/23) Physical Therapy Treatment Note PT-OP-A Visit Information Start: 09/30/23 16:22 Freq: Status: Active Protocol: Document 12/31/23 08:05 [facility] (Rec: 12/31/23 09:04 [facility] [id number]) Out-Patient Physical Therapy Visit Information Visit Information Visit Type Re-Evaluation Visit Start Time 08:16 Visit Stop Time 08:54 Visit Number 11 Number of MOLECULAR PATHOLOGIST Visits 0 PT-OP-B Current Condition Start: 09/30/23 16:22 Freq: Status: Active Protocol: Document 10/31/23 16:20 SAK (Rec: 10/31/23 16:29 [facility] [id number]) Current Condition History of Current Condition Onset Date 3 years Current Complaints back pain, knee pain History of Current Condition Gradual onset back pain 3 years ago. Pain sharp at times, inc when stands up from sitting takes about 30 seconds for him to be comfortable. Pain starts often in left lower leg and runs all the way up to his back, numbness and occasional tingling. Left leg has occasionally given way, on stairs has to hold on very tightly. Right knee bothers him as well, especially on stairs; injured knee while riding motorized scooter and was pushing off with right leg to get up a hill and fell over in excrutiating pain 8-9 years ago. Right knee occasionally gives out. Never pursued any evaluation or treatment right knee. Now feels intensely going up and down stairs. Occasionally PMH: Levoscoliosis Pneumonia Reports diagnosed with scoliosis when he was 19 in the service, states 3 years painful. 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 Feels much arely, PT helpful. PT-OP-G Mobility & Gait Start: 09/30/23 16:22 Freq: Status: Active Protocol: Document 10/01/23 08:13 [facility] (Rec: 10/02/23 13:49 [facility] [id number]) OP Mobility Evaluation Bed Mobility Rolling cues for logroll Transfers Sit to Stand decreased weight bearing right Floor Transfers unable Functional Movements Squats decreased weight bearing right OP Gait Assessment Gait Gait Assistance Required: Independent Assistive Devices Assistive Device None Gait Deviations General Gait Pattern Antalgic,Decreased Stride Length,Decreased Feet Clearance,Flexed Trunk Factors Limiting Gait Function Factors Limiting Gait Function Decreased Strength,Pain Stair Climbing Evaluation Evaluation Level of Assist On Stairs Independent Devices Stair Climbing Assistive Devices Left Railing,Right Railing Technique/Endurance Stair Climbing Technique Step Over Step PT-OP-H Neuro Start: 09/30/23 16:22 Freq: Status: Active Protocol: Document 10/01/23 08:13 [facility] (Rec: 10/02/23 13:49 [facility] [id number]) Sensation Evaluation Gross Sensation Gross Sensation WNL PT-OP-J Posture/Palpation/Skin Start: 09/30/23 16:22 Freq: Status: Active Protocol: Document 10/01/23 08:13 [facility] (Rec: 10/01/23 09:11 [facility] [id number]) Posture Evaluation Position Standing Head/C-Spine Posture Forward Head T-Spine Posture Increased Kyphosis L-Spine Posture Fixed Scoliosis on (L),Fixed Scoliosis on (R),Shifted Left Shoulder Posture (L) Rounded,(R) Rounded Weight Distribution Weight Shifted Left Hip Posture (L) Externally Rotated,(R) Externally Rotated Knee Posture (R) Genu Valgus Palpation Assessment Location left lumbar Palpation Findings Soft Tissue Tightness, Tenderness Palpation Details paraspinals, QL PT-OP-K Range of Motion Start: 09/30/23 16:22 Freq: Status: Active Protocol: Document 10/01/23 08:13 [facility] (Rec: 10/02/23 13:49 [facility] [id number]) Lumbar Spine Range of Motion Lumbar Spine Active Testing Position Standing Flexion 40 Extension 10 Rotation Left 30 Rotation Right 30 Lateral Flexion Left 25 Lateral Flexion Right 20 ROM Limitations Soft Tissue Tightness Hip Goniometric Range of Motion Hip carloz Testing Position Supine Flexion w/Knee Flexed 100 Straight Leg Raise 50 Extension 0 Abduction 20 Internal Rotation 10 External Rotation 45 Hip ROM Limitations Hip ROM Limitations Soft Tissue Tightness,Pain PT-OP-L Special Tests Start: 09/30/23 16:22 Freq: Status: Active Protocol: Document 10/01/23 08:13 [facility] (Rec: 10/02/23 13:49 [facility] [id number]) Special Tests Lumbar Spine Special Tests Straight Leg Raise Test Results - Slump Test Results + inc pain Compression Test Results + inc pain Knee Special Tests Varus- 0 Degrees Test Results - Valgus- 0 Degrees Test Results - Mcgregor Chondromalacia Test Results - Anterior Draw Test Results - Neural Special Tests- Lower Body Sciatic Nerve Tension Test Results + L PT-OP-M Strength Start: 09/30/23 16:22 Freq: Status: Active Protocol: Document 10/01/23 08:13 [facility] (Rec: 10/02/23 13:49 [facility] [id number]) Trunk Strength Trunk Manual Muscle Testing Flexion 3+ Fair+ Extension 3- Fair- Core Stabilization poor Hip Strength Hip Manual Muscle Testing Left Flexion (L2) 4- Good- Extension (S1) 3- Fair- Abduction 3+ Fair+ External Rotation 4- Good- Internal Rotation 4- Good- Right Flexion (L2) 4 Good Extension (S1) 3- Fair- Abduction 3+ Fair+ External Rotation 3+ Fair+ Internal Rotation 4- Good- Knee Strength Knee Manual Muscle Testing Right Flexion (S2) 4 Good Extension (L3) 4 Good Left Flexion (S2) 4+ Good+ Extension (L3) 4+ Good+ Ankle/Foot Strength Ankle and Foot Manual Muscle Testing carloz Dorsiflexion (L4) 4+ Good+ Plantarflexion (S1) 4+ Good+ PT-OP-Q Treatments Start: 09/30/23 16:22 Freq: Status: Active Protocol: Document 12/31/23 08:05 [facility] (Rec: 12/31/23 09:04 [facility] [id number]) Therapeutic Exercises Supine Exercises bridge Supine Exercise Name progressed to single leg Resistance AROM Reps/Minutes 5 SH x10 Comments ed TA, controlled segmental roll lift/lower-good response Sidelying Exercises hip ab Sidelying Exercise Name reviewed HEP Resistance kick stand top arm front on table- trunk alignment on side Reps/Minutes 10x Comments cues for core activation, DF, TKE lift/lower Standing Exercises hip flexor stretch lunge position Standing Exercise Name reviewed HEP Side bilateral Equipment Used hands on TM rail (street sign/ tree out on walks) Reps/Minutes 30-60 SH x2- good response Comments cued upright posture Self-Care/Home Management Treatment Education Patient Education Home Exercise Program,Pain Management,Posture Other Education issued updated HEP PT-OP-R Modalities Start: 09/30/23 16:22 Freq: Status: Active Protocol: Document 10/31/23 16:20 [facility] (Rec: 10/31/23 16:30 [facility] [id number]) Hot Pack/Cold Pack Treatment moist heat Location left glut med and piriformis Patient Position Sidelying PT-OP-T Assessment and Plan Start: 09/30/23 16:22 Freq: Status: Active Protocol: Document 12/31/23 08:05 [facility] (Rec: 12/31/23 09:04 [facility] [id number]) Physical Therapy Assessment Goals Four Impairment LEFS-lower extremity functional scale score 58% Short Term Goal (STG) Improve LEFS to at least 68% as measure of improved function and quality of life STG Duration 11/15/23 [employer] Goal (LTG) Improve LEFS to at least 80% as measure of improved function and quality of life LTG Duration 01/01/24 Three Impairment Oswestry disability index score 42% Short Term Goal (STG) Decrease Oswestry to no greater than 30% STG Duration 11/15/23 [facility] Goal (LTG) Decrease Oswestry to no greater than 20% LTG Duration 01/01/24 Two Impairment Impairments in strength, flexibility, and posture Short Term Goal (STG) Patient to be instructed in HEP for purposes of strength, flexibility, and postural correction 12/31/23: goal met STG Duration 11/15/23 [employer] Goal (LTG) Patient to be independent and compliant with HEP and demonstrate improved postural awareness and ability to self correct without cues 12/31/23: goal met LTG Duration 01/01/24 One Impairment pain lumbar spine, SI with radicular symptoms left LE Short Term Goal (STG) Decrease pain by at least 50% with all ususal activities 12/31/23: goal met STG Duration 11/15/23 [employer] Goal (LTG) Decrease pain by at least 75% with all usual activities. 12/31/23 LTG Duration 01/01/24 Progress Towards Goals Progress Towards Goals Goals Met Assessment Summary Assessment Patient independent and compliant with HEP. HEP progressed with patient demonstrating good understanding. Goals met. REady for discharge from PT. Physical Therapy Plan Frequency and Duration Frequency of Treatment 2x/Week Duration of treatment (weeks) 8 Plan of Care Start Date 10/01/23 Plan of Care End Date 12/01/23 Therapeutic Interventions Therapeutic Interventions Gait Training,Home Exercise Program,Manual Therapy, Neuromuscular Re-education, Patient/Caregiver Education, Self-Care/Home Management,Soft Tissue Mobilization,Taping, Therapeutic Activities, Therapeutic Exercises Modalities Cold Pack/Ice Massage,Electric Stimulation,Hot Packs, Infrared Therapy,Iontophoresis ,Ultrasound Discharge Physical Therapy Discharge Reasons Goals Met
== END 2024-01-06 14:42 | disposition home or self-care (01) ==
LOC: PHYS 08:15
PROVIDERS: Family Provider Family Medicine; PCP Family Medicine; Referring Provider Family Medicine; Visit Provider Family Medicine
DX: M54.50 Low back pain, unspecified (principal); G89.29 Other chronic pain; M47.26 Other spondylosis with radiculopathy, lumbar region; M25.569 Pain in unspecified knee
CPT/HCPCS: 97110; 97140; 97162; 97535

== ENCOUNTER 2024-01-25 21:56 | Emergency (ER) | payer MEDICARE, SELFPAY ==
[2024-01-25 22:05] VITALS: BP 142/64; PULSE 70; RESP 16; TEMP 37.1; O2SAT 96; BMI 23.6
[2024-01-25 23:32] VITALS: BP 134/63; PULSE 66; RESP 16; O2SAT 96
--- NOTE | 2024-01-25 23:34 | PC.NURSE ---
Pt reports rash develpment on chest, neck, and bilateral ears. States itchy and dry. Denies known exposure for soap/detergent. Started salpalmetto over counter for prostate enargment. Also reports he was working with putty- hazard to skin reported on bottle. No rash or redness on hands that came in direct contact. denies pain. No recent illness. No change in appetite. no joint pains, fever, chills.
--- NOTE | 2024-01-26 00:02 | ED.SKABFB ---
HPI - Skin/Abscess/Foreign Bdy General Chief complaint: Skin/Abscess/Foreign Body Stated complaint: swelling in ears, rash on chest, reaction to chemi Time Seen by Provider: 01/25/24 23:47 Source: patient Mode of arrival: Ambulatory History of Present Illness HPI narrative: Patient is a 78-year-old male who is here for evaluation of a rash on his chest, itching to his chest, a rash and itching to both of his cheeks and under his chin and both of his ears. 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 He states he did not think that he got it on anywhere but his hands. He was not having any symptoms to his hands. No problems breathing or swallowing. No other new exposures. No fevers. Has not tried anything for symptoms prior to arrival. Related Data Home Medications Medication Instructions Recorded Confirmed cetirizine 10 mg capsule (All Day mg PO PRN allergy symptoms 04/07/20 12/26/23 Allergy (cetirizine)) Previous Rx's Medication Instructions Recorded sildenafil 100 mg tablet (Viagra) 100 mg PO DAILY PRN sexual 07/26/22 activity #10 tabs alprazolam 2 mg tablet 0.5 mg (1/4 x 2 mg) PO DAILY PRN 06/03/23 anxiety #20 tabs fluorouracil 5 % topical cream See Rx Instructions .Route 06/05/23 .COMPLEX #40 grams prednisone 20 mg tablet 20 mg PO DAILY #7 tabs 01/26/24 Allergies Allergy/AdvReac Type Severity Reaction Status Date / Time No Known Drug Allergies Allergy Verified 01/25/24 22:05 Review of Systems Review of Systems Narrative: See HPI Patient History Medical History Levoscoliosis Pneumonia Scoliosis GERD (gastroesophageal reflux disease) Degenerative joint disease (DJD) of lumbar spine Cervical spine disease Surgical History Anesthesia Anesthesia Status post hernia repair (1987) Family History Brother Age: 81 Malignant neoplasm of liver, unspecified liver malignancy type Father Macular degeneration Mother GERD (gastroesophageal reflux disease) Throat cancer Sister Age: 80 Abdominal aortic aneurysm (AAA) without rupture Heart disease Social History marital status: household members: spouse occupational status: previously employed Smoking Status: Former smoker alcohol intake: current substance use type: does not use Smoking Status: Former smoker alcohol intake frequency: 0-2 drinks per day Substance Use Type: does not use Exam Initial Vital Signs Initial Vital Signs: Vital Signs Temperature 98.7 F 01/25/24 22:05 Pulse Rate 70 01/25/24 22:05 Respiratory Rate 16 01/25/24 22:05 Blood Pressure 142/64 H 01/25/24 22:05 Pulse Oximetry 96 01/25/24 22:05 Oxygen Delivery Method Room Air 01/25/24 22:05 Const General: cooperative and comfortable Skin Other: Patient does have a rash located on both of his ears and along his jaw line both sides and his anterior portion of his neck that extends down to the upper portion of his chest. No vesicles. No pustules. It was not urticaria. Neuro General: patient alert and patient awake Course Orders Ordered: Discontinued Medications Prednisone (Prednisone 20 Mg Tablet) 20 mg PO NOW ONE Stop: 01/26/24 00:03 Last Admin: 01/26/24 00:09 Dose: 20 mg Documented By: [facility] Vital Signs Vital signs: Vital Signs - 8 hr 01/25/24 22:05 01/25/24 23:32 Temperature 98.7 F Pulse Rate 70 66 Respiratory Rate 16 16 Blood Pressure 142/64 H 134/63 Pulse Oximetry 96 96 Oxygen Delivery Method Room Air Room Air MDM - Skin/Abscess/Foreign Bdy MDM Narrative Medical decision making narrative: Patient does have a rash of the areas where he was having symptoms. I have low suspicion this is related to the chemical that he was using yesterday. He was certainly reacting to some sort of environmental exposure. He denies any new medications. No problems breathing. No problems swallowing. This is not an anaphylactic reaction. It was not cellulitis. It was also not consistent with another inflammatory condition or infectious conditions such as shingles. Recommended conservative treatment to include steroids for now. We also discussed the use of Zyrtec. He was given a 1st dose of steroids here in the ER. He was given return precautions and follow-up instructions. He expressed understanding and agreement with plan. Discharge Plan Departure Patient Disposition: Home Clinical Impression: Rash Instructions: DI for Rash Activity Restrictions/Additional Instructions: I do recommend that you continue to take all of your medications as directed. Take the prednisone/steroids on a daily basis like we discussed. Return to the emergency department for new or worsening symptoms. Prescriptions: New prednisone 20 mg tablet 20 mg PO DAILY Qty: 7 0RF No Action sildenafil [Viagra] 100 mg tablet 100 mg PO DAILY PRN (Reason: sexual activity) Qty: 10 3RF Rx Instructions: administer 30 minutes to 4 hours before activity All Day Allergy (cetirizine) 10 mg capsule PO PRN (Reason: allergy symptoms) alprazolam 2 mg tablet 0.5 mg PO DAILY PRN (Reason: anxiety) Qty: 20 0RF fluorouracil 5 % cream See Rx Instructions .ROUTE .COMPLEX Qty: 40 0RF Dose Instruction: apply topically a sufficient amount to cover lesions once daily for 2 weeks Rx Instructions: apply topically a sufficient amount to cover lesions once daily for 2 weeks Referrals: Carrillo Roberts MD [Primary Care Provider] - Stand Alone Forms: Patient Portal/API/Survey
[2024-01-26] MEDS: predniSONE 20 MG TABLET PO (00:09)
== END 2024-01-26 00:14 | disposition home or self-care (01) ==
PROVIDERS: Emergency Provider Emergency Medicine; Family Provider Family Medicine; PCP Family Medicine
DX: R21 Rash and other nonspecific skin eruption (principal)
CPT/HCPCS: 99283

== ENCOUNTER 2024-01-29 16:56 | Emergency (ER) | payer MEDICARE, SELFPAY ==
[2024-01-29 17:15] VITALS: BP 140/105; PULSE 80; RESP 18; TEMP 36.9; O2SAT 95; BMI 22.9
--- NOTE | 2024-01-29 17:46 | ED.EAR ---
HPI - Ear Problem <Maryanne James PA-C - Last Filed: 01/29/24 18:18> General Chief complaint: Ear Stated complaint: lt ear pain Time Seen by Provider: 01/29/24 17:19 Source: patient Mode of arrival: Ambulatory History of Present Illness HPI Narrative: This is a 78-year-old patient presenting with concern for redness and inflammation with scabbing to his bilateral ears. Patient was in the emergency department a few days ago with a full-body rash including his ears. He states that the prednisone he has been taking is overall helping with his rash but came in today because he was concerned about the redness and scabbing on his ears. He states they have not been painful but there has been a few times where there has been a little bit of bleeding due to the dry and scabbing skin present. He denies any other complaints or concerns pain in his ear persistent bleeding or any other concerns. Related Data Home Medications Medication Instructions Recorded Confirmed cetirizine 10 mg capsule (All Day mg PO PRN allergy symptoms 04/07/20 12/26/23 Allergy (cetirizine)) Previous Rx's Medication Instructions Recorded sildenafil 100 mg tablet (Viagra) 100 mg PO DAILY PRN sexual 07/26/22 activity #10 tabs alprazolam 2 mg tablet 0.5 mg (1/4 x 2 mg) PO DAILY PRN 06/03/23 anxiety #20 tabs fluorouracil 5 % topical cream See Rx Instructions .Route 06/05/23 .COMPLEX #40 grams prednisone 20 mg tablet 20 mg PO DAILY #7 tabs 01/26/24 mupirocin 2 % topical ointment 1 applic topical TID 10 days #15 01/29/24 grams Allergies Allergy/AdvReac Type Severity Reaction Status Date / Time No Known Drug Allergies Allergy Verified 01/29/24 17:18 Review of Systems <Maryanne James PA-C - Last Filed: 01/29/24 18:18> Review of Systems Narrative: See HPI Patient History <Maryanne James PA-C - Last Filed: 01/29/24 18:18> Medical History Levoscoliosis Pneumonia Scoliosis GERD (gastroesophageal reflux disease) Degenerative joint disease (DJD) of lumbar spine Cervical spine disease Surgical History Anesthesia Anesthesia Status post hernia repair (1987) Family History Brother Age: 81 Malignant neoplasm of liver, unspecified liver malignancy type Father Macular degeneration Mother GERD (gastroesophageal reflux disease) Throat cancer Sister Age: 80 Abdominal aortic aneurysm (AAA) without rupture Heart disease Social History marital status: household members: spouse occupational status: previously employed Smoking Status: Former smoker alcohol intake: current substance use type: does not use Smoking Status: Former smoker alcohol intake frequency: 0-2 drinks per day Alcohol type: beer Exam <Maryanne James PA-C - Last Filed: 01/29/24 18:18> Narrative Exam Narrative: GENERAL: [78] year old patient appears stated age. Well-developed patient, in mild distress. HEAD: Atraumatic. Normocephalic. EYES: Pupils equal round and reactive. Extraocular motions intact. No scleral icterus. No injection or drainage. ENT: Nose without bleeding, purulent drainage. Airway patent. NECK: Trachea midline. CARDIOVASCULAR: Regular rate and rhythm without murmurs, gallops, or rubs. RESPIRATORY: Clear to auscultation. Breath sounds equal bilaterally. No wheezes, rales, or rhonchi. EXTREMITIES: Moving all extremities normal gait see skin NEURO: AOx3. SKIN: There is a sparse scattered pinkish rash with maculopapular lesions approximately 2-4 mm in size on the patient's torso and legs as well as arms. There is erythema of the bilateral pinna with some scabbing present more pronounced on the left ear. The ears are slightly warm to touch and slightly inflamed, there is no tenderness. right ear canal has some cerumen impacted unable to visualize the TM. No blood in the ear canal. Ear canals normal in appearance. The left TM is visualized and is normal in appearance. Left ear canals also normal in appearance.No rash or erythema of visible areas Initial Vital Signs Initial Vital Signs: Vital Signs Temperature 98.5 F 01/29/24 17:15 Pulse Rate 80 01/29/24 17:15 Respiratory Rate 18 01/29/24 17:15 Blood Pressure 140/105 H 01/29/24 17:15 Pulse Oximetry 95 01/29/24 17:15 Oxygen Delivery Method Room Air 01/29/24 17:15 <Kaylan Mondragon MD - Last Filed: 01/29/24 19:06> Initial Vital Signs Initial Vital Signs: Vital Signs Temperature 98.5 F 01/29/24 17:15 Pulse Rate 80 01/29/24 17:15 Respiratory Rate 18 01/29/24 17:15 Blood Pressure 140/105 H 01/29/24 17:15 Pulse Oximetry 95 01/29/24 17:15 Oxygen Delivery Method Room Air 01/29/24 17:15 Course <Maryanne James PA-C - Last Filed: 01/29/24 18:18> Vital Signs Vital signs: Vital Signs - 8 hr 01/29/24 17:15 01/29/24 18:24 Temperature 98.5 F 98.0 F Pulse Rate 80 69 Respiratory Rate 18 16 Blood Pressure 140/105 H 110/54 L Pulse Oximetry 95 96 Oxygen Delivery Method Room Air Room Air <Kaylan Mondragon MD - Last Filed: 01/29/24 19:06> Vital Signs Vital signs: Vital Signs - 8 hr 01/29/24 17:15 01/29/24 18:24 Temperature 98.5 F 98.0 F Pulse Rate 80 69 Respiratory Rate 18 16 Blood Pressure 140/105 H 110/54 L Pulse Oximetry 95 96 Oxygen Delivery Method Room Air Room Air Medical Decision Making <Maryanne James PA-C - Last Filed: 01/29/24 18:18> Differential Diagnosis Differential Diagnosis: rash, dry skin, cellulitis Medical Records Medical records reviewed: Yes I reviewed the patient's medical records. MDM Narrative Medical decision making narrative: this is an overall well-appearing 78-year-old male presenting with concern for scabbing and redness of his bilateral external ears. Reviewed the patient's chart. He was seen in this emergency department a few days ago for a generalized rash. He was started on prednisone. Per the patient his symptoms have overall been improving. He is well-appearing today though does have erythema and inflammation present of the bilateral pinna. Per chart review this was 1 of the areas notably affected by rash a few days ago when he was originally seen. exam today is suggestive of the natural progression of the rash healing with some scabbing present and persistent erythema. Cellulitis is considered however he has no tenderness. Given the dry and scabbing skin present as well as possibility of mild infection prescription today for topical antibiotic ointment mupirocin which will both help to keep the area moisturized and prevent/ fight infection. Based on exam today do not feel oral antibiotics are indicated. Patient was advised to monitor for new or worsening symptoms and follow up closely with his PCP. Discharge Plan Departure Patient Disposition: Home Clinical Impression: Rash, Dry skin Activity Restrictions/Additional Instructions: *You have been diagnosed with [Ear rash, dry skin ] *What to do: *Please continue to take your regular medications as directed. [ 1] New medication prescriptions sent to your pharmacy: [ mupirocin] [ ] New medication written as a paper prescription [ ] No new medications given *Please follow up with your primary care provider in 2-3 days, call for an appointment. Let them know you were seen in the Emergency Department and that we ask that you be seen in follow up. We will electronically transmit a record of today's note if your PCP is in our system. you came in today with concern that you are ears are red and have dry skin on them with some scabbing. These have not been painful for you or itchy but they are definitely red appearing today on exam. This was part of the original rash you had a few days ago when he came into the emergency department and I suspect that the changes to your ears are simply the natural progression of the rash as the area begins to heal you do have some scabbing present on your ears and the skin is definitely dry in this area. I recommend you do continue the prednisone medication you were prescribed as it seems to be helping your overall rash. However I would like you to start using a topical antibiotic ointment that as Vaseline based on your ears both to ensure that the area stays moisturized and also to fight against possible infection. If the area does become painful, continues to have any bleeding or is otherwise problematic please have it rechecked. Recommend overall that you follow up with your primary care for a recheck since you have had this full body rash recently. I hope you are feeling better soon. *If you do not have a primary care provider please contact the [facility] Resource line at [phone]. They will ask some questions about your medical history and help get you set up with a doctor in the community. *Return to Emergency Department if you should have any new, worsening or concerning symptoms, such as [fever greater than 101 F, shaking chills, worsening pain, persistent vomiting or other bothersome symptoms] Prescriptions: New mupirocin 2 % ointment 1 applic topical TID 10 Days Qty: 15 0RF No Action sildenafil [Viagra] 100 mg tablet 100 mg PO DAILY PRN (Reason: sexual activity) Qty: 10 3RF Rx Instructions: administer 30 minutes to 4 hours before activity All Day Allergy (cetirizine) 10 mg capsule PO PRN (Reason: allergy symptoms) alprazolam 2 mg tablet 0.5 mg PO DAILY PRN (Reason: anxiety) Qty: 20 0RF fluorouracil 5 % cream See Rx Instructions .ROUTE .COMPLEX Qty: 40 0RF Dose Instruction: apply topically a sufficient amount to cover lesions once daily for 2 weeks Rx Instructions: apply topically a sufficient amount to cover lesions once daily for 2 weeks prednisone 20 mg tablet 20 mg PO DAILY Qty: 7 0RF Referrals: Carrillo Roberts MD [Primary Care Provider] - Stand Alone Forms: Patient Portal/API/Survey ED Sign-out <Kaylan Mondragon MD - Last Filed: 01/29/24 19:06> Cosign ED Attending Cosignature Attestation: I did not see this patient. I was available all times for consultation.
--- NOTE | 2024-01-29 17:55 | PC.NURSE ---
Pt was seen in ED before for a full body rash. Was prescribed prednisone and he is currently taking as prescribed. He came in today after concern for redness and lumps on the external cartilage of his bilateral ears. He denies any pain or change of hearing of both ears. There is some dried blood on his LEFT upper external ear. Appears to be from a small scratch. Provider is at bedside and visualizes inside of ears while this RN is in room. Reports being hard of hearing at baseline. Pt reports full body rash has improved since taking prednisone.
[2024-01-29 18:24] VITALS: BP 110/54; PULSE 69; RESP 16; TEMP 36.7; O2SAT 96
== END 2024-01-29 18:24 | disposition home or self-care (01) ==
PROVIDERS: Emergency Provider Student in an Organized Health Care Education/Training Program; Family Provider Family Medicine; PCP Family Medicine
DX: R21 Rash and other nonspecific skin eruption (principal)
CPT/HCPCS: 99281

== ENCOUNTER → 2024-05-19 09:05 | Outpatient (CLI) | payer MEDICARE, SELFPAY ==
[2024-05-19 10:00] LABS: Add Manual Diff / Slide Review NO; Basophils Absolute Auto 100 /uL (0-100); Basophils Percent Auto 0.9 % (0-2); Eosinophils Absolute Auto 200 /uL (0-450); Eosinophils Percent Auto 4.4 % (2-4); Hemoglobin 14.2 g/dL (13.5-17.5); Lymphocytes Absolute Auto 1600 /uL (1100-4500); Lymphocytes Percent Auto 29.4 % (25-40); Mean Corpuscular HGB Conc 33.8 % (30-36); Mean Corpuscular Hemoglobin 31.4 PG (26-34); Mean Corpuscular Volume 92.8 fL (80-100); Monocytes Absolute Auto 600 /uL (0-900); Monocytes Percent Auto 10.4 % (3-14); Neutrophils Absolute Auto 2900 /uL (1500-7000); Neutrophils Percent Auto 54.9 % (50-75); Platelet Count 268 X10^3/uL (150-400); Red Blood Cell Count 4.52 X10^6/uL (4.5-5.9); Red Cell Distribution Width 14.1 % (11.6-14.8); White Blood Cell Count 5.3 X10^3/uL (4.5-11.0)
[2024-05-19 10:19] LABS: Alanine Aminotransferase 19 IU/L (<50); Albumin 4.2 g/dL (3.5-5.0); Albumin Globulin Ratio 1.6 (1.0-2.8); Alkaline Phosphatase 44 U/L (38-126); Aspartate Aminotransferase 27 IU/L (17-59); BUN Creatinine Ratio 25.6 (6-22); Bilirubin Total 0.6 mg/dL (0.2-1.3); Blood Urea Nitrogen 23 mg/dL (9-20); Calcium 9.4 mg/dL (8.4-10.2); Carbon Dioxide 28 mmol/L (22-32); Chloride 107 mmol/L (98-107); Cholesterol 203 mg/dL (140-199); Estimated Glomerular Filt Rate > 60 mL/min (>60); Globulin 2.6 g/dL (1.7-4.1); Glucose 97 mg/dL (80-110); HDL Cholesterol 55 mg/dL (40-60); HEMOLYSIS < 15 (0-50); LDL Cholesterol Calculated 134 mg/dL (<100); Potassium 4.4 mmol/L (3.4-5.1); Sodium 139 mmol/L (137-145); Total Protein 6.8 g/dL (6.3-8.2); Triglycerides 70 mg/dL (35-150)
[2024-05-19 10:48] LABS: TSH w/ Reflex to FT4 2.13 uIU/mL (0.47-4.68)
== END ==
PROVIDERS: Family Provider Family Medicine; PCP Family Medicine; Referring Provider Family Medicine; Visit Provider Family Medicine
DX: E78.2 Mixed hyperlipidemia (principal); Z12.5 Encounter for screening for malignant neoplasm of prostate
CPT/HCPCS: 36415; 80053; 80061; 84443; 85025; G0103

== ENCOUNTER → 2024-06-18 16:28 | Outpatient (CLI) | payer MEDICARE, SELFPAY ==
--- NOTE | 2024-06-18 16:30 | DI.RAD.S_ITS ---
PROCEDURE: XR KNEE LT 3V INDICATIONS: left knee pain TECHNIQUE: 3 views of the knee were acquired. COMPARISON: [facility], CR, XR KNEE RT 3V, 12/26/2023, 11:32. FINDINGS: Bones: No fractures or dislocations. No significant patellar subluxation. Mild tricompartmental osteoarthritis is seen more notably in medial femoral tibial compartment. No suspicious bony lesions. Soft tissues: Small suprapatella joint effusion. No suspicious soft tissue calcifications. IMPRESSION: No acute left knee fracture or dislocation. Small suprapatellar joint effusion and mild tricompartmental osteoarthritis as above. Dictated by: Ricardo Dobbins M.D. on 06/20/2024 at 12:58 Approved by: Ricardo Dobbins M.D. on 06/20/2024 at 12:58
== END ==
PROVIDERS: Family Provider Family Medicine; PCP Family Medicine; Referring Provider Family Medicine; Visit Provider Family Medicine
DX: M17.12 Unilateral primary osteoarthritis, left knee (principal); M25.562 Pain in left knee; M25.462 Effusion, left knee
CPT/HCPCS: 73562

== ENCOUNTER → 2024-09-09 08:16 | Outpatient (CLI) | payer MEDICARE, SELFPAY ==
--- NOTE | 2024-09-09 08:18 | DI.RAD.S_ITS ---
PROCEDURE: XR THORACIC SPINE 3V INDICATIONS: paresthesias TECHNIQUE: 3 views of the thoracic spine were acquired. COMPARISON: None. FINDINGS: Bones: No fractures or dislocations. No suspicious bony lesions. 12 pairs of ribs are noted, and appear intact where visualized. S shaped scoliosis of the thoracolumbar spine. Spine degenerative disc disease and facet arthropathy. Soft tissues: No paravertebral stripe thickening. IMPRESSION: Multilevel degenerative disc disease. Multilevel facet arthropathy. No fracture. No acute osseous lesion. If symptoms and/or clinical suspicion for pathology persists, evaluation with MRI should be considered for further assessment. Dictated by: Denita Rodriguez MD, PhD on 09/09/2024 at 9:18 Approved by: Denita Rodriguez MD, PhD on 09/09/2024 at 9:19
--- NOTE | 2024-09-09 08:18 | DI.RAD.S_ITS ---
PROCEDURE: XR CERVICAL SPINE 2V OR 3V INDICATIONS: paresthesias TECHNIQUE: 3 view(s) of the cervical spine were acquired. COMPARISON: None. FINDINGS: Bones: No fractures or dislocations to the C7 level. The lateral masses of C1 appear intact on the odontoid view. No suspicious bony lesions. Spine degenerative disc disease, uncovertebral arthropathy and facet arthropathy. Soft tissues: No prevertebral soft tissue swelling. IMPRESSION: Multilevel degenerative disc disease. Multilevel facet and uncovertebral arthropathy. No fracture. No acute osseous lesion. If symptoms and/or clinical suspicion for pathology persists, evaluation with MRI should be considered for further assessment. Dictated by: Denita Rodriguez MD, PhD on 09/09/2024 at 9:17 Approved by: Denita Rodriguez MD, PhD on 09/09/2024 at 9:18
== END ==
PROVIDERS: Family Provider Family Medicine; PCP Family Medicine; Referring Provider Physician Assistant; Visit Provider Physician Assistant
DX: M47.812 Spondylosis without myelopathy or radiculopathy, cervical region (principal); M50.30 Other cervical disc degeneration, unspecified cervical region; R20.2 Paresthesia of skin; M47.814 Spondylosis without myelopathy or radiculopathy, thoracic region; M51.34 Other intervertebral disc degeneration, thoracic region
CPT/HCPCS: 72040; 72072

== ENCOUNTER → 2024-12-03 15:51 | Outpatient (CLI) | payer MEDICARE, SELFPAY ==
[2024-12-09 13:36] LABS: 41 kD IgG Bands Present (.); Lyme IgG Line Blot Interpretat Negative (Negative); Lyme IgM Line Blot Interpretat Negative (Negative)
== END ==
PROVIDERS: Family Provider Family Medicine; PCP Family Medicine; Referring Provider Family Medicine; Visit Provider Family Medicine
DX: T14.8XXA Other injury of unspecified body region, initial encounter (principal); W57.XXXA Bitten or stung by nonvenomous insect and other nonvenomous arthropods, initial encounter
CPT/HCPCS: 36415; 86617